=== PATIENT | female | born 1955 | race Caucasian/White ===

== ENCOUNTER 2019-11-07 12:01 | Inpatient (IN) ==
[2019-11-07] MEDS ORDERED: MoRPHine SULFATE 4 MG/ML 1 ML CARP\\VIAL IV STA (12:26)
[2019-11-07] MEDS ORDERED: ONDANSETRON INJ 2 MG/ML 2 ML VIAL IV STA (12:26)
[2019-11-07] MEDS ORDERED: SODIUM CHLORIDE 0.9% 500 ML IV SCH ×2 (12:30→13:15)
--- NOTE | 2019-11-07 12:32 | Emergency Department Note ---
History of Present Illness General Chief complaint: Abdominal Pain Stated complaint: STOMACH PAIN FOR 4/5 DAYS - VOMITING Time Seen by Provider: 11/07/19 12:14 Source: patient Mode of arrival: ambulatory Limitations: no limitations History of Present Illness Provider complaint: Lower abdominal pain Onset (ago): day(s) 4 Location: abdomen Radiation: non-radiation Severity: severe Pain Consistency: + constant Quality: + burning and + other (Cramping) Relieved By: + none Associated symptoms: + fever/chills (Tactile fevers) and + nausea/vomiting; no chest pain, no cough and no shortness of breath This is a 64-year-old female presents with lower abdominal pain for the past 4 to 5 days. She describes it as a cramping and burning sensation. It is associated with nausea and vomiting. She also states that for the past few days she has had urinary frequency and urgency with little output. She also states that she has not been able to have a bowel movement 2 days but also admits that she has not really been eating very much. She did try to eat a bowl of cereal today and she threw it up. She complains of tactile fevers. She denies any known exposure to COVID-19 or any shortness of breath, cough, or chest pain. She has no loss of taste but states that she chronically has loss of smell from chronic allergies. No modifying factors for her pain. She rates it as severe. Home Medications Home Medications Medication Instructions Recorded Confirmed Type acetaminophen [Tylenol Extra 500 mg PO Q8H PRN 08/28/19 11/07/19 History Strength] aspirin 325 mg PO DAILY PRN 08/28/19 11/07/19 History bupropion HCl 150 mg PO QAM 08/28/19 11/07/19 History hydroxyzine pamoate 25 mg PO BID 08/28/19 11/07/19 History hydroxyzine pamoate 50 mg PO HS 08/28/19 11/07/19 History quetiapine 300 mg PO HS 08/28/19 11/07/19 History trazodone 150 mg PO HS PRN 08/28/19 11/07/19 History Allergies Allergy/AdvReac Type Severity Reaction Status Date / Time No Known Allergies Allergy Unverified 11/07/19 13:11 Past Med/Surg History Medical History Depression Surgical History No pertinent past surgical history Social History Preferred Language: Luxembour[place] Feels Safe at Home: Yes Smoking Status: Unknown if ever smoked Review of Systems See HPI for pertinent positives & negatives. and A total of 10 systems reviewed and were otherwise negative Physical Exam Vital Signs Vital Signs - 24 hr 11/07/19 12:04 11/07/19 12:43 11/07/19 13:19 Temperature 37.4 C Temperature Source Oral Pulse Rate 94 H 82 Pulse Rate from SpO2 Sensor Respiratory Rate 20 16 Respiratory Effort / Characteristics Non-Labored Spontaneous Respiratory Depth Normal Respiratory Pattern Regular Blood Pressure 171/84 H 139/75 Blood Pressure Mean 113 104 Blood Pressure Position Sitting Pulse Oximetry 97 Oxygen Delivery Method Room Air Room Air Room Air Sepsis Recent Fever Within 48 Hours No Sepsis New/Unexplained Change in Mental Status No Sepsis Action Taken by Nursing No Action Required 11/07/19 13:20 11/07/19 13:22 11/07/19 13:30 Temperature Temperature Source Pulse Rate 78 89 Pulse Rate from SpO2 Sensor 76 88 Respiratory Rate 21 13 Respiratory Effort / Characteristics Respiratory Depth Respiratory Pattern Blood Pressure Blood Pressure Mean Blood Pressure Position Pulse Oximetry 96 94 Oxygen Delivery Method Room Air Room Air Room Air Sepsis Recent Fever Within 48 Hours Sepsis New/Unexplained Change in Mental Status Sepsis Action Taken by Nursing 11/07/19 13:31 11/07/19 13:40 11/07/19 13:50 Temperature Temperature Source Pulse Rate 86 89 82 Pulse Rate from SpO2 Sensor 86 87 Respiratory Rate 15 22 19 Respiratory Effort / Characteristics Respiratory Depth Respiratory Pattern Blood Pressure 180/82 H Blood Pressure Mean 125 Blood Pressure Position Pulse Oximetry 94 97 Oxygen Delivery Method Room Air Room Air Room Air Sepsis Recent Fever Within 48 Hours Sepsis New/Unexplained Change in Mental Status Sepsis Action Taken by Nursing 11/07/19 14:00 11/07/19 14:10 11/07/19 14:20 Temperature Temperature Source Pulse Rate 84 79 81 Pulse Rate from SpO2 Sensor Respiratory Rate 17 18 22 Respiratory Effort / Characteristics Respiratory Depth Respiratory Pattern Blood Pressure Blood Pressure Mean Blood Pressure Position Pulse Oximetry Oxygen Delivery Method Room Air Room Air Room Air Sepsis Recent Fever Within 48 Hours Sepsis New/Unexplained Change in Mental Status Sepsis Action Taken by Nursing 11/07/19 14:30 11/07/19 14:40 Temperature Temperature Source Pulse Rate 84 77 Pulse Rate from SpO2 Sensor Respiratory Rate 17 17 Respiratory Effort / Characteristics Respiratory Depth Respiratory Pattern Blood Pressure Blood Pressure Mean Blood Pressure Position Pulse Oximetry Oxygen Delivery Method Room Air Room Air Sepsis Recent Fever Within 48 Hours Sepsis New/Unexplained Change in Mental Status Sepsis Action Taken by Nursing Constitutional: Vital signs reviewed. Eyes: Pupils are equal round reactive to light. Conjunctiva are noninjected. ENT: Pharynx is clear without erythema or exudate. Mucous membranes are moist. Neck supple without meningeal signs. Respiratory: Clear to auscultation bilaterally. Breath sounds are equal bilaterally. Cardiovascular: Regular rate and rhythm. No rubs or gallops. GI: Soft, nondistended left lower quadrant and suprapubic tenderness. No guarding. Bowel sounds are present. Musculoskeletal: No peripheral edema. No lower extremity tenderness. Integumentary: No cyanosis. or jaundice. Neurological: The patient is awake and alert. No focal deficits. Psychiatric: Anxious appearing. Course Administered Medications Sodium Chloride (Nss 1000ml) 1,000 mls @ 125 mls/hr IV .Q8H [facility] Stop: 12/07/19 16:59 Last Admin: 11/07/19 16:23 Dose: 125 mls/hr Documented by: [id number] Discontinued Medications Sodium Chloride (Nss) 500 mls @ 999 mls/hr IV .Q31M [facility] Stop: 11/07/19 13:00 Last Infusion: 11/07/19 13:16 Dose: 0 mls/hr Documented by: [id number] Admin: 11/07/19 12:42 Dose: 999 mls/hr Documented by: [id number] Sodium Chloride (Nss) 500 mls @ 125 mls/hr IV .Q4H [facility] Stop: 12/07/19 13:14 Last Infusion: 11/07/19 15:55 Dose: 0 mls/hr Documented by: [id number] Admin: 11/07/19 13:19 Dose: 125 mls/hr Documented by: [id number] Piperacillin Sod/Tazobactam (Sod 3.375 gm/ Dextrose) 115 mls @ 230 mls/hr IV 1630 ONE; Protocol Stop: 11/07/19 16:59 Last Infusion: 11/07/19 17:09 Dose: 0 mls/hr Documented by: [id number] Admin: 11/07/19 16:39 Dose: 230 mls/hr Documented by: [id number] Lorazepam (Ativan) 0.5 mg PO ONE ONE Stop: 11/07/19 16:19 Last Admin: 11/07/19 16:23 Dose: 0.5 mg Documented by: [id number] Morphine Sulfate (Morphine Sulfate) 4 mg IV NOW STA Stop: 11/07/19 12:27 Last Admin: 11/07/19 12:40 Dose: 4 mg Documented by: [id number] Morphine Sulfate (Morphine Sulfate) 2 mg IV NOW STA Stop: 11/07/19 13:10 Last Admin: 11/07/19 13:19 Dose: 2 mg Documented by: [id number] Morphine Sulfate (Morphine Sulfate) 2 mg IV NOW STA Stop: 11/07/19 16:55 Last Admin: 11/07/19 17:24 Dose: 2 mg Documented by: [id number] Ondansetron HCl (Zofran) 4 mg IV NOW STA Stop: 11/07/19 12:27 Last Admin: 11/07/19 12:40 Dose: 4 mg Documented by: [id number] Medical Decision Making Differential Diagnosis Diverticulitis, perforation, abscess, bowel obstruction, constipation, UTI, urinary retention Medical Records Attestation: I reviewed the patient's medical records. Patient was seen here September 29 for urinary symptoms. She was diagnosed with UTI and placed on 3 days of Cipro. Urine culture was negative. Home Medications Current Medication List: was personally reviewed by me Laboratory Data Attestation: I reviewed the patient's lab results. Result diagrams: 11/07/19 12:33 11/07/19 12:33 Lab Results 11/07/19 11/07/19 11/07/19 Range/Units 12:33 12:33 12:33 WBC 11.81 H (4.8-10.8) K/uL RBC 4.53 (4.2-5.4) M/uL Hgb 11.6 L (12.0-16.0) g/dL Hct 36.5 L (37-47) % MCV 80.6 (80-100) fL MCH 25.6 (25-34) pg MCHC 31.8 L (32-36) g/dL RDW Std Deviation 42.8 (36.4-46.3) fL RDW Coeff of Chanelle 14.6 H (11.5-14.5) % Plt Count 322 (130-400) K/uL MPV 9.1 (7.4-10.4) fL Immature Gran % (Auto) 0.3 % Neut % (Auto) 70.6 % Lymph % (Auto) 16.1 % [place] % (Auto) 8.6 % Eos % (Auto) 3.9 % Baso % (Auto) 0.5 % Immature Gran # (Auto) 0.04 H (0.00-0.02) K/uL Neut # (Auto) 8.33 H (1.4-6.5) K/uL Lymph # (Auto) 1.90 (1.2-3.4) K/uL [place] # (Auto) 1.02 H (0.11-0.59) K/uL Eos # (Auto) 0.46 (0-0.5) K/uL Baso # (Auto) 0.06 (0-0.2) K/uL Sodium 138 (136-145) mmol/L Potassium 3.8 (3.5-5.1) mmol/L Chloride 103 (98-107) mmol/L Carbon Dioxide 27 (21-32) mmol/L Anion Gap 8.0 (3-11) BUN 29 H (7-18) mg/dl Creatinine 2.25 H (0.6-1.2) mg/dl Est Cr Clr Drug Dosing 28.1 ml/min Est GFR ( Amer) 25.7 Est GFR (Non-Af Amer) 22.2 BUN/Creatinine Ratio 13.1 (10-20) Glucose 193 H (70-99) mg/dl Calcium 9.5 (8.5-10.1) mg/dl Total Bilirubin 0.5 (0.2-1) mg/dl AST 17 (15-37) U/L ALT 33 (12-78) U/L Alkaline Phosphatase 125 H (45-117) U/L Total Protein 7.6 (6.4-8.2) gm/dl Albumin 3.3 L (3.4-5.0) gm/dl Globulin 4.3 H (2.5-4.0) gm/dl Albumin/Globulin Ratio 0.8 L (0.9-2) Lipase 94 Cancelled (73-393) U/L Urine Color Urine Appearance (Clear) Urine pH (4.5-7.5) Ur Specific [place] (1.000-1.030) Urine Protein (Negative) Urine Glucose (UA) (Negative) Urine Ketones (Negative) Urine Blood (Negative) Urine Nitrite (Negative) Urine Bilirubin (Negative) Urine Urobilinogen (Negative) Ur Leukocyte Esterase (Negative) 11/07/19 Range/Units 13:35 WBC (4.8-10.8) K/uL RBC (4.2-5.4) M/uL Hgb (12.0-16.0) g/dL Hct (37-47) % MCV (80-100) fL MCH (25-34) pg MCHC (32-36) g/dL RDW Std Deviation (36.4-46.3) fL RDW Coeff of Chanelle (11.5-14.5) % Plt Count (130-400) K/uL MPV (7.4-10.4) fL Immature Gran % (Auto) % Neut % (Auto) % Lymph % (Auto) % [place] % (Auto) % Eos % (Auto) % Baso % (Auto) % Immature Gran # (Auto) (0.00-0.02) K/uL Neut # (Auto) (1.4-6.5) K/uL Lymph # (Auto) (1.2-3.4) K/uL [place] # (Auto) (0.11-0.59) K/uL Eos # (Auto) (0-0.5) K/uL Baso # (Auto) (0-0.2) K/uL Sodium (136-145) mmol/L Potassium (3.5-5.1) mmol/L Chloride (98-107) mmol/L Carbon Dioxide (21-32) mmol/L Anion Gap (3-11) BUN (7-18) mg/dl Creatinine (0.6-1.2) mg/dl Est Cr Clr Drug Dosing ml/min Est GFR ( Amer) Est GFR (Non-Af Amer) BUN/Creatinine Ratio (10-20) Glucose (70-99) mg/dl Calcium (8.5-10.1) mg/dl Total Bilirubin (0.2-1) mg/dl AST (15-37) U/L ALT (12-78) U/L Alkaline Phosphatase (45-117) U/L Total Protein (6.4-8.2) gm/dl Albumin (3.4-5.0) gm/dl Globulin (2.5-4.0) gm/dl Albumin/Globulin Ratio (0.9-2) Lipase (73-393) U/L Urine Color Yellow Urine Appearance Clear (Clear) Urine pH 7.0 (4.5-7.5) Ur Specific [place] 1.016 (1.000-1.030) Urine Protein Negative (Negative) Urine Glucose (UA) Negative (Negative) Urine Ketones Negative (Negative) Urine Blood Negative (Negative) Urine Nitrite Negative (Negative) Urine Bilirubin Negative (Negative) Urine Urobilinogen Negative (Negative) Ur Leukocyte Esterase Negative (Negative) Imaging Data Radiologist's Impression: CT OF THE ABDOMEN AND PELVIS WITHOUT CONTRAST CLINICAL HISTORY: Lower abdominal pain. Evaluate for diverticulitis or obstruction. COMPARISON STUDY: CT of the abdomen and pelvis October 29, 2008. KUB May 02, 2010. TECHNIQUE: Axial images of the abdomen and pelvis were obtained without IV contrast. Images were reviewed in the axial, sagittal, and coronal planes. Automated exposure control was utilized for the study. A dose lowering technique was utilized adhering to the principles of ALARA. FINDINGS: Lung bases are unremarkable. Evaluation of the abdomen and pelvis is suboptimal on this unenhanced examination. The gallbladder is mildly distended. There is no pericholecystic infiltration. Unenhanced images of the liver, spleen, adrenal glands and pancreas are unremarkable. Small bilateral renal calculi measure up to 3 mm. There are no ureteral calculi. There is no hydronephrosis or hydroureter. Note is made of a large amount stool within the colon. There is mild wall thickening and pericolonic infiltration involving the mid to distal descending colon and the proximal sigmoid colon with change in caliber at the level of the proximal sigmoid colon shown on axial image 338 of 486. No free air or abscess is present. Trace adjacent fluid is noted. There is no stool within the rectum. No renal lesion is identified transition point although these may be occult by CT. IMPRESSION: 1. Large amount of stool within the colon, particularly within the mid to distal descending colon and proximal sigmoid colon with associated mild colonic wall t hickening and pericolonic infiltration. Stercoral colitis is favored. A nonspecific colitis could appear similar but is considered less likely. No free air or abscess. Discrete caliber change at the level of the proximal sigmoid colon with significant upstream stool and no downstream stool. No lesion identified by CT although mucosal lesions may be occult by CT and nonemergent colonoscopy is recommended. 2. Bilateral nephrolithiasis. No ureteral calculi or hydronephrosis. 3. Mild gallbladder distention. No pericholecystic infiltration. ACT 112: Negative or not required by law. Electronically signed by: Nir Yang M.D. 11/07/2019 1:17 PM Blood Pressure Blood Pressure Findings: Elevated blood pressure Blood Pressure Disposition: Referred to patients primary care provider MEAGHAN Narrative I did evaluate the patient as noted above. The patient is presenting with lower abdominal pain with tactile fevers and vomiting. She is tender in the left lower quadrant and suprapubic region. She has also had limited bowel movements and decreased urination. IV access was established. The patient was placed on a continuous radiation monitor. I did treat the patient with normal saline, morphine and Zofran IV. She had continued pain and so I gave her an additional 2 mg IV. I did order a urine analysis. There is no evidence of a UTI. I did order and review the patient's blood work as noted in the electronic medical record. Her white blood cell count is slightly elevated. She is slightly anemic. Creatinine is elevated at 2.25. I did give her additional IV fluids with normal saline. I did order a CT of the abdomen and pelvis. I did review the images myself as well as the radiology report as described above. There is no evidence of bowel obstruction but there is significant fecal retention. No free air or abscess is noted. I did discuss the test results with the patient. I did order a milk and molasses enema. I did recommend hospitalization for further care and evaluation. I did discuss the case with the hospitalist and director case management. Impression & Plan NATTY (acute kidney injury), Abdominal pain, Constipation Discharge Plan Visit Data *Final* Discharge Date/Time: 11/07/19 15:28 Chief Complaint: Abdominal Pain Stated Complaint: STOMACH PAIN FOR 4/5 DAYS - VOMITING ED Provider: Zach Arndt Discharge Problem: NATTY (acute kidney injury), Abdominal pain, Constipation Patient Disposition: Admitted As Inpatient Condition: Good Discharge Instructions Interventions: ED Discharge Assessment Last Done: 11/07/19 15:28 Discharge Problem: Abdominal pain Qualifiers: Abdominal location: upper abdomen, unspecified Qualified Code(s): R10.10 - Upper abdominal pain, unspecified Constipation Qualifiers: Constipation type: unspecified constipation type Qualified Code(s): K59.00 - Constipation, unspecified
[2019-11-07 12:45] LABS: Basophils # (auto) 0.06 K/uL (0-0.2); Basophils % (auto) 0.5 %; Eosinophils # (auto) 0.46 K/uL (0-0.5); Eosinophils % (auto) 3.9 %; Hematocrit (blood only) 36.5 % (37-47); Hemoglobin 11.6 g/dL (12.0-16.0); Immature Granulocytes # (auto) 0.04 K/uL (0.00-0.02); Immature Granulocytes % (auto) 0.3 %; Lymphocytes % (auto) 16.1 %; Mean Corpuscular Hemoglobin 25.6 pg (25-34); Mean Corpuscular Hgb Conc 31.8 g/dL (32-36); Mean Corpuscular Volume 80.6 fL (80-100); Mean Platelet Volume 9.1 fL (7.4-10.4); Monocytes # (auto) 1.02 K/uL (0.11-0.59); Monocytes % (auto) 8.6 %; Neutrophils # (auto) 8.33 K/uL (1.4-6.5); Neutrophils % (auto) 70.6 %; Platelet Count 322 K/uL (130-400); RDW Coefficient of Variation 14.6 % (11.5-14.5); RDW Standard Deviation 42.8 fL (36.4-46.3); Red Blood Count 4.53 M/uL (4.2-5.4); White Blood Count 11.81 K/uL (4.8-10.8)
[2019-11-07 13:03] LABS: Albumin Level 3.3 gm/dl (3.4-5.0); BUN Creatinine Ratio 13.1 (10-20); Calcium 9.5 mg/dl (8.5-10.1); Creatinine Clr Calc Pharmacy 28.1 ml/min; Est GFR (African American) 25.7; Est GFR (Non-African American) 22.2; Potassium 3.8 mmol/L (3.5-5.1)
[2019-11-07 13:06] LABS: Albumin Globulin Ratio 0.8 (0.9-2); Bilirubin,Total 0.5 mg/dl (0.2-1); Globulin 4.3 gm/dl (2.5-4.0); Total Protein 7.6 gm/dl (6.4-8.2)
[2019-11-07] MEDS ORDERED: MoRPHine SULFATE 2 MG/ML CARP IV STA ×2 (13:09→16:54)
--- NOTE | 2019-11-07 13:18 | CT Scan Report ---
CT OF THE ABDOMEN AND PELVIS WITHOUT CONTRAST CLINICAL HISTORY: Lower abdominal pain. Evaluate for diverticulitis or obstruction. COMPARISON STUDY: CT of the abdomen and pelvis October 29, 2008. KUB May 02, 2010. TECHNIQUE: Axial images of the abdomen and pelvis were obtained without IV contrast. Images were revi ewed in the axial, sagittal, and coronal planes. Automated exposure control was utilized for the luis dy. A dose lowering technique was utilized adhering to the principles of ALARA. FINDINGS: Lung bases are unremarkable. Evaluation of the abdomen and pelvis is suboptimal on this une nhanced examination. The gallbladder is mildly distended. There is no pericholecystic infiltration. U nenhanced images of the liver, spleen, adrenal glands and pancreas are unremarkable. Small bilateral renal calculi measure up to 3 mm. There are no ureteral calculi. There is no hydronephrosis or hydrou reter. Note is made of a large amount stool within the colon. There is mild wall thickening and peric olonic infiltration involving the mid to distal descending colon and the proximal sigmoid colon with change in caliber at the level of the proximal sigmoid colon shown on axial image 338 of 486. No free air or abscess is present. Trace adjacent fluid is noted. There is no stool within the rectum. No re nal lesion is identified transition point although these may be occult by CT. IMPRESSION: 1. Large amount of stool within the colon, particularly within the mid to distal descending colon and proximal sigmoid colon with associated mild colonic wall thickening and pericolonic infiltration. St ercoral colitis is favored. A nonspecific colitis could appear similar but is considered less likely. No free air or abscess. Discrete caliber change at the level of the proximal sigmoid colon with sign ificant upstream stool and no downstream stool. No lesion identified by CT although mucosal lesions m ay be occult by CT and nonemergent colonoscopy is recommended. 2. Bilateral nephrolithiasis. No ureteral calculi or hydronephrosis. 3. Mild gallbladder distention. No pericholecystic infiltration. ACT 112: Negative or not required by law. Electronically signed by: Nir Yang M.D. 11/07/2019 1:17 PM
[2019-11-07 14:11] LABS: Appearance Urine Clear (Clear); Bilirubin Urine Negative (Negative); Blood Urine Negative (Negative); Color Urine Yellow; Glucose Urine UA Negative (Negative); Ketones Urine Negative (Negative); Leukocyte Esterase Urine Negative (Negative); Nitrite Urine Negative (Negative); Protein Urine Negative (Negative); Specific Gravity Urine 1.016 (1.000-1.030); Urobilinogen Urine Negative (Negative)
--- NOTE | 2019-11-07 14:53 | History & Physical Report ---
Date of Service November 07, 2019 Assessment & Plan (1) NATTY (acute kidney injury): Admit med surg Secondary to dehydration from low po intake nausea and dry heaves over the last few days. Creat 2.25 on admission NSS @ 125 mls/hr CMP, CBC am (2) Abdominal pain: On CT - large amount of stool in the colon with stercoral colitis. No lesion identified but recommend follow up non emergent colonoscopy. Mild gallbladder distention. No pericholecystic infiltration. Secondary to constipation U/A is clean, interstitial cystitis? Will give pyridium to see if this alleviates bladder pain at all. Simon catheter Patient with leukocytosis and colitis - will give IV Zosyn NPO for now (3) Constipation: Milk and molasses enema in ED Colace Will wait to see if enema is successful, many need to use a soap suds enema if not (4) Anxiety: Continue home vistaril, quetiapine, trazadone Patient is visibly anxious on exam and complaining of feeling so - one time dose of ativan for patient's anxiety (5) Depression: As above (6) Elevated alkaline phosphatase level: repeat level am (7) Hyperglycemia: Blood sugar 193 on admission, no history of DM A1c am (8) DVT prophylaxis: heparin subq Case management to assist with concerns for patient's who is at home 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 History of Present Illness Ms. Suarez presents for abdominal pain with dry heaving x 4-5 days. Pain is central to left lower abdomen. She has not had a bowel movement in at least two days She also has had urinary hesitancy. She denies fevers or aches, cough, sob, chest pain, palpitations, or skin rash. She also has fairly severe anxiety. She has no sick contacts. Her partner and her live alone and have not seen anyone else in 2 weeks since her last trip to the grocery store. 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 Pmhx: anxiety Social: lives with partner, never smoker, no alcohol, retired Family: No significant family medical history Primary Care Provider: NO PCP Allergies Allergy/AdvReac Type Severity Reaction Status Date / Time No Known Allergies Allergy Unverified 11/07/19 13:11 Home Medications Home Medications Medication Instructions Recorded Confirmed Type acetaminophen [Tylenol Extra 500 mg PO Q8H PRN 08/28/19 11/07/19 History Strength] aspirin 325 mg PO DAILY PRN 08/28/19 11/07/19 History bupropion HCl 150 mg PO QAM 08/28/19 11/07/19 History hydroxyzine pamoate 25 mg PO BID 08/28/19 11/07/19 History hydroxyzine pamoate 50 mg PO HS 08/28/19 11/07/19 History quetiapine 300 mg PO HS 08/28/19 11/07/19 History trazodone 150 mg PO HS PRN 08/28/19 11/07/19 History Past Med/Surg History Medical History Depression Surgical History No pertinent past surgical history Family History (Updated 11/07/19 @ 18:58 by Pedro Boo) Denies family history of Colorectal cancer Colonic polyp Social History Preferred Language: Panamanian Communication Ability: Effective 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 Beliefs That Will Affect Care: Islam Islam Beliefs: Mandaeism Belief Current Living Situation: Spouse Other Information That Helps Us Care for You: No Feels Safe at Home: Yes Smoking Status: Never smoker Do You Dip or Chew Tobacco: No ; Second Hand Exposure: Yes ; Tobacco Cessation Education Requested by Patient: No Hx Alcohol Use: No Hx Substance Use: No Review of Systems Review of Systems: All systems reviewed & are unremarkable except as noted in HPI & below Physical Exam Physical Exam: General: no distress Eyes: normal inspection, PERLL Respiratory: chest non tender, clear to auscultation, normal breath sounds, no respiratory distress, no accessory muscle use Cardiac: regular rate and rhythm, no rub or gallop, no murmur, no edema, no jvd GI/: active bowel sounds, abdomen tender left lower quadrant, soft, non distended Extremities: normal range of motion, normal strength, non tender Neuro:oriented x 3, moves all extremities Psych: alert, anxious mood and affect Skin: normal color, dry Results & Data Results & Data ([facility]) Vital Signs (Past 12 Hours) Vital Signs Temp Pulse Resp BP Pulse Ox 11/07/19 13:20 78 21 96 11/07/19 13:19 82 16 11/07/19 12:43 139/75 11/07/19 12:04 37.4 C 94 H 20 171/84 H 97 Code Status & VTE Plan Code Status full Supervising Physician Co-Signing Physician Notes Attending Attestation and Admission Note: Pt seen/examined, chart reviewed, admission care plan d/w TRANSCRIPTER Arlene Wade. I agree w/ the nevarez components of her documentation. 64yo female with history of depression/anxiety disorder presents with severe left-sided abdominal pain of several days duration. Associated with nausea, anorexia, difficulty voiding, and severe constipation. She cannot remember when her last BM was - perhaps 7+ days ago. She denies h/o constipation. Last colonoscopy was well over 10+ years ago or longer. Denies personal h/o colonic polyps. Denies weight loss in the last few months, changes in bowel habits, or BRBPR. Just before my assessment she received an enema but could not hold such and thus did not pass any stool. PMH, PSH, allergies, meds, sochx, famhx - reviewed VSS, no fever gen - uncomfortable due to abd pain mouth - MM dry neck - no JVD heart - RRR, s1 s2, no murmur lungs - CTA b/l abd - distended, tender LLQ and at junction of LUQ/LLQ; BS+; no HSM; no peritoneal signs ext - no edema, pulses 2+ b/l labs - cr 2.2 glucose nearly [address] abd/pelvis - reviewed - stercoral colitis suspected with copious left-sided stool; b/l kidney stones in the kidney pelvices; gall bladder distension A/P: 1. severe abd pain - 2nd to significant constipation with evidence of stercoral colitis on CT. No perforation/free air on CT. 2. urinary voiding issues - suspect 2nd to severe pain in setting of #1. u/a not suspicious for UTI. 3. acute kidney injury - prerenal from poor PO intake, etc. 4. hyperglycemia 5. depression/anxiety. agree with enema [place] x 1-2 follow this with miralax q1h x 3 doses (may need more depending on response) reasonable to use zosyn for colitis given severity of symptoms and radiographic findings bladder scan for urinary retention; simon if needed NPO except ice chips/sips pain meds - patient counseled that it will help pain but make the constipation worse would hold hydroxyzine as this may worsen constipation needs colonoscopy in future as outpatient given CT "cut-off" finding in the sigmoid if no relief of symptoms with above plan then obtain GI consult in am for inpatient recs IV fluids for #3; repeat BMP am Pedro Boo MD PG Care Time/CCT Total # of Minutes Spent Total Time Spent with Patient: Total time spent is greater than 50% in coordination of care (as documented) at patient's floor/unit and/or counseling patient: Coding Level of Care Code 64538 Initial Inpt Care Lvl 3 Diagnoses NATTY (acute kidney injury) N17.9 Abdominal pain R10.10 Abdominal location: upper abdomen, unspecified Constipation K59.00 Constipation type: unspecified constipation type Anxiety F41.9 Depression F32.9 Elevated alkaline phosphatase level R74.8 Hyperglycemia R73.9 DVT prophylaxis Z29.9 (1) Abdominal pain Abdominal location: upper abdomen, unspecified Qualified Code(s): R10.10 - Upper abdominal pain, unspecified (2) Constipation Constipation type: unspecified constipation type Qualified Code(s): K59.00 - Constipation, unspecified
[2019-11-07] MEDS ORDERED: PIPERACILL/TAZOBAC CONSULT ACTIVE PRN (16:07)
[2019-11-07] MEDS ORDERED: PHENAZOPYRIDINE HCL 100 MG TAB PO PRN (16:12)
[2019-11-07] MEDS ORDERED: LORazepam 0.5 MG TAB PO ONE (16:18)
[2019-11-07] MEDS: SODIUM CHLORIDE 0.9% 1000ML 1,000 ML IV SCH (16:23)
[2019-11-07] MEDS ORDERED: PIPERACILLIN/TAZOBACTAM 3.375 GM in DEXTROSE 5% 100 ML IV ONE (16:30)
[2019-11-07] MEDS: POLYETHYLENE (MIRALAX) 17 GM PACK PO SCH ×4 (17:54→21:03)
[2019-11-07] MEDS ORDERED: PNEUMOCOCCAL Polysaccharide Vaccine 25mcg/0.5mL vial/Syr IM ONE (18:45)
[2019-11-07] MEDS: ACETAMINOPHEN 500 MG TAB PO PRN (19:53)
[2019-11-07] MEDS: ONDANSETRON INJ 2 MG/ML 2 ML VIAL IV PRN (19:53)
[2019-11-07] MEDS ORDERED: QUETIAPINE FUMARATE 300 MG TABCR PO SCH (21:00)
[2019-11-07] MEDS: DOCUSATE SODIUM 100 MG CAP PO SCH (21:20)
[2019-11-07] MEDS: VENLAFAXINE HCL XR 75 MG CAPXR PO SCH (21:20)
[2019-11-07] MEDS: QUETIAPINE FUMARATE 150 MG TABCR PO SCH (21:20)
[2019-11-07] MEDS: HEPARIN SOD 5,000 UNIT/0.5 ML VIAL SQ SCH (21:21)
[2019-11-07] MEDS: PIPERACILLIN/TAZOBACTAM 3.375 GM in DEXTROSE 5% 100 ML/100 ML BAG IV SCH (21:24)
[2019-11-07] MEDS ORDERED: LORazepam 0.5 MG TAB PO STA (23:36)
[2019-11-08] MEDS: guaiFENesin 600 MG TABCR PO PRN ×2 (00:20→15:27)
[2019-11-08] MEDS: SODIUM CHLORIDE 0.9% 1000ML 1,000 ML IV SCH ×4 (00:21→23:18)
[2019-11-08] MEDS: PIPERACILLIN/TAZOBACTAM 3.375 GM in DEXTROSE 5% 100 ML/100 ML BAG IV SCH ×2 (05:35→14:12)
[2019-11-08 06:18] LABS: Basophils # (auto) 0.05 K/uL (0-0.2); Basophils % (auto) 0.5 %; Eosinophils # (auto) 0.47 K/uL (0-0.5); Eosinophils % (auto) 4.4 %; Hemoglobin 10.4 g/dL (12.0-16.0); Immature Granulocytes # (auto) 0.03 K/uL (0.00-0.02); Immature Granulocytes % (auto) 0.3 %; Lymphocytes # (auto) 1.81 K/uL (1.2-3.4); Lymphocytes % (auto) 16.9 %; Mean Corpuscular Hemoglobin 25.2 pg (25-34); Mean Corpuscular Hgb Conc 31.5 g/dL (32-36); Mean Corpuscular Volume 80.1 fL (80-100); Mean Platelet Volume 8.9 fL (7.4-10.4); Monocytes % (auto) 12.1 %; Neutrophils # (auto) 7.06 K/uL (1.4-6.5); Neutrophils % (auto) 65.8 %; Platelet Count 286 K/uL (130-400); RDW Coefficient of Variation 14.7 % (11.5-14.5); RDW Standard Deviation 42.8 fL (36.4-46.3); Red Blood Count 4.12 M/uL (4.2-5.4); White Blood Count 10.72 K/uL (4.8-10.8)
[2019-11-08 06:47] LABS: Albumin Globulin Ratio 0.7 (0.9-2); Albumin Level 2.7 gm/dl (3.4-5.0); Bilirubin,Total 0.5 mg/dl (0.2-1); Calcium 8.8 mg/dl (8.5-10.1); Creatinine Clr Calc Pharmacy 34.4 ml/min; Est GFR (African American) 32.8; Est GFR (Non-African American) 28.3; Potassium 4.4 mmol/L (3.5-5.1); Total Protein 6.7 gm/dl (6.4-8.2)
[2019-11-08 07:50] LABS: Estimated Average Glucose 163 mg/dl; Hemoglobin A1C 7.3 % (4.5-5.6)
[2019-11-08] MEDS: DOCUSATE SODIUM 100 MG CAP PO SCH ×2 (07:53→20:33)
[2019-11-08] MEDS: BuPROPion SR 150 MG TABCR PO SCH (07:54)
[2019-11-08] MEDS: HEPARIN SOD 5,000 UNIT/0.5 ML VIAL SQ SCH ×2 (07:54→20:33)
[2019-11-08] MEDS: LORazepam 0.5 MG TAB PO PRN ×3 (08:52→23:29)
[2019-11-08] MEDS: DOCUSATE SODIUM/SENNA 50/8.6MG TAB PO SCH (12:12)
[2019-11-08] MEDS: POLYETHYLENE (MIRALAX) 17 GM PACK PO SCH (12:12)
[2019-11-08] MEDS: ACETAMINOPHEN 500 MG TAB PO PRN ×2 (15:27→23:29)
[2019-11-08] MEDS: ONDANSETRON INJ 2 MG/ML 2 ML VIAL IV PRN ×2 (15:28→23:30)
--- NOTE | 2019-11-08 17:24 | Hospitalist Progress Note ---
Date of Service November 08, 2019 Assessment & Plan (1) NATTY (acute kidney injury): Admit med surg Secondary to dehydration from low po intake nausea and dry heaves over the last few days. Creat 2.25 on admission continue NSS @ 125 mls/hr for tonight, reduce rate or stop fluids tomorrow Cr down to 1.8 today, repeat BMP in the morning electrolytes stable (2) Abdominal pain: On CT - large amount of stool in the colon with stercoral colitis. No lesion identified but recommend follow up non emergent colonoscopy. Mild gallbladder distention. No pericholecystic infiltration. Secondary to constipation large, hard BM last night after enema will place on Miralax daily and Senna S daily encouraged her to eat, stay well hydrated (3) Constipation: Milk and molasses enema in ED Colace had a BM see above (4) Anxiety: Continue home vistaril, quetiapine, trazadone Patient is visibly anxious on exam and complaining of feeling so - ordered Ativan q6 PRN, she takes this at home (5) Depression: As above (6) Elevated alkaline phosphatase level: repeat level am - normal today at 108 (7) Hyperglycemia: Blood sugar 193 on admission, no history of DM A1c am = 7.3% patient has new diagnosis of DM type II refer to DM educator, will refer to PCP for management will discuss starting Metformin on d/c (8) DVT prophylaxis: heparin subq Case management to assist with concerns for patient'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 Admission and Anticipated Discharge Date Admission Date: November 07, 2019 Subjective patient had a hard BM last night after the enema it was described as the size of a baseball she had a loose BM today today not eating well, no appetite even at home she says she eats [employer] cereal, one bowl a day, drinks hot chocolate she is stuck at home, cares for her significant other, not leaving the house due to COVID 19 encouraged her to eat and drink more discussed her HbA1c of 7.3%, told her that she has DM, she agrees to speak with DM educator tomorrow she will be referred to a PCP, has not seen a doctor in 8 years labs show that Cr improved to 1.8 from 2.2, electrolytes stable Review of Systems Review of Systems: All systems reviewed & are unremarkable except as noted in HPI & below Gastrointestinal: + diarrhea/loose stools; no abdominal pain, no nausea, no vomiting and no constipation Physical Exam Constitutional: WD/WN, vitals as above Eyes: PERRL, conjunctivae normal, anicteric sclerae ENMT: external ear and nose normal, oropharynx normal Neck: trachea midline, no thyromegaly Respiratory: normal respiratory effort, lungs clear to auscultation Cardiovascular: RRR, no murmur, no edema Gastrointestinal (Abdomen): normal bowel sounds, soft, nontender, no hepatosplenomegaly Musculoskeletal: no cyanosis or clubbing, extremities motor strength 5/5 Skin: no rashes, warm and dry Neurologic: patellar DTR's 2+ bilat, sensation intact and PERRL, EOMI, accommodation nl, no face palsy, no dysarthria Psychiatric: A+Ox3, euthymic affect Lymphatic: no cervical or axillary lymphadenopathy Results & Data Results & Data ([facility]) Vital Signs (Past 12 Hours) Vital Signs Temp Pulse Resp BP Pulse Ox 11/08/19 15:50 36.8 C 68 19 165/93 H 93 11/08/19 07:32 37.1 C 72 18 162/86 H 94 Laboratory Results Laboratory Results - last 24 hr 11/08/19 11/08/19 11/08/19 05:55 05:55 05:55 WBC 10.72 RBC 4.12 L Hgb 10.4 L Hct 33.0 L MCV 80.1 MCH 25.2 MCHC 31.5 L RDW Std Deviation 42.8 RDW Coeff of Chanelle 14.7 H Plt Count 286 MPV 8.9 Immature Gran % (Auto) 0.3 Neut % (Auto) 65.8 Lymph % (Auto) 16.9 Bay % (Auto) 12.1 Eos % (Auto) 4.4 Baso % (Auto) 0.5 Immature Gran # (Auto) 0.03 H Neut # (Auto) 7.06 H Lymph # (Auto) 1.81 Bay # (Auto) 1.30 H Eos # (Auto) 0.47 Baso # (Auto) 0.05 Sodium 138 Potassium 4.4 D Chloride 108 H Carbon Dioxide 23 Anion Gap 7.0 BUN 24 H Creatinine 1.84 H D Est Cr Clr Drug Dosing 34.4 Est GFR ( Amer) 32.8 Est GFR (Non-Af Amer) 28.3 BUN/Creatinine Ratio 13.0 Glucose 108 H Estimat Average Glucose 163 Hemoglobin A1c 7.3 H Calcium 8.8 Total Bilirubin 0.5 AST 20 ALT 31 Alkaline Phosphatase 108 Total Protein 6.7 Albumin 2.7 L Globulin 4.0 Albumin/Globulin Ratio 0.7 L Medications Administered Current Inpatient Medications Acetaminophen (Tylenol) 500 mg PO Q8H PRN PRN Reason: pain/fever Stop: 12/07/19 16:06 Last Admin: 11/08/19 15:27 Dose: 500 mg Documented by: Bupropion HCl (Wellbutrin-Sr) 150 mg PO QAM [facility] Stop: 12/08/19 08:59 Last Admin: 11/08/19 07:54 Dose: 150 mg Documented by: Docusate Sodium (Colace) 100 mg PO BID [facility] Stop: 12/07/19 20:59 Last Admin: 11/08/19 07:53 Dose: 100 mg Documented by: Guaifenesin (Mucinex) 600 mg PO Q12 PRN PRN Reason: Congestion Stop: 12/08/19 08:59 Last Admin: 11/08/19 15:27 Dose: 600 mg Documented by: Heparin Sodium (Porcine) (Heparin Sodium (Porcine)) 5,000 units SQ Q12 [facility] Stop: 12/07/19 20:59 Last Admin: 11/08/19 07:54 Dose: Not Given Documented by: Hydroxyzine HCl (Vistaril) 25 mg PO BID@0900,1400 [facility] Stop: 12/08/19 08:59 Hydroxyzine HCl (Vistaril) 50 mg PO HS [facility] Stop: 12/07/19 20:59 Sodium Chloride (Nss 1000ml) 1,000 mls @ 125 mls/hr IV .Q8H [facility] Stop: 12/07/19 16:59 Last Admin: 11/08/19 16:12 Dose: 125 mls/hr Documented by: Piperacillin Sod/Tazobactam (Sod 3.375 gm/ Dextrose) 100 ml in 115 mls @ 28.75 mls/hr IV Q8H [facility]; Protocol Stop: 11/17/19 21:59 Last Admin: 11/08/19 14:12 Dose: 28.8 mls/hr Documented by: Lorazepam (Ativan) 0.5 mg PO Q6 PRN PRN Reason: Anxiety Stop: 12/08/19 08:10 Last Admin: 11/08/19 15:28 Dose: 0.5 mg Documented by: Miscellaneous Information (Consult) 1 ea N/A UD PRN PRN Reason: Consult Stop: 12/07/19 16:06 Ondansetron HCl (Zofran) 4 mg IV Q6H PRN PRN Reason: Nausea Stop: 12/07/19 19:22 Last Admin: 11/08/19 15:28 Dose: 4 mg Documented by: Phenazopyridine HCl (Pyridium) 100 mg PO TID PRN PRN Reason: Bladder pain Stop: 12/07/19 16:11 Polyethylene Glycol (Miralax Powder Packet) 17 gm PO DAILY [facility] Stop: 12/08/19 11:44 Last Admin: 11/08/19 12:12 Dose: 17 gm Documented by: Quetiapine Fumarate (Seroquel Xr) 300 mg PO HS [facility] Stop: 12/07/19 20:59 Last Admin: 11/07/19 21:20 Dose: 300 mg Documented by: Senna/Docusate Sodium (Senokot S) 1 tab PO QAM [facility] Stop: 12/08/19 11:44 Last Admin: 11/08/19 12:12 Dose: 1 tab Documented by: Trazodone HCl (Desyrel) 150 mg PO HS PRN PRN Reason: Sleep Stop: 12/07/19 16:06 Venlafaxine HCl (Effexor Extended Release) 225 mg PO HS [facility] Stop: 12/07/19 20:59 Last Admin: 11/07/19 21:20 Dose: 225 mg Documented by: PG Care Time/CCT Total # of Minutes Spent Total Time Spent with Patient: Total time spent is greater than 50% in coordination of care (as documented) at patient's floor/unit and/or counseling patient: Coding Level of Care Code 50643 Subseq Hosp Care Lvl 3 Diagnoses NATTY (acute kidney injury) N17.9 Abdominal pain R10.10 Abdominal location: upper abdomen, unspecified Constipation K59.00 Constipation type: unspecified constipation type Anxiety F41.9 Depression F32.9 Elevated alkaline phosphatase level R74.8 Hyperglycemia R73.9 DVT prophylaxis Z29.9 (1) Abdominal pain Abdominal location: upper abdomen, unspecified Qualified Code(s): R10.10 - Upper abdominal pain, unspecified (2) Constipation Constipation type: unspecified constipation type Qualified Code(s): K59.00 - Constipation, unspecified
[2019-11-08] MEDS: VENLAFAXINE HCL XR 75 MG CAPXR PO SCH (20:33)
[2019-11-08] MEDS: QUETIAPINE FUMARATE 150 MG TABCR PO SCH (20:34)
[2019-11-08] MEDS: TRAZODONE HCL 50 MG TAB PO PRN (20:34)
[2019-11-09] MEDS: LORazepam 0.5 MG TAB PO PRN ×3 (06:16→19:34)
[2019-11-09] MEDS: guaiFENesin 600 MG TABCR PO PRN ×2 (06:32→20:34)
[2019-11-09 07:09] LABS: Calcium 8.5 mg/dl (8.5-10.1); Creatinine Clr Calc Pharmacy 36.6 ml/min; Est GFR (African American) 35.3; Est GFR (Non-African American) 30.5; Potassium 4.1 mmol/L (3.5-5.1)
[2019-11-09] MEDS: BuPROPion SR 150 MG TABCR PO SCH (08:05)
[2019-11-09] MEDS: DOCUSATE SODIUM 100 MG CAP PO SCH (08:06)
[2019-11-09] MEDS: HEPARIN SOD 5,000 UNIT/0.5 ML VIAL SQ SCH ×2 (08:06→20:35)
[2019-11-09] MEDS: DOCUSATE SODIUM/SENNA 50/8.6MG TAB PO SCH ×2 (08:06→20:34)
[2019-11-09] MEDS: POLYETHYLENE (MIRALAX) 17 GM PACK PO SCH (08:06)
[2019-11-09] MEDS: ONDANSETRON INJ 2 MG/ML 2 ML VIAL IV PRN ×2 (08:11→15:13)
[2019-11-09] MEDS: SODIUM CHLORIDE 0.9% 1000ML 1,000 ML IV SCH (09:00)
[2019-11-09] MEDS ORDERED: POLYETHYLENE (MIRALAX) 17 GM PACK PO PRN (09:27)
[2019-11-09] MEDS ORDERED: SODIUM CHLORIDE 0.65% NA SOLN 45 ML (OCEAN) PRN (09:29)
[2019-11-09] MEDS: LORATADINE 10 MG TAB PO SCH (10:08)
--- NOTE | 2019-11-09 12:45 | Hospitalist Progress Note ---
Date of Service November 09, 2019 Assessment & Plan (1) NATTY (acute kidney injury): Admit med surg Secondary to dehydration from low po intake nausea and dry heaves over the last few days. Creat 2.25 on admission treated with fluids, Cr down to 1.7, electrolytes stable, making urine stop fluids today, encourage more PO fluid intake, repeat labs in the morning (2) Abdominal pain: On CT - large amount of stool in the colon with stercoral colitis. No lesion identified but recommend follow up non emergent colonoscopy. Mild gallbladder distention. No pericholecystic infiltration. Secondary to constipation, patient has a poor diet, does not drink enough large, hard BM on 11/06 after enema placed on Miralax daily and Senna S daily two more BM yesterday change the Miralax to PRN, make Senna S BID encouraged her to eat, stay well hydrated, increase activity (3) Constipation: Milk and molasses enema in ED Colace had a BM see above (4) Anxiety: Continue home vistaril, quetiapine, trazadone Patient is visibly anxious on exam and complaining of feeling so - ordered Ativan q6 PRN, she takes this at home (5) Depression: As above (6) Elevated alkaline phosphatase level: repeat level am - normal today at 108 (7) Hyperglycemia: Blood sugar 193 on admission, no history of DM A1c am = 7.3% patient has new diagnosis of DM type II refer to DM educator, will refer to PCP for management discussed starting Metformin on d/c however, with her current GI issues (pain, constipation) will defer any treatment to PCP (8) DVT prophylaxis: heparin subq Admission and Anticipated Discharge Date Admission Date: November 07, 2019 Anticipated date of discharge: 11/10/19 Subjective patient is moving her bowels, still with some abdominal pain eating more, ate some eggs and toast this morning, most she has eaten in some time she admits to having some difficult swallowing, ongoing for months, mostly dry foods, goes down with liquids reviewed labs, Cr down to 1.7, K normal patient not feeling well enough to go home, discussed going home tomorrow, she agreed Review of Systems Review of Systems: All systems reviewed & are unremarkable except as noted in HPI & below Constitutional: + fatigue and + weakness; no fever, no chills and no sweats Gastrointestinal: + abdominal pain and + dysphagia; no nausea, no vomiting, no constipation, no diarrhea/loose stools, no blood in stools and no melena Physical Exam Constitutional: WD/WN, vitals as above Eyes: PERRL, conjunctivae normal, anicteric sclerae ENMT: external ear and nose normal, oropharynx normal Neck: trachea midline, no thyromegaly Respiratory: normal respiratory effort, lungs clear to auscultation Cardiovascular: RRR, no murmur, no edema Gastrointestinal (Abdomen): normal bowel sounds, soft, nontender, no hepatosplenomegaly Musculoskeletal: no cyanosis or clubbing, extremities motor strength 5/5 Skin: no rashes, warm and dry Neurologic: patellar DTR's 2+ bilat, sensation intact and PERRL, EOMI, accommodation nl, no face palsy, no dysarthria Psychiatric: A+Ox3, euthymic affect Lymphatic: no cervical or axillary lymphadenopathy Results & Data Results & Data ([facility]) Vital Signs (Past 12 Hours) Vital Signs Temp Pulse Resp BP Pulse Ox 11/09/19 07:00 36.7 C 66 18 162/78 H 95 Laboratory Results Laboratory Results - last 24 hr 11/09/19 06:03 Sodium 141 Potassium 4.1 Chloride 111 H Carbon Dioxide 22 Anion Gap 8.0 BUN 21 H Creatinine 1.73 H Est Cr Clr Drug Dosing 36.6 Est GFR ( Amer) 35.3 Est GFR (Non-Af Amer) 30.5 BUN/Creatinine Ratio 12.0 Glucose 116 H Calcium 8.5 Medications Administered Current Inpatient Medications Acetaminophen (Tylenol) 500 mg PO Q8H PRN PRN Reason: pain/fever Stop: 12/07/19 16:06 Last Admin: 11/08/19 23:29 Dose: 500 mg Documented by: Bupropion HCl (Wellbutrin-Sr) 150 mg PO QAM [facility] Stop: 12/08/19 08:59 Last Admin: 11/09/19 08:05 Dose: 150 mg Documented by: Guaifenesin (Mucinex) 600 mg PO Q12 PRN PRN Reason: Congestion Stop: 12/08/19 08:59 Last Admin: 11/09/19 06:32 Dose: 600 mg Documented by: Heparin Sodium (Porcine) (Heparin Sodium (Porcine)) 5,000 units SQ Q12 [facility] Stop: 12/07/19 20:59 Last Admin: 11/09/19 08:06 Dose: Not Given Documented by: Hydroxyzine HCl (Vistaril) 25 mg PO BID@0900,1400 [facility] Stop: 12/08/19 08:59 Hydroxyzine HCl (Vistaril) 50 mg PO HS [facility] Stop: 12/07/19 20:59 Loratadine (Claritin) 10 mg PO QAM [facility] Stop: 12/09/19 09:29 Last Admin: 11/09/19 10:08 Dose: 10 mg Documented by: Lorazepam (Ativan) 0.5 mg PO Q6 PRN PRN Reason: Anxiety Stop: 12/08/19 08:10 Last Admin: 11/09/19 06:16 Dose: 0.5 mg Documented by: Ondansetron HCl (Zofran) 4 mg IV Q6H PRN PRN Reason: Nausea Stop: 12/07/19 19:22 Last Admin: 11/09/19 08:11 Dose: 4 mg Documented by: Phenazopyridine HCl (Pyridium) 100 mg PO TID PRN PRN Reason: Bladder pain Stop: 12/07/19 16:11 Polyethylene Glycol (Miralax Powder Packet) 17 gm PO DAILY PRN PRN Reason: Constipation Stop: 12/08/19 11:44 Quetiapine Fumarate (Seroquel Xr) 300 mg PO HS [facility] Stop: 12/07/19 20:59 Last Admin: 11/08/19 20:34 Dose: 300 mg Documented by: Senna/Docusate Sodium (Senokot S) 1 tab PO BID [facility] Stop: 12/09/19 20:59 Sodium Chloride ([place] Nasal) 2 sprays NA Q2H PRN PRN Reason: Congestion Stop: 12/09/19 09:28 Trazodone HCl (Desyrel) 150 mg PO HS PRN PRN Reason: Sleep Stop: 12/07/19 16:06 Last Admin: 11/08/19 20:34 Dose: 150 mg Documented by: Venlafaxine HCl (Effexor Extended Release) 225 mg PO HS [facility] Stop: 12/07/19 20:59 Last Admin: 11/08/19 20:33 Dose: 225 mg Documented by: PG Care Time/CCT Total # of Minutes Spent Total Time Spent with Patient: Total time spent is greater than 50% in coordination of care (as documented) at patient's floor/unit and/or counseling patient: Coding Level of Care Code 69982 Subseq Hosp Care Lvl 3 Diagnoses NATTY (acute kidney injury) N17.9 Abdominal pain R10.10 Abdominal location: upper abdomen, unspecified Constipation K59.00 Constipation type: unspecified constipation type Anxiety F41.9 Depression F32.9 Elevated alkaline phosphatase level R74.8 Hyperglycemia R73.9 DVT prophylaxis Z29.9 (1) Abdominal pain Abdominal location: upper abdomen, unspecified Qualified Code(s): R10.10 - Upper abdominal pain, unspecified (2) Constipation Constipation type: unspecified constipation type Qualified Code(s): K59.00 - Constipation, unspecified
[2019-11-09] MEDS: ACETAMINOPHEN 500 MG TAB PO PRN (13:37)
[2019-11-09] MEDS ORDERED: CALCIUM CARBONATE 500 MG CHEWABLE TAB PO PRN (15:40)
[2019-11-09] MEDS ORDERED: lisinopriL 10 MG TAB PO SCH (15:45)
[2019-11-09] MEDS: PANTOprazole 40 MG TAB PO SCH (16:50)
[2019-11-09] MEDS: VENLAFAXINE HCL XR 75 MG CAPXR PO SCH (20:34)
[2019-11-09] MEDS: QUETIAPINE FUMARATE 150 MG TABCR PO SCH (20:34)
[2019-11-09] MEDS: TRAZODONE HCL 50 MG TAB PO PRN (20:39)
[2019-11-10] MEDS: LORazepam 0.5 MG TAB PO PRN ×4 (03:02→21:55)
[2019-11-10] MEDS: ACETAMINOPHEN 500 MG TAB PO PRN ×2 (03:03→16:39)
[2019-11-10 05:02] LABS: Hematocrit (blood only) 32.9 % (37-47); Hemoglobin 10.3 g/dL (12.0-16.0); Mean Corpuscular Hemoglobin 24.8 pg (25-34); Mean Corpuscular Hgb Conc 31.3 g/dL (32-36); Mean Corpuscular Volume 79.1 fL (80-100); Mean Platelet Volume 9.3 fL (7.4-10.4); Platelet Count 315 K/uL (130-400); RDW Coefficient of Variation 14.6 % (11.5-14.5); RDW Standard Deviation 42.3 fL (36.4-46.3); Red Blood Count 4.16 M/uL (4.2-5.4); White Blood Count 7.67 K/uL (4.8-10.8)
[2019-11-10 05:21] LABS: BUN Creatinine Ratio 10.9 (10-20); Calcium 8.6 mg/dl (8.5-10.1); Creatinine Clr Calc Pharmacy 38.8 ml/min; Est GFR (African American) 37.9; Est GFR (Non-African American) 32.7; Potassium 4.3 mmol/L (3.5-5.1)
[2019-11-10] MEDS: PANTOprazole 40 MG TAB PO SCH (08:00)
[2019-11-10] MEDS: lisinopriL 20 MG TAB PO SCH (08:00)
[2019-11-10] MEDS: BuPROPion SR 150 MG TABCR PO SCH (08:00)
[2019-11-10] MEDS: LORATADINE 10 MG TAB PO SCH (08:00)
[2019-11-10] MEDS: HEPARIN SOD 5,000 UNIT/0.5 ML VIAL SQ SCH ×2 (08:01→21:06)
[2019-11-10] MEDS: DOCUSATE SODIUM/SENNA 50/8.6MG TAB PO SCH ×2 (08:01→21:02)
[2019-11-10] MEDS: ONDANSETRON INJ 2 MG/ML 2 ML VIAL IV PRN ×2 (08:06→21:54)
--- NOTE | 2019-11-10 12:19 | Fluoroscopy Report ---
DOUBLE CONTRAST BARIUM ESOPHAGRAM CLINICAL HISTORY: Esophageal dysfunction. COMPARISON STUDY: No priors. TECHNIQUE: A standard air contrast barium esophagram is performed. Estimated loop of the esophagus wa s acquired. FINDINGS: The patient swallowed barium without difficulty. The barium pill became lodged above a smal l hiatal hernia and did not pass during the examination. There is mild dysmotility. The mucosal patte rn is normal. There is no evidence of intrinsic or extrinsic mass lesion. No aspiration was seen. Th e gastroesophageal junction distended normally. Gastroesophageal reflux was observed during the exami nation. Fluoroscopy time: 2.0 minutes. Fluoroscopic images: A cine loop was provided IMPRESSION: 1. There is a small hiatal hernia. 2. The barium pill became enlarged in the distal esophagus above the hiatal hernia and did not pass d uring the examination. 3. Mild dysmotility. 4. Gastroesophageal reflux was observed. ACT 112: Negative or not required by law. Electronically signed by: Rudolph Mendoza M.D. 11/10/2019 12:18 PM
--- NOTE | 2019-11-10 13:33 | Hospitalist Progress Note ---
Date of Service November 10, 2019 Assessment & Plan (1) NATTY (acute kidney injury): Admit med surg Secondary to dehydration from low po intake nausea and dry heaves over the last few days. Creat 2.25 on admission treated with fluids, Cr down to 1.6, electrolytes stable, making urine stop fluids, encourage more PO fluid intake, repeat labs in the morning (2) GERD (gastroesophageal reflux disease): likely has had this for some time, admits that she "eats Tums all the time" start on Protonix 40mg PO daily can still use Tums PRN barium swallow study shows esophageal spasms, reflux, hiatal hernia can likely refer to GI as outpatient, may need EGD if GERD symptoms persist despite PPI (3) Diabetes type 2, uncontrolled: new diagnosis, HbA1c is 7.3% life educator consulted to talk about dietary changes hold on starting Metformin for time being due to GI issues follow up with new PCP, appt made with Pantera Matthews (4) Abdominal pain: On CT - large amount of stool in the colon with stercoral colitis. No lesion identified but recommend follow up non emergent colonoscopy. Mild gallbladder distention. No pericholecystic infiltration. Secondary to constipation, patient has a poor diet, does not drink enough large, hard BM on 11/06 after enema placed on Miralax daily and Senna S daily continues to have 1-2 BM a day change the Miralax to PRN, make Senna S BID encouraged her to eat, stay well hydrated, increase activity problem is resolving (5) Constipation: as above now she is moving bowels on regular basis (6) Anxiety: Continue home vistaril, quetiapine, trazadone Patient is visibly anxious on exam and complaining of feeling so - ordered Ativan q6 PRN, she takes this at home (7) Depression: As above (8) Elevated alkaline phosphatase level: resolved (9) Hyperglycemia: Blood sugar 193 on admission, no history of DM A1c am = 7.3% patient has new diagnosis of DM type II refer to DM educator, will refer to PCP for management discussed starting Metformin on d/c however, with her current GI issues (pain, constipation) will defer any treatment to PCP (10) DVT prophylaxis: heparin subq (11) Peripheral neuropathy: vitamin B12 level normal likely due to DM start on Neurontin 100mg BID, could likely titrate up as outpatient Admission and Anticipated Discharge Date Admission Date: November 07, 2019 may be ready for discharge to home tomorrow Anticipated date of discharge: 11/11/19 Subjective patient feeling better, less abdominal pain, GERD symptoms better with protonix and Tums had video swallow test, showed reflux, esophageal spasm, some narrowing distally with hiatal hernia reviewed labs, Cr down to 1.6, CBC stable she is moving her bowels with the Senna S Review of Systems Review of Systems: All systems reviewed & are unremarkable except as noted in HPI & below Physical Exam Constitutional: WD/WN, vitals as above Eyes: PERRL, conjunctivae normal, anicteric sclerae ENMT: external ear and nose normal, oropharynx normal Neck: trachea midline, no thyromegaly Respiratory: normal respiratory effort, lungs clear to auscultation Cardiovascular: RRR, no murmur, no edema Gastrointestinal (Abdomen): normal bowel sounds, soft, nontender, no hepatosplenomegaly Musculoskeletal: no cyanosis or clubbing, extremities motor strength 5/5 Skin: no rashes, warm and dry Neurologic: patellar DTR's 2+ bilat, sensation intact and PERRL, EOMI, accommodation nl, no face palsy, no dysarthria Psychiatric: A+Ox3, euthymic affect Lymphatic: no cervical or axillary lymphadenopathy Results & Data Results & Data ([facility]) Vital Signs (Past 12 Hours) Vital Signs Temp Pulse Resp BP Pulse Ox 11/10/19 07:42 36.5 C 64 20 148/76 H 100 Laboratory Results Laboratory Results - last 24 hr 11/10/19 11/10/19 11/10/19 04:37 04:37 04:37 WBC 7.67 RBC 4.16 L Hgb 10.3 L Hct 32.9 L MCV 79.1 L MCH 24.8 L MCHC 31.3 L RDW Std Deviation 42.3 RDW Coeff of Chanelle 14.6 H Plt Count 315 MPV 9.3 Sodium 143 Potassium 4.3 Chloride 113 H Carbon Dioxide 25 Anion Gap 5.0 BUN 18 Creatinine 1.63 H Est Cr Clr Drug Dosing 38.8 Est GFR ( Amer) 37.9 Est GFR (Non-Af Amer) 32.7 BUN/Creatinine Ratio 10.9 Glucose 114 H Calcium 8.6 Vitamin B12 323 Medications Administered Current Inpatient Medications Acetaminophen (Tylenol) 500 mg PO Q8H PRN PRN Reason: pain/fever Stop: 12/07/19 16:06 Last Admin: 11/10/19 03:03 Dose: 500 mg Documented by: Bupropion HCl ([facility]-Sr) [facility] Stop: 12/08/19 08:59 Last Admin: 11/10/19 08:00 Dose: 150 mg Documented by: Calcium Carbonate (Tums) 500 mg PO Q6H PRN PRN Reason: Indigestion Stop: 12/09/19 15:39 Last Admin: 11/09/19 16:50 Dose: 500 mg Documented by: Guaifenesin (Mucinex) 600 mg PO Q12 PRN PRN Reason: Congestion Stop: 12/08/19 08:59 Last Admin: 11/09/19 20:34 Dose: 600 mg Documented by: Heparin Sodium (Porcine) (Heparin Sodium (Porcine)) 5,000 units SQ Q12 [facility] Stop: 12/07/19 20:59 Last Admin: 11/10/19 08:01 Dose: Not Given Documented by: Hydroxyzine HCl (Vistaril) 25 mg PO BID@0900,1400 [facility] Stop: 12/08/19 08:59 Hydroxyzine HCl (Vistaril) 50 mg PO [facility] Stop: 12/07/19 20:59 Lisinopril (Zestril) [facility] Stop: 12/10/19 08:59 Last Admin: 11/10/19 08:00 Dose: 20 mg Documented by: Loratadine (Claritin) [facility] Stop: 12/09/19 09:29 Last Admin: 11/10/19 08:00 Dose: 10 mg Documented by: Lorazepam (Ativan) 0.5 mg PO Q6 PRN PRN Reason: Anxiety Stop: 12/08/19 08:10 Last Admin: 11/10/19 09:30 Dose: 0.5 mg Documented by: Ondansetron HCl (Zofran) 4 mg IV Q6H PRN PRN Reason: Nausea Stop: 12/07/19 19:22 Last Admin: 11/10/19 08:06 Dose: 4 mg Documented by: Pantoprazole Sodium (Protonix) [facility] Stop: 12/09/19 15:44 Last Admin: 11/10/19 08:00 Dose: 40 mg Documented by: Phenazopyridine HCl (Pyridium) 100 mg PO TID PRN PRN Reason: Bladder pain Stop: 12/07/19 16:11 Polyethylene Glycol (Miralax Powder Packet) 17 gm PO DAILY PRN PRN Reason: Constipation Stop: 12/08/19 11:44 Last Admin: 11/10/19 08:06 Dose: 17 gm Documented by: Quetiapine Fumarate (Seroquel Xr) 300 mg PO HS [facility] Stop: 12/07/19 20:59 Last Admin: 11/09/19 20:34 Dose: 300 mg Documented by: Senna/Docusate Sodium (Senokot S) 1 tab PO BID [facility] Stop: 12/09/19 20:59 Last Admin: 11/10/19 08:01 Dose: 1 tab Documented by: Sodium Chloride (Hayes Nasal) 2 sprays NA Q2H PRN PRN Reason: Congestion Stop: 12/09/19 09:28 Trazodone HCl (Desyrel) 150 mg PO HS PRN PRN Reason: Sleep Stop: 12/07/19 16:06 Last Admin: 11/09/19 20:39 Dose: 150 mg Documented by: Venlafaxine HCl (Effexor Extended Release) 225 mg PO HS [facility] Stop: 12/07/19 20:59 Last Admin: 11/09/19 20:34 Dose: 225 mg Documented by: PG Care Time/CCT Total # of Minutes Spent Total Time Spent with Patient: Total time spent is greater than 50% in coordination of care (as documented) at patient's floor/unit and/or counseling patient: Coding Level of Care Code 55900 Subseq Hosp Care Lvl 3 Diagnoses NATTY (acute kidney injury) N17.9 GERD (gastroesophageal reflux disease) K21.9 Diabetes type 2, uncontrolled E11.65 Abdominal pain R10.10 Abdominal location: upper abdomen, unspecified Constipation K59.00 Constipation type: unspecified constipation type Anxiety F41.9 Depression F32.9 Elevated alkaline phosphatase level R74.8 Hyperglycemia R73.9 DVT prophylaxis Z29.9 Peripheral neuropathy G62.9 (1) Abdominal pain Abdominal location: upper abdomen, unspecified Qualified Code(s): R10.10 - Upper abdominal pain, unspecified (2) Constipation Constipation type: unspecified constipation type Qualified Code(s): K59.00 - Constipation, unspecified
[2019-11-10] MEDS: guaiFENesin 600 MG TABCR PO PRN (17:04)
[2019-11-10] MEDS: GABAPENTIN 100 MG CAP PO SCH (21:01)
[2019-11-10] MEDS: QUETIAPINE FUMARATE 150 MG TABCR PO SCH (21:01)
[2019-11-10] MEDS: VENLAFAXINE HCL XR 75 MG CAPXR PO SCH (21:02)
[2019-11-10] MEDS: TRAZODONE HCL 50 MG TAB PO PRN (21:52)
[2019-11-11] MEDS: LORazepam 0.5 MG TAB PO PRN ×4 (04:24→22:21)
[2019-11-11 08:45] LABS: BUN Creatinine Ratio 11.2 (10-20); Calcium 9.3 mg/dl (8.5-10.1); Creatinine Clr Calc Pharmacy 39.1 ml/min; Est GFR (African American) 38.2; Potassium 3.7 mmol/L (3.5-5.1)
[2019-11-11] MEDS: LORATADINE 10 MG TAB PO SCH (08:56)
[2019-11-11] MEDS: BuPROPion SR 150 MG TABCR PO SCH (08:57)
[2019-11-11] MEDS: HEPARIN SOD 5,000 UNIT/0.5 ML VIAL SQ SCH ×2 (08:57→21:24)
[2019-11-11] MEDS: DOCUSATE SODIUM/SENNA 50/8.6MG TAB PO SCH ×2 (08:57→21:15)
[2019-11-11] MEDS: lisinopriL 20 MG TAB PO SCH (08:57)
[2019-11-11] MEDS: GABAPENTIN 100 MG CAP PO SCH ×3 (08:57→21:14)
[2019-11-11] MEDS: PANTOprazole 40 MG TAB PO SCH (08:57)
[2019-11-11] MEDS: ACETAMINOPHEN 500 MG TAB PO PRN ×2 (09:01→16:03)
[2019-11-11] MEDS: ONDANSETRON INJ 2 MG/ML 2 ML VIAL IV PRN (09:02)
--- NOTE | 2019-11-11 11:38 | Hospitalist Progress Note ---
Date of Service November 11, 2019 Assessment & Plan (1) NATTY (acute kidney injury): Secondary to dehydration from low po intake nausea and dry heaves over the last few days. Creat 2.25 on admission treated with fluids, Cr down to 1.6, electrolytes stable, making urine Stopped fluids on 11/09. Cr stable today at 1.6 which is likely close to baseline. eGFR 33, so likely has CKD Stage III. - Monitor (2) GERD (gastroesophageal reflux disease): likely has had this for some time, admits that she "eats Tums all the time" start on Protonix 40mg PO daily can still use Tums PRN barium swallow study shows esophageal spasms, reflux, hiatal hernia can likely refer to GI as outpatient, may need EGD if GERD symptoms persist despite PPI - None noted this morning, so possibly helping. (3) Diabetes type 2, uncontrolled: new diagnosis, HbA1c is 7.3% primary special educator consulted to talk about dietary changes hold on starting Metformin for time being due to GI issues follow up with new PCP, appt made with Pantera Matthews (4) Abdominal pain: On CT - large amount of stool in the colon with stercoral colitis. No lesion identified but recommend follow up non emergent colonoscopy. Mild gallbladder distention. No pericholecystic infiltration. Secondary to constipation, patient has a poor diet, does not drink enough large, hard BM on 11/06 after enema placed on Miralax daily and Senna S daily continues to have 1-2 BM a day change the Miralax to PRN, make Senna S BID encouraged her to eat, stay well hydrated, increase activity problem is resolving -> Soft BM yesterday. Requested Mirlax this morning. (5) Constipation: as above now she is moving bowels on regular basis (6) Anxiety: Continue home vistaril, quetiapine, trazadone Patient is visibly anxious on exam and complaining of feeling so - ordered Ativan q6 PRN, she takes this at home. - Feeling better with Ativan, but still doesn't feel ready to go. (7) Depression: As above (8) Elevated alkaline phosphatase level: resolved (9) Hyperglycemia: Blood sugar 193 on admission, no history of DM A1c am = 7.3% patient has new diagnosis of DM type II refer to DM educator, will refer to PCP for management discussed starting Metformin on d/c however, with her current GI issues (pain, constipation) will defer any treatment to PCP (10) DVT prophylaxis: heparin subq (11) Peripheral neuropathy: vitamin B12 level normal likely due to DM start on Neurontin 100mg BID which she reported helped. Will add a third dose (i.e. TID which she feels like she needs.) Admission and Anticipated Discharge Date Admission Date: November 07, 2019 Subjective Still has a headache and some numbness in the legs. Just doesn't feel well, though overall, she cannot pinpoint exact symptoms. Reports no fevers/chills, chest pain, shortness of breath, abdominal pain, nausea, or vomiting. Physical Exam Constitutional: WD/WN, vitals as above Eyes: EOM intact bilaterally; no conjunctival abnormality ENMT: external ear and nose normal, oropharynx normal Neck: trachea midline, no thyromegaly normal visual inspection Respiratory: normal respiratory effort, lungs clear to auscultation no respiratory distress Cardiovascular: RRR, no murmur, no edema Gastrointestinal (Abdomen): Inspection/Auscultation: abdomen normal to inspection; abdomen not distended Musculoskeletal: no cyanosis or clubbing, extremities motor strength 5/5 Skin: no rashes, warm and dry Neurologic: moves all extremities and awake Psychiatric: Orientation: alert, oriented to person and cooperative Results & Data Results & Data ([facility]) Vital Signs (Past 12 Hours) Vital Signs Temp Pulse Resp BP Pulse Ox 11/11/19 07:00 37.0 C 73 18 161/76 H 94 PG Care Time/CCT Total # of Minutes Spent Total Time Spent with Patient: Total time spent is greater than 50% in coordination of care (as documented) at patient's floor/unit and/or counseling patient: Coding Level of Care Code 07998 Subseq Hosp Care Lvl 2 Diagnoses NATTY (acute kidney injury) N17.9 GERD (gastroesophageal reflux disease) K21.9 Diabetes type 2, uncontrolled E11.65 Abdominal pain R10.10 Abdominal location: upper abdomen, unspecified Constipation K59.00 Constipation type: unspecified constipation type Anxiety F41.9 Depression F32.9 Elevated alkaline phosphatase level R74.8 Hyperglycemia R73.9 DVT prophylaxis Z29.9 Peripheral neuropathy G62.9 (1) Abdominal pain Abdominal location: upper abdomen, unspecified Qualified Code(s): R10.10 - Upper abdominal pain, unspecified (2) Constipation Constipation type: unspecified constipation type Qualified Code(s): K59.00 - Constipation, unspecified
[2019-11-11] MEDS: VENLAFAXINE HCL XR 75 MG CAPXR PO SCH (21:14)
[2019-11-11] MEDS: QUETIAPINE FUMARATE 150 MG TABCR PO SCH (21:15)
[2019-11-11] MEDS: TRAZODONE HCL 50 MG TAB PO PRN (21:18)
[2019-11-12] MEDS: LORazepam 0.5 MG TAB PO PRN ×2 (06:15→13:24)
[2019-11-12 06:19] LABS: Hematocrit (blood only) 38.6 % (37-47); Hemoglobin 12.8 g/dL (12.0-16.0); Mean Corpuscular Hemoglobin 26.4 pg (25-34); Mean Corpuscular Hgb Conc 33.2 g/dL (32-36); Mean Corpuscular Volume 79.6 fL (80-100); Mean Platelet Volume 8.8 fL (7.4-10.4); Platelet Count 390 K/uL (130-400); RDW Coefficient of Variation 14.6 % (11.5-14.5); RDW Standard Deviation 42.3 fL (36.4-46.3); Red Blood Count 4.85 M/uL (4.2-5.4); White Blood Count 11.06 K/uL (4.8-10.8)
[2019-11-12 07:03] LABS: BUN Creatinine Ratio 12.9 (10-20); Calcium 9.5 mg/dl (8.5-10.1); Creatinine Clr Calc Pharmacy 40.1 ml/min; Est GFR (African American) 39.4; Potassium 4.1 mmol/L (3.5-5.1)
[2019-11-12] MEDS: BuPROPion SR 150 MG TABCR PO SCH (08:24)
[2019-11-12] MEDS: HEPARIN SOD 5,000 UNIT/0.5 ML VIAL SQ SCH (08:24)
[2019-11-12] MEDS: DOCUSATE SODIUM/SENNA 50/8.6MG TAB PO SCH (08:24)
[2019-11-12] MEDS: LORATADINE 10 MG TAB PO SCH (08:24)
[2019-11-12] MEDS: GABAPENTIN 100 MG CAP PO SCH ×2 (08:24→13:24)
[2019-11-12] MEDS: lisinopriL 20 MG TAB PO SCH (08:25)
[2019-11-12] MEDS: PANTOprazole 40 MG TAB PO SCH (08:25)
[2019-11-12] MEDS: ACETAMINOPHEN 500 MG TAB PO PRN (08:26)
--- NOTE | 2019-11-12 11:40 | Discharge Summary ---
Date of Service November 12, 2019 Admission HPI Per Admitting Provider Ms. Suarez presents for abdominal pain with dry heaving x 4-5 days. Pain is central to left lower abdomen. She has not had a bowel movement in at least two days She also has had urinary hesitancy. She denies fevers or aches, cough, sob, chest pain, palpitations, or skin rash. She also has fairly severe anxiety. She has no sick contacts. Her partner and her live alone and have not seen anyone else in 2 weeks since her last trip to the grocery store. 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 Pmhx: anxiety Social: lives with partner, never smoker, no alcohol, retired Family: No significant family medical history Principal Diagnosis Acute kidney injury Discharge Exam Constitutional WD/WN, vitals as above Eyes PERRL, conjunctivae normal, anicteric sclerae ENMT external ear and nose normal, oropharynx normal Neck trachea midline, no thyromegaly Respiratory normal respiratory effort, lungs clear to auscultation Cardiovascular RRR, no murmur, no edema Gastrointestinal (Abdomen) normal bowel sounds, soft, nontender, no hepatosplenomegaly Musculoskeletal no cyanosis or clubbing, extremities motor strength 5/5 Skin no rashes, warm and dry Neurologic patellar DTR's 2+ bilat, sensation intact and PERRL, EOMI, accommodation nl, no face palsy, no dysarthria Psychiatric A+Ox3, euthymic affect Lymphatic no cervical or axillary lymphadenopathy Discharge Data Allergies Allergy/AdvReac Type Severity Reaction Status Date / Time No Known Allergies Allergy Unverified 11/07/19 13:11 Consultations 11/07/19 14:05 ED Decision to Admit Stat 11/07/19 16:07 Consult Case Management - Discharge Planning Routine Ordered Studies 11/07/19 12:26 CT abd pelvis wo con Stat 11/10/19 11:30 FL barium swallow Routine Hospital Course (1) NATTY (acute kidney injury): Secondary to dehydration from low po intake nausea and dry heaves over the last few days. Creat 2.25 on admission treated with fluids, Cr down to 1.5, electrolytes stable, making urine Stopped fluids on 11/09. Cr stable which is likely close to baseline. eGFR 33, so likely has CKD Stage III. should monitor BMP as outpatient with her diagnosis of DM type II (2) GERD (gastroesophageal reflux disease): likely has had this for some time, admits that she "eats Tums all the time" start on Protonix 40mg PO daily can still use Tums PRN barium swallow study shows esophageal spasms, reflux, hiatal hernia can likely refer to GI as outpatient, may need EGD if GERD symptoms persist despite PPI symptoms improved on discharge again, consider referral to GI as outpatient, especially if she gets colonoscopy for screening, constipation (3) Diabetes type 2, uncontrolled: new diagnosis, HbA1c is 7.3% childbirth educator consulted to talk about dietary changes hold on starting Metformin for time being due to GI issues follow up with new PCP, appt made with Pantera Matthews (4) Abdominal pain: On CT - large amount of stool in the colon with stercoral colitis. No lesion identified but recommend follow up non emergent colonoscopy. Mild gallbladder distention. No pericholecystic infiltration. Secondary to constipation, patient has a poor diet, does not drink enough large, hard BM on 11/06 after enema placed on Miralax daily and Senna S daily continues to have 1-2 BM a day change the Miralax to PRN, make Senna S BID encouraged her to eat, stay well hydrated, increase activity problem is resolving -> will continue on Senna S BID on discharge, can use Miralax PRN instructed her to stay well hydrated, use fiber supplement should be referred to GI for routine screening colonoscopy since she has never had one (5) Constipation: as above now she is moving bowels on regular basis (6) Anxiety: Continue home vistaril, quetiapine, trazadone Patient is visibly anxious on exam and complaining of feeling so - ordered Ativan q6 PRN, she takes this at home. - Feeling better with Ativan prescription provided for two weeks, she says she has appt with her mental a [place] healthcare provider at that time (7) Depression: As above (8) Elevated alkaline phosphatase level: resolved (9) Hyperglycemia: Blood sugar 193 on admission, no history of DM A1c am = 7.3% patient has new diagnosis of DM type II refer to DM educator, will refer to PCP for management discussed starting Metformin on d/c however, with her current GI issues (pain, constipation) will defer any treatment to PCP started on Lisinopril for HTN, also to provide renal protection (10) Peripheral neuropathy: vitamin B12 level normal likely due to DM start on Neurontin 100mg BID which she reported helped. increase to 200mg BID on discharge, defer to PCP for any additional titration (11) Hypertension: another new diagnosis, BP quite elevated here in the 170-180's at times improved with Lisinopril, increased dose to 20mg may require higher dosing up to 40mg, check BP in the office low sodium diet ordered (12) CKD stage 3 due to type 2 diabetes mellitus: Cr down to 1.5, likely her baseline, has not had labs check in years (13) DVT prophylaxis: heparin subq Total Time Total Time Spent Total Time Spent (In Minutes): 36 minutes Total Time Includes: Examination of the Patient, Discharge Planning and Medication Reconciliation Discharge Plan Discharge Items Patient Disposition: Home - Self-Care Reason For Visit: NATTY Discharge Diagnosis: Acute kidney injury Constipation DM type II Peripheral neuropathy Hypertension Gastroesophageal reflux Condition on Discharge: Good Goals: follow up with new PCP Pantera Matthews follow diabetic diet continue to use stool softener to keep bowels moving Activity: Resume your previous activity Weightbearing: Full weightbearing Non-emergency contact: Primary Care Provider Call non-emergency contact if: you have any medication questions and your symptoms worsen Follow-up/Referrals: Pantera Matthews III, CRNP [Primary Care Provider] - 11/15/19 9:00 am (Please, follow up at [facility] Office with Pantera VALDEZ on FridayNovember 14 at 9:00 am. *He will be your new primary care provider. The office is located at [facility] in [place]. [address] is across the [address] from the entrance to [employer]. If you have any questions, call the office at [phone].) Diet: Carb Consistent or DM2 and Low Sodium (2gm) Addtl Attending Provider Instructions: Medications: - Aspirin: dose reduced from 325mg to 81mg daily, please buy over the counter - Gabapentin: new medication, prescribed for neuropathy and pain, dose has been tapered up to 200mg twice a day, continue this dose until you see PCP on 11/14 - Lisinopril: 20mg daily, new medication for blood pressure, working well - Protonix: 40mg daily, new medication for reflux, take every day to help reduce symptoms - Loratadine: take 10mg every morning for allergic rhinitis - Lorazepam: 0.5mg every 6 hours as needed for anxiety, see below - Senna S: stool softener, take one tablet twice a day with adequate hydration to keep bowels moving Abdominal pain, constipation on CT of the abdomen there was a large amount of stool in the colon moved bowels multiple times with enema, Miralax and stool softeners recommend that you use Senna S twice a day for time being, if stools remain loose then stop the stool softener make sure you are drinking plenty of fluids, stay well hydrated to prevent constipation use a fiber supplement such as Metamucil or Benefiber to make sure you have enough fiber in your diet at some point, you should have routine screening colonoscopy with GI based on your age, this can be arranged by PCP DM type II, hypertension, neuropathy new diagnosis of DM type II, HbA1c 7.3% dietary and lifestyle changes will be essential, holding off on starting Metformin due to potential GI side effects will defer medication to PCP Lisinopril started for better blood pressure control, increased to 20mg, this medication is also protective for kidneys with diabetes responding well to Gabapentin for numbness and pain in feet, continue on 200mg twice a day GERD: take pantoprazole 40mg daily, you can use Tums as needed but the pa ntoprazole should cut back on the need for Tums simple measures are to avoid trigger foods, avoid eating late at night again, if you are going to be referred to GI for colonoscopy, may need to consider EGD as well since you have long standing GERD that has been untreated, defer to PCP Anxiety: you are taking a lot of medication for anxiety, please follow up with psychiatry in two weeks prescribed you lorazepam 0.5mg every 6 hours for two weeks until you can see your normally prescribing provider DO NOT TAKE MORE THAN PRESCRIBED, and only take it if you absolutely need it, use your other scheduled medications such as Buproprion, hydroxyzine, trazodone You have several new medical diagnoses that will need close follow up and management, please keep appointment with Pantera Matthews on 11/15/19 Pending Studies at Discharge: No Stand-Alone Forms: [facility] Sm[facility]ess[facility] Medications and DC Order Prescriptions: New lisinopril 20 mg Tablet 20 mg PO QAM 30 Days Qty: 30 RF: 3 sennosides-docusate sodium [Senokot-S] 8.6-50 mg Tablet 1 tab PO BID 30 Days Qty: 60 RF: 0 lorazepam 0.5 mg Tablet 0.5 mg PO Q6 PRN (Reason: anxiety) 14 Days Qty: 56 RF: 0 pantoprazole 40 mg Tablet,Delayed Release (Dr/Ec) 40 mg PO QAM 30 Days Qty: 30 RF: 3 gabapentin 100 mg Capsule 200 mg PO BID 30 Days Qty: 120 RF: 0 loratadine [Allergy Relief (loratadine)] 10 mg Tablet 10 mg PO QAM 30 Days Qty: 30 RF: 1 aspirin [Aspirin Low Dose] 81 mg tablet,delayed release (DR/EC) 81 mg PO DAILY Qty: 30 RF: 3 Continued acetaminophen [Tylenol Extra Strength] 500 mg Tablet 500 mg PO Q8H PRN (Reason: pain/fever) RF: 0 quetiapine 300 mg Tablet Extended Release 24 Hr 300 mg PO HS RF: 0 trazodone 150 mg Tablet 150 mg PO HS PRN (Reason: Sleep) RF: 0 bupropion HCl 150 mg Tablet Sustained-Release 12 Hr 150 mg PO QAM RF: 0 hydroxyzine pamoate 25 mg Capsule 25 mg PO BID RF: 0 hydroxyzine pamoate 50 mg Capsule 50 mg PO HS RF: 0 Discontinued aspirin 325 mg Tablet 325 mg PO DAILY PRN (Reason: Pain) RF: 0 Discharge Orders: Discharge Order (Routine); Ordered 11/12/19 Ordered By: Fredy Jaramillo/Other Patient Handouts: Diabetes Healthy Meals, Diabetes Exercise Benefits, A1C Admission Data Admit Date/Time: 11/07/19 14:56 Attending Provider: Fredy Serrano Admit Provider: Pedro Boo Primary Care Provider: Pantera Matthews III Other Providers: Luca Mccain Other Interventions: Discharge Summary Assessment (RN) Last Done: 11/12/19 13:55 DC Date/Time DO NOT enter until pt leaves facility: 11/12/19 14:42 Coding Level of Care Code D/C Day Management >30 mins Diagnoses NATTY (acute kidney injury) N17.9 GERD (gastroesophageal reflux disease) K21.9 Diabetes type 2, uncontrolled E11.65 Abdominal pain R10.10 Abdominal location: upper abdomen, unspecified Constipation K59.00 Constipation type: unspecified constipation type Anxiety F41.9 Depression F32.9 Elevated alkaline phosphatase level R74.8 Hyperglycemia R73.9 Peripheral neuropathy G62.9 Hypertension I10 CKD stage 3 due to type 2 diabetes mellitus E11.22; N18.3 DVT prophylaxis Z29.9
== END 2019-11-12 14:42 | disposition home or self-care (01) | DRG 392 ==
LOC: ED 12:01 → 2W 14:56 → SUATTDRO 14:56 → 2W 15:28

== ENCOUNTER 2021-02-15 23:45 | Observation (INO) ==
[2021-02-16] MEDS ORDERED: SODIUM CHLORIDE 0.9% 1000ML 1,000 ML IV SCH (01:15)
[2021-02-16 01:26] LABS: Basophils # (auto) 0.03 K/uL (0-0.2); Basophils % (auto) 0.3 %; Eosinophils # (auto) 0.13 K/uL (0-0.5); Eosinophils % (auto) 1.5 %; Hematocrit (blood only) 29.7 % (37-47); Hemoglobin 9.4 g/dL (12.0-16.0); Immature Granulocytes # (auto) 0.01 K/uL (0.00-0.02); Immature Granulocytes % (auto) 0.1 %; Lymphocytes # (auto) 0.98 K/uL (1.2-3.4); Lymphocytes % (auto) 11.1 %; Mean Corpuscular Hemoglobin 24.6 pg (25-34); Mean Corpuscular Hgb Conc 31.6 g/dL (32-36); Mean Corpuscular Volume 77.7 fL (80-100); Monocytes # (auto) 0.74 K/uL (0.11-0.59); Monocytes % (auto) 8.4 %; Neutrophils # (auto) 6.95 K/uL (1.4-6.5); Neutrophils % (auto) 78.6 %; Platelet Count 347 K/uL (130-400); RDW Standard Deviation 48.4 fL (36.4-46.3); Red Blood Count 3.82 M/uL (4.2-5.4); White Blood Count 8.84 K/uL (4.8-10.8)
[2021-02-16] MEDS ORDERED: GABAPENTIN 300 MG CAP PO STA ×2 (01:31→01:33)
[2021-02-16] MEDS ORDERED: LORazepam 1 MG TAB SL STA (01:32)
[2021-02-16 01:35] LABS: Appearance Urine Clear (Clear); Bacteria Urine Automated Negative (Negative); Bilirubin Urine Negative (Negative); Blood Urine Trace (Negative); Cast Urine Automated 0 /lpf (0-5); Color Urine Yellow; Glucose Urine UA Negative (Negative); Ketones Urine Negative (Negative); Leukocyte Esterase Urine Negative (Negative); Nitrite Urine Negative (Negative); Protein Urine Negative (Negative); RBC Urine Automated 0-4 /hpf (0-4); Specific Gravity Urine 1.005 (1.000-1.030); Urobilinogen Urine Negative (Negative); pH Urine 5.5 (4.5-7.5)
[2021-02-16 01:46] LABS: Albumin Globulin Ratio 0.9 (0.9-2); Albumin Level 3.3 gm/dl (3.4-5.0); BUN Creatinine Ratio 15.4 (10-20); Bilirubin,Total 0.2 mg/dl (0.2-1); Calcium 9.9 mg/dl (8.5-10.1); Creatinine Clr Calc Pharmacy 15.5 ml/min; Est GFR (African American) 15.8 ml/min; Est GFR (Non-African American) 13.7 ml/min; Globulin 3.5 gm/dl (2.5-4.0); Potassium 5.8 mmol/L (3.5-5.1); Total Protein 6.8 gm/dl (6.4-8.2)
[2021-02-16 02:10] LABS: Amphetamines+Metham, Urine Neg (Neg); Barbiturates, Urine Neg (Neg); Benzodiazepine, Urine Neg (Neg); Cocaine, Urine Neg (Neg); MDMA (Ecstacy), Urine Neg (Neg); Methadone, Urine Neg (Neg); Opiate, Urine Pos (Neg); Phencyclidine, Urine Neg (Neg)
[2021-02-16 02:23] LABS: Acetaminophen < 2 ug/ml (10-30); Salicylate < 1.7 mg/dl (2.8-20)
[2021-02-16] MEDS ORDERED: LORazepam 1 MG/2 ML VIAL IV STA (02:44)
[2021-02-16] MEDS ORDERED: HALOPERIDOL LACTATE 5 MG/ML 1 ML VIAL IV STA ×2 (02:44→03:26)
[2021-02-16] MEDS ORDERED: fentaNYL citrate 100 MCG/2 ML VIAL IV STA (03:10)
[2021-02-16] MEDS ORDERED: LORazepam 2 MG/4 ML VIAL IV STA (03:26)
[2021-02-16] MEDS ORDERED: SODIUM CHLORIDE 0.9% 1000ML 1,000 ML IV ONE (04:20)
[2021-02-16] MEDS ORDERED: PHARMACIST DISCHARGE MED REC CONSULT PRN (05:17)
--- NOTE | 2021-02-16 05:21 | History & Physical Report ---
Date of Service February 16, 2021 Assessment & Plan (1) Stroke: Plan: CT scan of head shows a subacute 3.2 x 2 cm left occipital lobe infarct, a 3 cm old left parietal lobe infarct, and a 5 mm old left caudate head infarct. The patient will be admitted to telemetry for serial cardiac enzymes, serial EKG's, cardiac rhythm monitoring and a 2-D echocardiogram with Dopplers. Will place on stroke without TPA order set. No CTA head and neck ordered due to NATTY on CKD. Will place order for MRI brain for the morning Examination in the ED clouded by use of 's opiates, presumptive element of uremic encephalopathy, and sedation required in ED to get testing performed. Consult neurology, PT/OT/speech (2) Narcotic overdose: Plan: The patient did receive Narcan x1 in route to the ED by EMS, with some reported improvement in responsiveness Patient is not on opiates that are prescribed to her, and was evidently using her 's opiates. Likely is contributing to alteration in mental status due to direct effect, but also may be encephalopathy associated with urinary retention and uremia Will not reverse with any further Narcan, unless patient has respiratory difficulties, and allow patient to be sedated overnight (3) Change in mental status: Plan: Likely multifactorial at this time: Narcotic overdose, uremic encephalopathy associated with urinary retention, subacute infarct. (4) Acute kidney injury superimposed on chronic kidney disease: Plan: NATTY on CKD/CKD stage III due to diabetes mellitus- Creatinine 3.34 upon admission, with base range 1.44-2.25 Receiving 2 L normal saline bolus in the ED followed by normal saline at 100 mils per hour Repeat laboratories in a.m. (5) CKD stage 3 due to type 2 diabetes mellitus: Plan: See above (6) Hypertension: Plan: Holding all oral medications (7) Diabetes type 2, uncontrolled: Plan: Placed on Accu-Cheks before meals at bedtime/every 6 hours with NovoLog coverage per scale Check hemoglobin A1c (8) Peripheral neuropathy: Plan: Holding medications while n.p.o. (9) GERD (gastroesophageal reflux disease): Plan: Hold oral pantoprazole. Placed on famotidine 20 mg IV every 12 hours (10) Anxiety: Plan: Anxiety and depression- Holding medications while n.p.o. (11) Depression: Plan: Holding medications while n.p.o. (12) Acute urinary retention: Plan: Acute urinary retention/hyperkalemia due to diminished renal excretion- Potassium 5.8 upon admission. Expect improved with hydration as noted above. Repeat laboratories in a.m. Continue Lizama catheter that was placed in the ED (13) Hyperkalemia, diminished renal excretion: Plan: See above History of Present Illness Chief Complaint: The patient presents to the emergency department with altered mental state, multiple falls over the past couple days, uncontrollable tremors, confusion and agitation, unable to stay still, thought to have taken some of her husbands oxycodone, and had partially improved mentation en route on the ambulance with administration of intranasal Narcan Primary Care Provider: Pantera Matthews III, CRNP The patient is a 65-year-old female with a past medical history including CKD stage III, diabetes mellitus uncontrolled, hypertension, peripheral neuropathy, anxiety with depression and GERD. She presents as noted above. She is not able to contribute to her HPI or review of systems at the time of my assessment. She was given the following medications by the emergency department: NSS 1 L, gabapentin 300 mg p.o., lorazepam 2 mg sublingual, haloperidol 2.5 mg IV, lorazepam 1 mg IV, fentanyl 50 mcg IV, lorazepam 2 mg IV and then haloperidol 5 mg IV. The patient continued to be in continual motion, unable to lay still and appeared to be in discomfort. I then asked that a Lizama cath to be placed. The patient immediately put out 1 L of urine in 10 minutes, and continue to empty urine beyond that. She was then no longer restless, no longer in pain, and was resting comfortably. Urine drug screen in the emergency department was positive for opiates, with subtype pending. Abnormal laboratories: Hemoglobin 9.4, potassium 5.8, creatinine 3.34, BUN 52, glucose 131. The patient was COVID-19 negative Allergies Allergy/AdvReac Type Severity Reaction Status Date / Time No Known Allergies Allergy Unverified 12/24/20 14:32 Home Medications Medication Instructions Recorded Confirmed Type bupropion HCl 150 mg tablet,12 hr 150 mg PO QAM 08/28/19 02/16/21 History sustained-release hydroxyzine pamoate 25 mg capsule 25 mg PO BID 08/28/19 02/16/21 History hydroxyzine pamoate 50 mg capsule 50 mg PO HS 08/28/19 02/16/21 History quetiapine 300 mg tablet,extended 300 mg PO HS 08/28/19 02/16/21 History release 24 hr trazodone 150 mg tablet 150 mg PO HS 08/28/19 02/16/21 History venlafaxine 150 mg 150 mg PO QAM cap 11/19/19 02/16/21 History capsule,extended release 24 hr venlafaxine 75 mg capsule,extended 75 mg PO QAM cap 11/19/19 02/16/21 History release 24 hr lisinopril 20 mg tablet 20 mg PO QAM #90 tab 06/01/20 02/16/21 Rx pantoprazole 40 mg tablet,delayed 40 mg PO QAM #90 tab 06/01/20 02/16/21 Rx release sennosides 8.6 mg-docusate sodium 1 tab PO BID #180 tab 12/22/20 02/16/21 Rx 50 mg tablet (Senokot-S) loratadine 10 mg tablet (Allergy 10 mg PO QAM 12/23/20 02/16/21 History Relief (loratadine)) ondansetron 4 mg disintegrating 4 mg PO Q6H PRN #12 tab 12/23/20 02/16/21 Rx tablet aspirin 81 mg tablet,delayed 81 mg PO QAM 12/24/20 02/16/21 History release (Aspirin Low Dose) polyethylene glycol 3350 17 17 g PO DAILY #510 g 12/24/20 02/16/21 Rx gram/dose oral powder (Miralax) gabapentin 100 mg capsule See Rx Instructions .ROUTE 02/09/21 02/16/21 Rx .COMPLEX #450 cap Past Med/Surg History Medical History (Updated 02/16/21 @ 05:05 by Silas Bell MD) NATTY (acute kidney injury) Depression Stroke Surgical History H/O tubal ligation No pertinent past surgical history Family History Denies family history of Ovarian cancer Prostate cancer Myocardial infarction Breast cancer Colorectal cancer Colonic polyp Social History Smoking Status: Never smoker Second Hand Exposure: No; Hx Alcohol Use: No Hx Substance Use: No Preferred Language: Trinidadian Communication Ability: Effective Visual Impairment: No Limitations Hearing Ability: Normal 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 Well developed and well nourished, normocephalic and atraumatic, lying in bed and in mild to moderate acute distress. HEENT--PERRL, EOMI, mucous membranes and oropharynx dry. Neck--supple. No JVD. No bruits. Thyroid normal, trachea midline, no adenopathy. Heart--normal S1 and S2. No murmurs, rubs or gallops. Lungs--clear bilaterally, no respiratory distress, no accessory muscle use. Abdomen--normal bowel sounds and soft. Nontender. Bladder easily palpable and distended Extremities--no cyanosis or clubbing. No edema. Dermatologic--skin is dry. A few scattered ecchymoses Neurologic--cranial nerves II through XII grossly intact. Rheumatologic--limited exam Psychiatric--sedated. Results & Data Results & Data ([facility]) Vital Signs (Past 12 Hours) Vital Signs Temp Pulse Pulse Resp BP BP Pulse Ox 02/16/21 03:52 99 H 24 178/80 H 96 02/16/21 01:45 103 H 26 H 157/108 H 98 02/16/21 01:26 100 02/16/21 01:10 83 16 132/90 99 02/15/21 23:59 97.9 F 100 H 16 111/58 L 96 Laboratory Results Laboratory Results WBC 8.84 K/uL (4.8-10.8) 02/16/21 01:10 RBC 3.82 M/uL (4.2-5.4) L 02/16/21 01:10 Hgb 9.4 g/dL (12.0-16.0) L 02/16/21 01:10 Hct 29.7 % (37-47) L 02/16/21 01:10 MCV 77.7 fL (80-100) L 02/16/21 01:10 MCH 24.6 pg (25-34) L 02/16/21 01:10 MCHC 31.6 g/dL (32-36) L 02/16/21 01:10 RDW Std Deviation 48.4 fL (36.4-46.3) H 02/16/21 01:10 RDW Coeff of Chanelle 17.0 % (11.5-14.5) H 02/16/21 01:10 Plt Count 347 K/uL (130-400) 02/16/21 01:10 MPV 10.0 fL (7.4-10.4) 02/16/21 01:10 Immature Gran % (Auto) 0.1 % 02/16/21 01:10 Neut % (Auto) 78.6 % 02/16/21 01:10 Lymph % (Auto) 11.1 % 02/16/21 01:10 [place]aves % (Auto) 8.4 % 02/16/21 01:10 Eos % (Auto) 1.5 % 02/16/21 01:10 Baso % (Auto) 0.3 % 02/16/21 01:10 Neut # (Auto) 6.95 K/uL (1.4-6.5) H 02/16/21 01:10 Lymph # (Auto) 0.98 K/uL (1.2-3.4) L 02/16/21 01:10 Chaves # (Auto) 0.74 K/uL (0.11-0.59) H 02/16/21 01:10 Eos # (Auto) 0.13 K/uL (0-0.5) 02/16/21 01:10 Baso # (Auto) 0.03 K/uL (0-0.2) 02/16/21 01:10 Immature Gran # (Auto) 0.01 K/uL (0.00-0.02) 02/16/21 01:10 Sodium 136 mmol/L (136-145) 02/16/21 01:10 Potassium 5.8 mmol/L (3.5-5.1) H 02/16/21 01:10 Chloride 109 mmol/L (98-107) H 02/16/21 01:10 Carbon Dioxide 20 mmol/L (21-32) L 02/16/21 01:10 Anion Gap 7.0 (3-11) 02/16/21 01:10 BUN 52 mg/dl (7-18) H 02/16/21 01:10 Creatinine 3.34 mg/dl (0.6-1.2) H 02/16/21 01:10 Est Cr Clr Drug Dosing 15.5 ml/min 02/16/21 01:10 Est GFR ( Amer) 15.8 ml/min 02/16/21 01:10 Est GFR (Non-Af Amer) 13.7 ml/min 02/16/21 01:10 BUN/Creatinine Ratio 15.4 (10-20) 02/16/21 01:10 Glucose 131 mg/dl (70-99) H 02/16/21 01:10 Calcium 9.9 mg/dl (8.5-10.1) 02/16/21 01:10 Total Bilirubin 0.2 mg/dl (0.2-1) 02/16/21 01:10 AST 33 U/L (15-37) 02/16/21 01:10 ALT 22 U/L (12-78) 02/16/21 01:10 Alkaline Phosphatase 79 U/L (45-117) 02/16/21 01:10 Total Protein 6.8 gm/dl (6.4-8.2) 02/16/21 01:10 Albumin 3.3 gm/dl (3.4-5.0) L 02/16/21 01:10 Globulin 3.5 gm/dl (2.5-4.0) 02/16/21 01:10 Albumin/Globulin Ratio 0.9 (0.9-2) 02/16/21 01:10 Specimen Hemolysis 02/16/21 01:10 Urine Color Yellow 02/16/21 01:22 Urine Appearance Clear (Clear) 02/16/21 01:22 Urine pH 5.5 (4.5-7.5) 02/16/21 01:22 Ur Specific [place] 1.005 (1.000-1.030) 02/16/21 01:22 Urine Protein Negative (Negative) 02/16/21 01:22 Urine Glucose (UA) Negative (Negative) 08/20/21 01:22 Urine Ketones Negative (Negative) 02/16/21 01:22 Urine Blood Trace (Negative) H 02/16/21 01:22 Urine Nitrite Negative (Negative) 02/16/21 01:22 Urine Bilirubin Negative (Negative) 02/16/21 01:22 Urine Urobilinogen Negative (Negative) 02/16/21 01:22 Ur Leukocyte Esterase Negative (Negative) 02/16/21 01:22 Urine WBC (Auto) 1-5 /hpf (0-5) 02/16/21 01:22 Urine RBC (Auto) 0-4 /hpf (0-4) 02/16/21 01:22 U Hyaline Cast (Auto) 0 /lpf (0-5) 02/16/21 01:22 U Epithel Cells (Auto) 5-10 /lpf (0-5) H 02/16/21 01:22 Urine Bacteria (Auto) Negative (Negative) 02/16/21 01:22 Salicylates < 1.7 mg/dl (2.8-20) L 02/16/21 01:28 Urine Opiates Screen Pos (Neg) H 02/16/21 01:22 Ur Methadone, Qual Neg (Neg) 02/16/21 01:22 Acetaminophen < 2 ug/ml (10-30) L 02/16/21 01:28 Urine Barbiturates Neg (Neg) 02/16/21 01:22 Ur Phencyclidine (PCP) Neg (Neg) 02/16/21 01:22 U Amphetamin/Meth Scrn Neg (Neg) 02/16/21 01:22 MDMA (Ecstasy) Screen Neg (Neg) 02/16/21 01:22 U Benzodiazepines Scrn Neg (Neg) 02/16/21 01:22 Ur Cocaine Metabolite Neg (Neg) 02/16/21 01:22 U Marijuana (THC) Screen Neg (Neg) 02/16/21 01:22 Ethyl Alcohol mg/dL < 3.0 mg/dl (0-3) 02/16/21 01:28 COVID-19 Eval Order Covid19 at [facility] 02/16/21 01:46 SARS-CoV-2 (PCR) NEGATIVE (Negative) 02/16/21 01:46 Diagnostic Findings [facility] Patient: IDALMIS XIAO (Female) : 53 Status: ER Date: 02/16/21 03:55 Room #: History: AMS, MULTIPLE FALLS THE PAST COUPLE DAYS PER UNCONTROLLABLE TREMORS Slices: 146 Priors: Tech: Yassine Medina @ [phone] Exams: CT HEAD Contrast: Accession Numbers: [id number] Referring Physician: REFERRED SELF Preliminary Findings Only See Final Report For Complete Findings CT HEAD: Comparison to January 25, 2012. There is an approximately 3.2 x 2 cm oval area of intermediate decreased density in the left occipital pole consistent with subacute infarct. There is a 3 cm old infarct in the left parietal lobe which was acute on the comparison study. There is an old lacunar infarct in the left caudate head measuring 5 mm. The remainder of the brain is unremarkable. No acute large vessel infarct or intracranial hemorrhage is seen. The paranasal sinuses and mastoid air cells are normal. No skull fracture or scalp hematoma is seen. Radiologist: Jose Manuel Murray MD Study ready at 04:02 and initial results transmitted at 04:44 *This report constitutes a preliminary interpretation only. Non-acute findings felt to be unrelated to the clinical presentation may not be discussed in this report. The study will be interpreted and a final report will be generated by the local Radiologist the following shift. To reach the hospital radiology department call [phone]. If a discrepancy is found between the preliminary and final interpretations of this study, please notify us via our Client Portal at [email or web address] under QA Exams.You can also fax this report with a description of the discrepancy, or include the final report, to our daytime fax number [phone].If faxing, please indicate the severity of discrepancy using one of the following categories: [ ] 1 - Agree/Informational [ ] 2 - Unlikely to Affect Management [ ] 3 - Possible Eventual Change of Management [ ] 4 - Probable Immediate Change of Management For all other patient related information, please fax us at [phone]. [id number] Code Status & VTE Plan Code Status Full code VTE Prophylaxis Plan VTE Prophylaxis will be ordered: Yes PG Care Time/CCT Total # of Minutes Spent Total Time Spent with Patient: Total time spent is greater than 50% in coordi nation of care (as documented) at patient's floor/unit and/or counseling patient: Coding Level of Care Code 99885 Initial Inpt Care Lvl 3 Diagnoses Stroke I63.9 Acute kidney injury superimposed on chronic kidney disease N17.9; N18.9 CKD stage 3 due to type 2 diabetes mellitus E11.22; N18.3 Hypertension I10 Hypertension type: unspecified Diabetes type 2, uncontrolled E11.65 Peripheral neuropathy G62.9 GERD (gastroesophageal reflux disease) K21.9 Anxiety F41.9 Depression F32.9 Hyperkalemia, diminished renal excretion E87.5 Acute urinary retention R33.8 Change in mental status R41.82 Narcotic overdose T40.601A (1) Hypertension Hypertension type: unspecified Qualified Code(s): I10 - Essential (primary) hypertension
[2021-02-16] MEDS ORDERED: GLUCOSE 10 TABS/TUBE PO PRN (05:41)
[2021-02-16] MEDS ORDERED: CARBOHYDRATES FOR HYPOGLYCEMIA PO PRN (05:41)
[2021-02-16] MEDS ORDERED: GLUCAGON FOR INJ 1 MG VIAL SQ PRN (05:41)
[2021-02-16] MEDS ORDERED: GLUCOSE 40% GEL 15 GM TUBE PO PRN (05:41)
[2021-02-16] MEDS ORDERED: ONDANSETRON INJ 2 MG/ML 2 ML VIAL IV PRN (05:41)
[2021-02-16] MEDS ORDERED: DEXTROSE 50% 50 ML SYRINGE IV PRN (05:41)
[2021-02-16] MEDS ORDERED: ACETAMINOPHEN 1000 MG/100 ML IV IV PRN (05:41)
[2021-02-16 06:08] LABS: HCO3 ABG 20 mmol/L (19-24); Oxygen Saturation ABG 98.9 % (90-95); PCO2 ABG 41 mmHg (35-46); PO2 ABG 144 mmHg (80-95); pH ABG 7.31 (7.35-7.45)
[2021-02-16 06:09] LABS: Allen Test Pos (Pos)
[2021-02-16] MEDS: SODIUM CHLORIDE 0.9% 1000ML 1,000 ML IV SCH ×3 (06:30→19:43)
--- NOTE | 2021-02-16 06:41 | Emergency Department Note ---
History of Present Illness General Chief complaint: Altered Mental Status Stated complaint: OVERDOSE/LETHARGY Time Seen by Provider: 02/16/21 01:13 Source: EMS and RN notes reviewed Mode of arrival: EMS Limitations: altered mental status History of Present Illness Provider complaint: AMS, ? opioid ingestion Maximum Pain Intensity: 0 This patient is a 65-year-old female who presents emergency department by EMS. Her apparently called after she was found to have an altered mental sta tus. He thought she had taken some of his hydrocodone. Patient did receive Narcan in route by EMS which the patient did respond to. She has been agitated unable to cooperate with exam. Patient is thrashing in the bed and yelling. Home Medications Medication Instructions Recorded Confirmed Type bupropion HCl 150 mg tablet,12 hr 150 mg PO QAM 08/28/19 02/16/21 History sustained-release hydroxyzine pamoate 25 mg capsule 25 mg PO BID 08/28/19 02/16/21 History hydroxyzine pamoate 50 mg capsule 50 mg PO HS 08/28/19 02/16/21 History quetiapine 300 mg tablet,extended 300 mg PO HS 08/28/19 02/16/21 History release 24 hr trazodone 150 mg tablet 150 mg PO HS 08/28/19 02/16/21 History venlafaxine 150 mg 150 mg PO QAM cap 11/19/19 02/16/21 History capsule,extended release 24 hr venlafaxine 75 mg capsule,extended 75 mg PO QAM cap 11/19/19 02/16/21 History release 24 hr lisinopril 20 mg tablet 20 mg PO QAM #90 tab 06/01/20 02/16/21 Rx pantoprazole 40 mg tablet,delayed 40 mg PO QAM #90 tab 06/01/20 02/16/21 Rx release sennosides 8.6 mg-docusate sodium 1 tab PO BID #180 tab 12/22/20 02/16/21 Rx 50 mg tablet (Senokot-S) loratadine 10 mg tablet (Allergy 10 mg PO QAM 12/23/20 02/16/21 History Relief (loratadine)) ondansetron 4 mg disintegrating 4 mg PO Q6H PRN #12 tab 12/23/20 02/16/21 Rx tablet aspirin 81 mg tablet,delayed 81 mg PO QAM 12/24/20 02/16/21 History release (Aspirin Low Dose) polyethylene glycol 3350 17 17 g PO DAILY #510 g 12/24/20 02/16/21 Rx gram/dose oral powder (Miralax) gabapentin 100 mg capsule See Rx Instructions .ROUTE 02/09/21 02/16/21 Rx .COMPLEX #450 cap Allergies Allergy/AdvReac Type Severity Reaction Status Date / Time No Known Allergies Allergy Unverified 12/24/20 14:32 Past Med/Surg History Medical History NATTY (acute kidney injury) Depression Stroke Surgical History H/O tubal ligation No pertinent past surgical history Family History Denies family history of Ovarian cancer Prostate cancer Myocardial infarction Breast cancer Colorectal cancer Colonic polyp Social History Smoking Status: Unknown if ever smoked Second Hand Exposure: No; Preferred Language: Panamanian Communication Ability: Unable Visual Impairment: No Limitations Hearing Ability: Normal Us Administrative Law Judge Required: No Beliefs That Will Affect Care: None marital status: Life Partner Current Living Situation: Spouse current occupational status: disabled How many Children do You have: 1 Feels Safe at Home: Yes Childhood Exposure to Second-Hand Smoke: No Dental Care, Regularly: No Physical Activity Frequency: Does not Exercise Seatbelt Use: always Sunscreen Use: No Assistive Devices: Glasses and Walker Review of Systems Unobtainable due to cognitive status Physical Exam Vital Signs Vital Signs - 24 hr 02/15/21 23:59 02/16/21 01:10 02/16/21 01:26 Temperature 36.6 C Temperature Source Oral Pulse Rate 100 H Pulse Rate [Right Finger] 83 Respiratory Rate 16 16 Respiratory Depth Normal Blood Pressure 111/58 L Blood Pressure [Right Arm] 132/90 Blood Pressure Mean 75 Blood Pressure Mean [Right Arm] 104 Blood Pressure Position Lying Blood Pressure Position [Right Arm] Lying Pulse Oximetry 96 99 100 Oxygen Delivery Method Room Air Room Air Room Air Sepsis Recent Fever Within 48 Hours No Sepsis New/Unexplained Change in Mental Status No Sepsis Action Taken by Nursing No Action Required 02/16/21 01:45 02/16/21 03:52 Temperature Temperature Source Pulse Rate Pulse Rate [Right Finger] 103 H 99 H Respiratory Rate 26 H 24 Respiratory Depth Blood Pressure Blood Pressure [Right Arm] 157/108 H 178/80 H Blood Pressure Mean Blood Pressure Mean [Right Arm] 124 112 Blood Pressure Position Blood Pressure Position [Right Arm] Pulse Oximetry 98 96 Oxygen Delivery Method Room Air Room Air Sepsis Recent Fever Within 48 Hours Sepsis New/Unexplained Change in Mental Status Sepsis Action Taken by Nursing Vital signs reviewed. Noted to be hypertensive. General: Agitated and restless 65-year-old female, appears older than stated age. Thrashing in the bed. Yelling. HEENT: No scleral icterus, PERRLA, neck supple. Atraumatic. Cardiovascular: Regular rate and rhythm, no extra sounds. Pulmonary: Clear to auscultation bilaterally, normal work of breathing. Abdomen: Soft, nontender, nondistended, positive bowel sounds. Musculoskeletal: Atraumatic, no peripheral edema. Neurologic: Patient awake alert and agitated. Unable to cooperate moves all 4 extremities equally. Speech is clear. Skin: Warm, dry, no rash Course Administered Medications Discontinued Medications Acetaminophen (Acetaminophen 1000 Mg/100 Ml Iv) 1,000 mg IV Q8H PRN PRN Reason: Pain or Fever Stop: 02/19/21 05:40 Last Admin: 02/18/21 03:18 Dose: 1,000 mg Documented by: [id number] Aspirin (Aspirin 81 Mg Ectab) 81 mg PO [facility] Stop: 03/20/21 08:59 Last Admin: 02/18/21 08:56 Dose: 81 mg Documented by: [id number] Bupropion HCl (Bupropion Sr 150 Mg Tabcr) 150 mg PO [facility] Stop: 03/20/21 08:59 Last Admin: 02/18/21 09:02 Dose: Not Given Documented by: [id number] Fentanyl Citrate (Fentanyl Citrate 100 Mcg/2 Ml Vial) 50 mcg IV NOW STA Stop: 02/16/21 03:11 Last Admin: 02/16/21 03:05 Dose: 50 mcg Documented by: [id number] Gabapentin (Gabapentin 300 Mg Cap) 300 mg PO NOW STA Stop: 02/16/21 01:32 Last Admin: 02/16/21 02:43 Dose: Not Given Documented by: [id number] Gabapentin (Gabapentin 300 Mg Cap) 300 mg PO NOW STA Stop: 02/16/21 01:34 Last Admin: 02/16/21 01:49 Dose: 300 mg Documented by: [id number] Haloperidol Lactate (Haloperidol Lactate 5 Mg/Ml 1 Ml Vial) 2.5 mg IV NOW STA Stop: 02/16/21 02:45 Last Admin: 02/16/21 02:51 Dose: 2.5 mg Documented by: [id number] Haloperidol Lactate (Haloperidol Lactate 5 Mg/Ml 1 Ml Vial) 5 mg IV NOW STA Stop: 02/16/21 03:27 Last Admin: 02/16/21 03:30 Dose: 5 mg Documented by: [id number] Heparin Sodium (Porcine) (Heparin Sod 5,000 Unit/0.5 Ml Vial) 5,000 units SQ Q12 NAVI Stop: 03/18/21 20:59 Last Admin: 02/18/21 08:57 Dose: 5,000 units Documented by: [id number] Admin: 02/17/21 20:37 Dose: 5,000 units Documented by: [id number] Admin: 02/17/21 09:24 Dose: 5,000 units Documented by: [id number] Admin: 02/16/21 21:18 Dose: 5,000 units Documented by: [id number] Sodium Chloride (Nss 1000ml) 1,000 mls @ 999 mls/hr IV .Q1H1M NAVI Stop: 02/16/21 02:15 Last Infusion: 02/16/21 02:52 Dose: 0 mls/hr Documented by: [id number] Admin: 02/16/21 01:51 Dose: 999 mls/hr Documented by: [id number] Lorazepam (Ativan) 1 mg in 2 mls @ 2 mls/min IV NOW STA Stop: 02/16/21 02:45 Last Admin: 02/16/21 02:51 Dose: 2 mls/min Documented by: [id number] Lorazepam (Ativan) 2 mg in 4 mls @ 4 mls/min IV NOW STA Stop: 02/16/21 03:27 Last Admin: 02/16/21 03:30 Dose: 4 mls/min Documented by: [id number] Sodium Chloride (Nss 1000ml) 1,000 mls @ 999 mls/hr IV .Q1H1M ONE Stop: 02/16/21 05:20 Last Infusion: 02/16/21 07:37 Dose: 0 mls/hr Documented by: [id number] Admin: 02/16/21 04:21 Dose: 999 mls/hr Documented by: [id number] Famotidine 20 mg/ Syringe 5 mls @ 2.5 mls/min IV Q12H NAVI Stop: 02/17/21 22:59 Last Admin: 02/17/21 20:38 Dose: 2.5 mls/min Documented by: [id number] Admin: 02/17/21 09:23 Dose: 2.5 mls/min Documented by: [id number] Admin: 02/16/21 21:19 Dose: 2.5 mls/min Documented by: [id number] Admin: 02/16/21 07:59 Dose: 2.5 mls/min Documented by: [id number] Ceftriaxone Sodium 1,000 mg/ (Dextrose) 50 mls @ 100 mls/hr IV Q24H NAVI; Protocol Stop: 02/26/21 05:59 Last Infusion: 02/17/21 06:42 Dose: 0 mls/hr Documented by: [id number] Admin: 02/17/21 06:08 Dose: 100 mls/hr Documented by: [id number] Infusion: 02/16/21 08:25 Dose: 0 mls/hr Documented by: [id number] Admin: 02/16/21 07:50 Dose: 100 mls/hr Documented by: [id number] Sodium Chloride (Nss 1000ml) 1,000 mls @ 100 mls/hr IV .Q10H NAVI Stop: 03/18/21 05:59 Last Admin: 02/18/21 03:18 Dose: 100 mls/hr Documented by: [id number] Infusion: 02/18/21 03:18 Dose: 100 mls/hr Documented by: [id number] Admin: 02/17/21 18:04 Dose: 100 mls/hr Documented by: [id number] Infusion: 02/17/21 18:04 Dose: 100 mls/hr Documented by: [id number] Admin: 02/17/21 11:50 Dose: 100 mls/hr Documented by: [id number] Infusion: 02/17/21 11:08 Dose: 200 mls/hr Documented by: [id number] Admin: 02/17/21 06:08 Dose: 200 mls/hr Documented by: [id number] Infusion: 02/17/21 05:52 Dose: 200 mls/hr Documented by: [id number] Admin: 02/17/21 00:52 Dose: 200 mls/hr Documented by: [id number] Infusion: 02/17/21 00:43 Dose: 200 mls/hr Documented by: [id number] Admin: 02/16/21 19:43 Dose: 200 mls/hr Documented by: [id number] Infusion: 02/16/21 19:43 Dose: 200 mls/hr Documented by: [id number] Admin: 02/16/21 14:46 Dose: 200 mls/hr Documented by: [id number] Infusion: 02/16/21 14:46 Dose: 125 mls/hr Documented by: [id number] Infusion: 02/16/21 10:19 Dose: 125 mls/hr Documented by: [id number] Infusion: 02/16/21 09:18 Dose: 0 mls/hr Documented by: [id number] Admin: 02/16/21 06:30 Dose: 125 mls/hr Documented by: [id number] Magnesium Sulfate/Dextrose (Magnesium Sulfate / D5w) 1 gm in 100 mls @ 50 mls/hr IV ONE ONE Stop: 02/17/21 19:14 Last Infusion: 02/17/21 20:27 Dose: 0 mls/hr Documented by: [id number] Admin: 02/17/21 17:47 Dose: 50 mls/hr Documented by: [id number] Insulin Aspart (Insulin Aspart 100 Units/Ml 3 Ml Pen) 0 units SC ACHS [facility] Stop: 03/18/21 07:29 Last Admin: 02/16/21 17:13 Dose: Not Given Documented by: [id number] Admin: 02/16/21 12:01 Dose: Not Given Documented by: [id number] Admin: 02/16/21 07:58 Dose: Not Given Documented by: [id number] Insulin Aspart (Insulin Aspart 100 Units/Ml 3 Ml Pen) 0 units SC Q6 NAVI Stop: 03/18/21 07:29 Last Admin: 02/17/21 06:25 Dose: Not Given Documented by: [id number] Cosigned by: [id number] Admin: 02/17/21 00:52 Dose: Not Given Documented by: [id number] Admin: 02/16/21 19:57 Dose: Not Given Documented by: [id number] Cosigned by: [id number] Insulin Aspart (Insulin Aspart 100 Units/Ml 3 Ml Pen) 0 units SC ACHS NAVI Stop: 03/19/21 11:29 Last Admin: 02/18/21 12:01 Dose: Not Given Documented by: [id number] Admin: 02/18/21 09:00 Dose: Not Given Documented by: [id number] Cosigned by: [id number] Admin: 02/17/21 20:38 Dose: Not Given Documented by: [id number] Admin: 02/17/21 17:19 Dose: Not Given Documented by: [id number] Admin: 02/17/21 12:09 Dose: 1 units Documented by: [id number] Cosigned by: [id number] Lisinopril (Lisinopril 20 Mg Tab) 20 mg PO QAM [facility] Stop: 03/20/21 08:59 Last Admin: 02/18/21 08:56 Dose: 20 mg Documented by: [id number] Lorazepam (Lorazepam 1 Mg Tab) 2 mg SL NOW STA Stop: 02/16/21 01:33 Last Admin: 02/16/21 01:50 Dose: 2 mg Documented by: [id number] Lorazepam (Lorazepam 0.5 Mg Tab) 0.5 mg PO NOW STA Stop: 02/18/21 11:34 Last Admin: 02/18/21 12:03 Dose: 0.5 mg Documented by: [id number] Miscellaneous (Carbohydrates For Hypoglycemia ) 15 - 30 gm PO UD PRN PRN Reason: Hypoglycemia Protocol Stop: 03/18/21 05:40 Last Admin: 02/17/21 06:14 Dose: 15 gm Documented by: [id number] Pantoprazole Sodium (Pantoprazole 40 Mg Tab) 40 mg PO QAM [facility] Stop: 03/20/21 08:59 Last Admin: 02/18/21 08:55 Dose: 40 mg Documented by: [id number] Polyethylene Glycol (Polyethylene (Miralax) 17 Gm Pack) 17 gm PO DAILY NAVI Stop: 03/20/21 08:59 Last Admin: 02/18/21 09:03 Dose: Not Given Documented by: [id number] Medical Decision Making Differential Diagnosis Overdose, toxicologic, infection, hypoglycemia, electrolyte abnormalities, cardiac sources, intracerebral event, neurologic, trauma, as well as other pathologies. Medical Records Attestation: I reviewed the patient's medical records. Home Medications Current Medication List: was personally reviewed by me Laboratory Data Attestation: I reviewed the patient's lab results. Result diagrams: 02/18/21 07:11 02/18/21 07:11 Lab Results 02/16/21 02/16/21 02/16/21 Range/Units 01:10 01:10 01:22 WBC 8.84 (4.8-10.8) K/uL RBC 3.82 L (4.2-5.4) M/uL Hgb 9.4 L (12.0-16.0) g/dL Hct 29.7 L (37-47) % MCV 77.7 L (80-100) fL MCH 24.6 L (25-34) pg MCHC 31.6 L (32-36) g/dL RDW Std Deviation 48.4 H (36.4-46.3) fL RDW Coeff of Chanelle 17.0 H (11.5-14.5) % Plt Count 347 (130-400) K/uL MPV 10.0 (7.4-10.4) fL Immature Gran % (Auto) 0.1 % Neut % (Auto) 78.6 % Lymph % (Auto) 11.1 % [place] % (Auto) 8.4 % Eos % (Auto) 1.5 % Baso % (Auto) 0.3 % Neut # (Auto) 6.95 H (1.4-6.5) K/uL Lymph # (Auto) 0.98 L (1.2-3.4) K/uL [place] # (Auto) 0.74 H (0.11-0.59) K/uL Eos # (Auto) 0.13 (0-0.5) K/uL Baso # (Auto) 0.03 (0-0.2) K/uL Immature Gran # (Auto) 0.01 (0.00-0.02) K/uL Sodium 136 (136-145) mmol/L Potassium 5.8 H (3.5-5.1) mmol/L Chloride 109 H (98-107) mmol/L Carbon Dioxide 20 L (21-32) mmol/L Anion Gap 7.0 (3-11) BUN 52 H (7-18) mg/dl Creatinine 3.34 H (0.6-1.2) mg/dl Est Cr Clr Drug Dosing 15.5 ml/min Est GFR ( Amer) 15.8 ml/min Est GFR (Non-Af Amer) 13.7 ml/min BUN/Creatinine Ratio 15.4 (10-20) Glucose 131 H (70-99) mg/dl Calcium 9.9 (8.5-10.1) mg/dl Total Bilirubin 0.2 (0.2-1) mg/dl AST 33 (15-37) U/L ALT 22 (12-78) U/L Alkaline Phosphatase 79 (45-117) U/L Total Protein 6.8 (6.4-8.2) gm/dl Albumin 3.3 L (3.4-5.0) gm/dl Globulin 3.5 (2.5-4.0) gm/dl Albumin/Globulin Ratio 0.9 (0.9-2) Specimen Hemolysis Urine Color Urine Appearance (Clear) Urine pH (4.5-7.5) Ur Specific [place] (1.000-1.030) Urine Protein (Negative) Urine Glucose (UA) (Negative) Urine Ketones (Negative) Urine Blood (Negative) Urine Nitrite (Negative) Urine Bilirubin (Negative) Urine Urobilinogen (Negative) Ur Leukocyte Esterase (Negative) Urine WBC (Auto) (0-5) /hpf Urine RBC (Auto) (0-4) /hpf U Hyaline Cast (Auto) (0-5) /lpf U Epithel Cells (Auto) (0-5) /lpf Urine Bacteria (Auto) (Negative) Salicylates (2.8-20) mg/dl Urine Opiates Screen Pos H (Neg) U Codeine Confrm GC/MS (<50) ng/mL Ur Morphine (GC/MS) (<50) ng/mL Ur Hydrocodone (GC/MS) (<50) ng/mL Ur Norhydrocodone (<50) ng/mL Ur Noroxycodone (<50) ng/mL Urine Oxycodone (GC/MS) (<50) ng/mL U Oxymorphone GC/MS (<50) ng/mL Ur Methadone, Qual Neg (Neg) Ur Hydromorphone (GC/MS) (<50) ng/mL Acetaminophen (10-30) ug/ml Urine Barbiturates Neg (Neg) Ur Phencyclidine (PCP) Neg (Neg) U Amphetamin/Meth Scrn Neg (Neg) MDMA (Ecstasy) Screen Neg (Neg) U Benzodiazepines Scrn Neg (Neg) Ur Cocaine Metabolite Neg (Neg) U Marijuana (THC) Screen Neg (Neg) Drug Screen Comment Ethyl Alcohol mg/dL (0-3) mg/dl COVID-19 Eval Order SARS-CoV-2 (PCR) (Negative) 02/16/21 02/16/21 02/16/21 Range/Units 01:22 01:22 01:28 WBC (4.8-10.8) K/uL RBC (4.2-5.4) M/uL Hgb (12.0-16.0) g/dL Hct (37-47) % MCV (80-100) fL MCH (25-34) pg MCHC (32-36) g/dL RDW Std Deviation (36.4-46.3) fL RDW Coeff of Chanelle (11.5-14.5) % Plt Count (130-400) K/uL MPV (7.4-10.4) fL Immature Gran % (Auto) % Neut % (Auto) % Lymph % (Auto) % [place] % (Auto) % Eos % (Auto) % Baso % (Auto) % Neut # (Auto) (1.4-6.5) K/uL Lymph # (Auto) (1.2-3.4) K/uL [place] # (Auto) (0.11-0.59) K/uL Eos # (Auto) (0-0.5) K/uL Baso # (Auto) (0-0.2) K/uL Immature Gran # (Auto) (0.00-0.02) K/uL Sodium (136-145) mmol/L Potassium (3.5-5.1) mmol/L Chloride (98-107) mmol/L Carbon Dioxide (21-32) mmol/L Anion Gap (3-11) BUN (7-18) mg/dl Creatinine (0.6-1.2) mg/dl Est Cr Clr Drug Dosing ml/min Est GFR ( Amer) ml/min Est GFR (Non-Af Amer) ml/min BUN/Creatinine Ratio (10-20) Glucose (70-99) mg/dl Calcium (8.5-10.1) mg/dl Total Bilirubin (0.2-1) mg/dl AST (15-37) U/L ALT (12-78) U/L Alkaline Phosphatase (45-117) U/L Total Protein (6.4-8.2) gm/dl Albumin (3.4-5.0) gm/dl Globulin (2.5-4.0) gm/dl Albumin/Globulin Ratio (0.9-2) Specimen Hemolysis Urine Color Yellow Urine Appearance Clear (Clear) Urine pH 5.5 (4.5-7.5) Ur Specific [place] 1.005 (1.000-1.030) Urine Protein Negative (Negative) Urine Glucose (UA) Negative (Negative) Urine Ketones Negative (Negative) Urine Blood Trace H (Negative) Urine Nitrite Negative (Negative) Urine Bilirubin Negative (Negative) Urine Urobilinogen Negative (Negative) Ur Leukocyte Esterase Negative (Negative) Urine WBC (Auto) 1-5 (0-5) /hpf Urine RBC (Auto) 0-4 (0-4) /hpf U Hyaline Cast (Auto) 0 (0-5) /lpf U Epithel Cells (Auto) 5-10 H (0-5) /lpf Urine Bacteria (Auto) Negative (Negative) Salicylates < 1.7 L (2.8-20) mg/dl Urine Opiates Screen (Neg) U Codeine Confrm GC/MS NEGATIVE (<50) ng/mL Ur Morphine (GC/MS) NEGATIVE (<50) ng/mL Ur Hydrocodone (GC/MS) NEGATIVE (<50) ng/mL Ur Norhydrocodone NEGATIVE (<50) ng/mL Ur Noroxycodone NEGATIVE (<50) ng/mL Urine Oxycodone (GC/MS) NEGATIVE (<50) ng/mL U Oxymorphone GC/MS NEGATIVE (<50) ng/mL Ur Methadone, Qual (Neg) Ur Hydromorphone (GC/MS) 1360 H (<50) ng/mL Acetaminophen < 2 L (10-30) ug/ml Urine Barbiturates (Neg) Ur Phencyclidine (PCP) (Neg) U Amphetamin/Meth Scrn (Neg) MDMA (Ecstasy) Screen (Neg) U Benzodiazepines Scrn (Neg) Ur Cocaine Metabolite (Neg) U Marijuana (THC) Screen (Neg) Drug Screen Comment SEE NOTE Ethyl Alcohol mg/dL (0-3) mg/dl COVID-19 Eval Order SARS-CoV-2 (PCR) (Negative) 02/16/21 02/16/21 02/16/21 Range/Units 01:28 01:46 01:46 WBC (4.8-10.8) K/uL RBC (4.2-5.4) M/uL Hgb (12.0-16.0) g/dL Hct (37-47) % MCV (80-100) fL MCH (25-34) pg MCHC (32-36) g/dL RDW Std Deviation (36.4-46.3) fL RDW Coeff of Chanelle (11.5-14.5) % Plt Count (130-400) K/uL MPV (7.4-10.4) fL Immature Gran % (Auto) % Neut % (Auto) % Lymph % (Auto) % [place] % (Auto) % Eos % (Auto) % Baso % (Auto) % Neut # (Auto) (1.4-6.5) K/uL Lymph # (Auto) (1.2-3.4) K/uL [place] # (Auto) (0.11-0.59) K/uL Eos # (Auto) (0-0.5) K/uL Baso # (Auto) (0-0.2) K/uL Immature Gran # (Auto) (0.00-0.02) K/uL Sodium (136-145) mmol/L Potassium (3.5-5.1) mmol/L Chloride (98-107) mmol/L Carbon Dioxide (21-32) mmol/L Anion Gap (3-11) BUN (7-18) mg/dl Creatinine (0.6-1.2) mg/dl Est Cr Clr Drug Dosing ml/min Est GFR ( Amer) ml/min Est GFR (Non-Af Amer) ml/min BUN/Creatinine Ratio (10-20) Glucose (70-99) mg/dl Calcium (8.5-10.1) mg/dl Total Bilirubin (0.2-1) mg/dl AST (15-37) U/L ALT (12-78) U/L Alkaline Phosphatase (45-117) U/L Total Protein (6.4-8.2) gm/dl Albumin (3.4-5.0) gm/dl Globulin (2.5-4.0) gm/dl Albumin/Globulin Ratio (0.9-2) Specimen Hemolysis Urine Color Urine Appearance (Clear) Urine pH (4.5-7.5) Ur Specific [place] (1.000-1.030) Urine Protein (Negative) Urine Glucose (UA) (Negative) Urine Ketones (Negative) Urine Blood (Negative) Urine Nitrite (Negative) Urine Bilirubin (Negative) Urine Urobilinogen (Negative) Ur Leukocyte Esterase (Negative) Urine WBC (Auto) (0-5) /hpf Urine RBC (Auto) (0-4) /hpf U Hyaline Cast (Auto) (0-5) /lpf U Epithel Cells (Auto) (0-5) /lpf Urine Bacteria (Auto) (Negative) Salicylates (2.8-20) mg/dl Urine Opiates Screen (Neg) U Codeine Confrm GC/MS (<50) ng/mL Ur Morphine (GC/MS) (<50) ng/mL Ur Hydrocodone (GC/MS) (<50) ng/mL Ur Norhydrocodone (<50) ng/mL Ur Noroxycodone (<50) ng/mL Urine Oxycodone (GC/MS) (<50) ng/mL U Oxymorphone GC/MS (<50) ng/mL Ur Methadone, Qual (Neg) Ur Hydromorphone (GC/MS) (<50) ng/mL Acetaminophen (10-30) ug/ml Urine Barbiturates (Neg) Ur Phencyclidine (PCP) (Neg) U Amphetamin/Meth Scrn (Neg) MDMA (Ecstasy) Screen (Neg) U Benzodiazepines Scrn (Neg) Ur Cocaine Metabolite (Neg) U Marijuana (THC) Screen (Neg) Drug Screen Comment Ethyl Alcohol mg/dL < 3.0 (0-3) mg/dl COVID-19 Eval Order Covid19 at [facility] SARS-CoV-2 (PCR) NEGATIVE (Negative) Imaging Data Radiologist's Impression: Head CT 02/16/21 01:[address] DOSE: 1642.00 mGycm HISTORY: Altered mental status. TECHNIQUE: Multiaxial CT images of the head were performed without the use of intravenous contrast. Automated exposure control was utilized for this study. A dose lowering technique was utilized adhering to the principles of ALARA. Comparison: Head CT 01/25/2012. Findings: The paranasal sinuses and mastoid air cells are clear. Motion art ifact. No definite mass, hematoma, midline shift. Hypodense foci within the posterior parietal lobes consistent with old infarcts. There is also a 3 cm hypodensity within the left posterior occipital lobe which appears to represent a subacute infarct. Old lacunar infarct within the left caudate head. Impression: 1. Motion artifact. Subacute infarct within the left occipital lobe measuring 3 cm. 2. Additional old infarcts as described above. ACT 112: Negative or not required by law. Electronically signed by: Fly Bernal M.D. 02/16/2021 7:[address] 02/16/21 03:24 CT cervical spine wo con CT DOSE: 1544.64 mGycm CLINICAL HISTORY: 65 years-old Female with trauma. Acute post grammatical neck injury COMPARISON: Head CT of same day, CT cervical spine 01/15/2012 TECHNIQUE: Multiple axial CT images of the cervical spine were obtained without contrast. A dose lowering technique was utilized adhering to the principles of ALARA. FINDINGS: There is developmental incomplete bony fusion involving the anterior and posterior arch of C1 with progressive associated osteophytic spurring. Moderate intervertebral disc space narrowing at C4-C5. Degenerative partial bony fusion involves the left C4-C5 facets. There is severe multilevel facet arthrosis. Demineralized appearance of the bones. Mild to moderate intervertebral disc space narrowing with grade 1 anterolisthesis at C5-C6, likely on a degenerative basis, progressed from comparison. No acute fracture or subluxation. Study is mildly motion degraded. Mild dextroscoliosis. Multilevel neural foraminal narrowing. Calcified plaque of the carotid arteries. The lung apices are clear without pneumothorax. No prevertebral edema. IMPRESSION: No acute fracture or subluxation. ACT 112: Negative or not required by law. The above report was generated using voice recognition software. It may contain grammatical, syntax or spelling errors. Electronically signed by: Sancho Gipson M.D. 02/16/2021 12:51 PM ECG Data Attestation: I personally reviewed and interpreted this ECG as follows: Indication: + altered mental status Rate (beats per minute): 98 Rhythm: + normal sinus ECG Intervals/blocks: + Normal QRS and + Normal QT-c ECG [place]: + Normal ECG ST segments: + Normal ST segments ECG Findings: no PACs or no PVCs Blood Pressure Blood Pressure Findings: Elevated blood pressure Blood Pressure Disposition: further management by hospitalist MDM Narrative This patient was evaluated and appeared to be agitated and restless. Patient was given IV Ativan and IV Haldol for agitation and inability to cooperate. She was a danger to herself and yelling quite loudly across the department. Patient coul d not sit still. Laboratory work reveals an elevated creatinine consistent with an NATTY. Patient solution, she did require additional Haldol and Ativan for sedation. Nursing staff suggested perhaps she was in opiate withdrawal as she did not respond to the smaller doses. Patient was given a small dose of fentanyl without much change. Patient was reevaluated and felt to be more stable. She will require hospitalization for the encephalopathy that is likely medication related. Later patient's did call him and states that she had hit her head and that he believes that she was taking Dilaudid elixir, not hydrocodone. Patient's case was discussed with the hospitalist service who will evaluate the patient for further management. Impression & Plan Metabolic encephalopathy, Delirium, Opioid intoxication Discharge Plan Visit Data Chief Complaint: Altered Mental Status Stated Complaint: OVERDOSE/LETHARGY ED Provider: Charmaine Cooper Patient Disposition: Admitted As Inpatient Discharge Instructions Interventions: ED Discharge Assessment Last Done: 02/16/21 05:09
[2021-02-16] MEDS ORDERED: NALOXONE HCL INJ 1 MG/ML 2ML SYR INTNAS PRN (06:53)
--- NOTE | 2021-02-16 07:25 | CT Scan Report ---
HEAD CT NONCONTRAST CT DOSE: 1642.00 mGycm HISTORY: Altered mental status. TECHNIQUE: Multiaxial CT images of the head were performed without the use of intravenous contrast. A utomated exposure control was utilized for this study. A dose lowering technique was utilized adheri ng to the principles of ALARA. Comparison: Head CT 01/25/2012. Findings: The paranasal sinuses and mastoid air cells are clear. Motion artifact. No definite mass, h ematoma, midline shift. Hypodense foci within the posterior parietal lobes consistent with old infarc ts. There is also a 3 cm hypodensity within the left posterior occipital lobe which appears to repres ent a subacute infarct. Old lacunar infarct within the left caudate head. Impression: 1. Motion artifact. Subacute infarct within the left occipital lobe measuring 3 cm. 2. Additional old infarcts as described above. ACT 112: Negative or not required by law. Electronically signed by: Fly Bernal M.D. 02/16/2021 7:24 AM
[2021-02-16] MEDS: cefTRIAXone SODIUM 1,000 MG in DEXTROSE 5% 50 ML IV SCH (07:50)
--- NOTE | 2021-02-16 07:50 | Neurology Consultation ---
Date of Consultation February 16, 2021 Assessment & Plan (1) Acute CVA (cerebrovascular accident): Patient with LEFT subacute to chronic occipital infarct and chronic LEFT parietal infarct, images reviewed by myself and Dr. Collins, and Radiology reports reviewed. Do not suspect that patient's acute presentation is due to these chronic infarcts, but rather secondary to metabolic encephalopathy as described below. Unable to perform CTA Head/Neck due to NATTY; Carotid US likely low yield in the setting of posterior chronic CVA. Echo pending. Patient does not smoke per history. A1c 5.8%, lipid panel performed. Recommendations: Agree with addition of Plavix concurrently with home baby aspirin for 3-4 weeks and then transition to Plavix alone. Agree with continued optimization of DM2 for secondary risk prevention, as well as addition of high-intensity statin. As patient becomes more alert can be evaluated by PT/OT to assess gait stability as patient did have signs of multiple falls on exam. (2) Metabolic encephalopathy: Most likely secondary to opiate ingestion, as well as contributing factor of polypharmacy (Haldol, Fentanyl, gabapentin, lorazepam) received in ER. While patient's partner does not recall seeing the patient take any opiate medications, she did have opiate positive toxicology. She is not prescribed opiate medications per PDMP. Per partner, patient does not drink alcohol and no concern at this time on exam for alcohol-related pathology or withdrawal. Possibly some element of uremic encephalopathy given significant NATTY. No signs on exam or labwork suggestive of infectious encephalopathy. Suspect continued improvement through the afternoon as patient's oxygen demand is already decreased from earlier this morning. Recommendations: Agree with holding patient's home gabapentin, Seroquel, trazodone. Avoid sedating medications. Repeat ABG and consider repeat Narcan dosing if patient's GCS becomes worse, or unable to protect airway. Continue IV fluid repletion for ? uremic encephalopathy. Please see Dr. Collins's attestation for any clarifying data or adjustments to plan not otherwise described above. Supervising Physician Co-Signing Physician Notes Patient was seen and I completed a bedside history and physical examination. I agree with Dr. Dobson's history, physical, impression and plan. She arrived to the emergency room at midnight last night with an altered mental status. There was concern about narcotic overdose. Interestingly, she received 1 dose of Narcan by the EMS and had noticeable improvement in responsiveness. She is not supposed to be on opiates but may have taken her 's. She then became combative and agitated and was given a total of 5 mg lorazepam, 7.5 mg of Haldol, and 50 mcg of fentanyl in the emergency room. She has been obtunded ever since. Laboratory studies reveal anemia, elevated BUN and creatinine, with the urine toxicology screen positive for opiates. a CT scan of the head was obtained and there was a question of subacute stroke in the occipital head region. I was not impressed with this as I reviewed the CT. It looks older to me. MRI of the brain was obtained And showed old stroke the occipital and parietal head regions on left. There was moderate old small vessel ischemic disease again left greater than right side. I reviewed these films And discuss them with Dr. Sevilla. MR angiography of the head was unremarkable. She cannot get CT angiography because of her kidney issues (no dye) On neurologic examination , she was sleepy and snoring. She was difficult to arouse but could be with the pain. She set up told me her name and went back to sleep. Extraocular eye muscles were intact without nystagmus and pupils were 3 mm bilaterally reactive to light. There is no facial droop. Neck was supple. Tone was symmetrical in the limbs. Strength seemed symmetrical in the limbs being quite good with withdrawing to manipulation and pain. She reacted quickly with deep pain in all 4 limbs withdrawing. Toes were upgoing with plantar stimulation on the right and downgoing on the left. Reflexes were 1/4 throughout. Overall, there is no evidence for an acute stroke. She does have old occipital and parietal strokes on the left. The upgoing toe on the right is consistent wi th these old strokes. The age is undetermined and I do not have any additional history. Her encephalopathy is likely due to opiate ingestion and today she is suffering the affects of polypharmacy from the ER. Avoid sedating medication and will follow patient. Otherwise, recommendations as per Dr. Dobson. Tosha Collins MD History of Present Illness Reason for Consultation: Acute CVA, encephalopathy Requesting Physician: Silas Bell MD Attending Physician: Silas Bell MD History of Present Illness 65 yo F Hx HTN, DM2 with peripheral neuropathy, CKD III, anxiety, depression presented to ER for several days of falls, altered mental status/confusion, agitation. History provided by partner on admission due to patient's altered mental status. Per history, patient's symptoms started on 02/13 with "lethargy, generalized weakness, falls". Partner has never seen the patient take any of his pain medications but "did not want to rule it out". He did not report recent illness, decreased PO intake, complaints of headaches. He reports that he has never seen her drink nor smoke in the 25 years they have been together. Due to her mental status and unclear opiate consumption she was Narcan'ed x1 in the field prior to arrival. Due to agitation and inability to perform imaging, patient was given 7.5mg Haldol, 300mg gabapentin, 50mcg Fentanyl, and 5mg lorazepam by ER provider. Patient was found on CT Head to have several subacute/chronic infarcts. Due to symptom interval patient did not receive TPA. Neurology was consulted by Dr. Bell for CVA management. On my interview patient is snoring, obtunded, does arouse to painful stimuli and was able to state her name before immediately falling back asleep. Unable to answer questions meaningfully at this time. Imaging personally reviewed by myself and Dr. Collins: CT Head: subacute to chronic 3cm LEFT occipital infarct. Also notable for 3cm LEFT parietal infarct that is perhaps slightly older than occipital infarct. MRI Head: DWI reviewed, and note old subacute to chronic occipital infarct. T2 FLAIR reviewed, moderate diffuse L>R white matter disease; do also note chronic LEFT occipital and parietal infarcts. Allergies Allergy/AdvReac Type Severity Reaction Status Date / Time No Known Allergies Allergy Unverified 12/24/20 14:32 Home Medications Medication Instructions Recorded Confirmed Type bupropion HCl 150 mg tablet,12 hr 150 mg PO QAM 08/28/19 02/16/21 History sustained-release hydroxyzine pamoate 25 mg capsule 25 mg PO BID 08/28/19 02/16/21 History hydroxyzine pamoate 50 mg capsule 50 mg PO HS 08/28/19 02/16/21 History quetiapine 300 mg tablet,extended 300 mg PO HS 08/28/19 02/16/21 History release 24 hr trazodone 150 mg tablet 150 mg PO HS 08/28/19 02/16/21 History venlafaxine 150 mg 150 mg PO QAM cap 11/19/19 02/16/21 History capsule,extended release 24 hr venlafaxine 75 mg capsule,extended 75 mg PO QAM cap 11/19/19 02/16/21 History release 24 hr lisinopril 20 mg tablet 20 mg PO QAM #90 tab 06/01/20 02/16/21 Rx pantoprazole 40 mg tablet,delayed 40 mg PO QAM #90 tab 06/01/20 02/16/21 Rx release sennosides 8.6 mg-docusate sodium 1 tab PO BID #180 tab 12/22/20 02/16/21 Rx 50 mg tablet (Senokot-S) loratadine 10 mg tablet (Allergy 10 mg PO QAM 12/23/20 02/16/21 History Relief (loratadine)) ondansetron 4 mg disintegrating 4 mg PO Q6H PRN #12 tab 12/23/20 02/16/21 Rx tablet aspirin 81 mg tablet,delayed 81 mg PO QAM 12/24/20 02/16/21 History release (Aspirin Low Dose) polyethylene glycol 3350 17 17 g PO DAILY #510 g 12/24/20 02/16/21 Rx gram/dose oral powder (Miralax) gabapentin 100 mg capsule See Rx Instructions .ROUTE 02/09/21 02/16/21 Rx .COMPLEX #450 cap Patient History Medical History NATTY (acute kidney injury) Depression Stroke Surgical History H/O tubal ligation No pertinent past surgical history Family History Denies family history of Ovarian cancer Prostate cancer Myocardial infarction Breast cancer Colorectal cancer Colonic polyp Social History Smoking Status: Unknown if ever smoked Second Hand Exposure: No; Preferred Language: German Communication Ability: Unable Visual Impairment: No Limitations Hearing Ability: Normal Claims Configuration Analyst Required: No Beliefs That Will Affect Care: None marital status: Life Partner Current Living Situation: Spouse current occupational status: disabled How many Children do You have: 1 Feels Safe at Home: Yes Childhood Exposure to Second-Hand Smoke: No Dental Care, Regularly: No Physical Activity Frequency: Does not Exercise Seatbelt Use: always Sunscreen Use: No Assistive Devices: None Review of Systems Review of Systems: Unobtainable due to reduced consciousness Physical Exam Constitutional: WD/WN, vitals as above Respiratory: Currently on 10L Oxymask, seen snoring. Musculoskeletal: Ecchymosis at different stages of healing noted on bilateral knees Neurologic: Patient is neither alert nor oriented at this time. Exam significantly limited by patient's reduced level of consciousness. GCS score of 5 (eye opening to pain, no motor response, incomprehensible sounds) Pupils equally round and reactive to light. No noted facial droop. Good symmetrical tone on exam, no focal abnormalities. DTRs (patellar, Achilles, biceps, triceps, brachioradialis) 2+ bilaterally. Babinski upward in right foot, downward in left foot. Results & Data ([facility]) Vital Signs (Past 12 Hours) Vital Signs Temp Pulse Pulse Pulse Resp BP BP 02/16/21 05:30 36.5 C 85 22 99/51 L 02/16/21 04:59 87 20 112/58 L 02/16/21 03:52 99 H 24 178/80 H 02/16/21 01:45 103 H 26 H 157/108 H 02/16/21 01:26 02/16/21 01:10 83 16 132/90 02/15/21 23:59 36.6 C 100 H 16 111/58 L Pulse Ox 02/16/21 05:30 98 02/16/21 04:59 92 02/16/21 03:52 96 02/16/21 01:45 98 02/16/21 01:26 100 02/16/21 01:10 99 02/15/21 23:59 96 Laboratory Results Noted to have Hgb 9.4 with microcytic MCV of 77.7. WBC 8.84, with elevated neutrophils 6.95. ABG with pH 7.31, CO2 41, O2 144, HCO3 20. K 5.8, Cr 3.34 (baseline 1.6), glu 131. UA negative for infectious signs Toxicology pertinent positive of opiates with further classification pending. EtOH level negative. Diagnostic Findings CT Head, CT Cervical Spine, MRI Head, MRA Head performed. Please see HPI for my / Dr. Collins's review. Please also see Dr. Collins's attestation for any clarifying data.
[2021-02-16] MEDS: INSULIN ASPART 100 UNITS/ML 3 ML PEN SC SCH ×4 (07:58→19:57)
[2021-02-16] MEDS: FAMOTIDINE 20 MG in SYRINGE 3 ML IV SCH ×2 (07:59→21:19)
--- NOTE | 2021-02-16 08:05 | Hospitalist Progress Note ---
Date of Service February 16, 2021 Assessment & Plan (1) Acute CVA (cerebrovascular accident): (2) Metabolic encephalopathy: (3) Narcotic overdose: (4) Acute urinary retention: (5) Hyperkalemia, diminished renal excretion: (6) Acute kidney injury superimposed on chronic kidney disease: (7) Hypertension: (8) Diabetes type 2, uncontrolled: (9) GERD (gastroesophageal reflux disease): (10) Anxiety: (11) Depression: Plan: Nevin Suarez is a 65-year-old female with PMH of CKD3, DM2, Peripheral neuropathy, anxiety/depression, GERD who was brought to [facility] due to altered mental status. Altered Mental Status - Likely secondary to narcotic overdose and polypharmacy required for agitation in ED - Troponin negative, EKG with NSR, Echo pending - No CTA head and neck ordered due to NATTY on CKD. - CT scan of head showing a subacute 3.2 x 2 cm left occipital lobe infarct, a 3 cm old left parietal lobe infarct, and a 5 mm old left caudate head infarct. - However, MRI brain with no acute intracranial hemorrhage, no midline shift or space occupying lesions. No areas of restricted diffusion to suggest acute ischemia/infarct. Multiple areas of encephalomalacia likely represent sequela from prior infarct. - MRA head unremarkable - In light of negative MRI of the brain, likely at this point that this is toxic encephalopathy from medications - 2 ABGs so far without hypercapnia--low threshold to repeat if any signs of worsening - Neuro consult: - Overall, there is no evidence for an acute stroke. She does have old occipital and parietal strokes on the left. - Agree with addition of Plavix concurrently with home baby aspirin for 3-4 weeks and then transition to Plavix alone. Agree with continued optimization of DM2 for secondary risk prevention, as well as addition of high-intensity statin. As patient becomes more alert can be evaluated by PT/OT to assess gait stability as patient did have signs of multiple falls on exam. - Her encephalopathy is likely due to opiate ingestion and today she is suffering the affects of polypharmacy from the ER. - Avoid sedating medication and will follow patient. - The patient did receive Narcan x1 in route to the ED by EMS, with some reported improvement in responsiveness - Patient is not on opiates that are prescribed to her, and was seemingly using her long-time partner's opiates. - Holding any further Narcan for now--can consider Narcan/Flumazenil if worsening status in light of opioids at home + benzos in ED NATTY on CKD stage III: Creatinine 3.34 upon admission, with baseline around 1.5 - Likely pre-renal in the setting of AMS at home - Increased to NSS @ 200 cc/hr - Creatinine trending down to around 2.02 on 8 PM - Repeat BMP in AM Cerebrovascular Disease: - As above, signs of older strokes on brain imaging - As such, despite likelihood that stroke is not an acute concern, she will require medical optimization going forward - Per neuro recs above, plan for ASA 81mg daily, Plavix 75mg daily, and high- intensity statin once patient more alert and can tolerate PO - A1c 5.8, DM2 well controlled - Per patient''s partner, she is a non-smoker Chronic Issues: DM2: SSI, A1c 5.8 GERD: Holding oral pantoprazole, on Famotidine 20mg IV BID HTN, Anxiety/Depression, Peripheral neuropathy: Holding all oral meds due to mental status, plan to restart home regimens when able to PO DVT prophylaxis: Heparin 5000U SQ q12H FEN/GI: NPO due to mental status, NSS @ 200cc/hr, Famotidine IV Dispo: Telemetry CODE: FULL Admission and Anticipated Discharge Date Admission Date: February 16, 2021 Supervising Physician Co-Signing Physician Notes I personally examined the patient and verified all nevarez points of history and exam, discussed case, and agree with decision making with Dr Valle. No HPI or review of systems obtainable on multiple visits today. Vitals noted, in general she is lying in bed appears to be breathing comfortably in no overt distress. She does moan and withdraw and grimace to sternal rub symmetrically. Cardio is regular somewhat distant no rubs murmurs gallops. Lungs are diminished air entry throughout but equal air entry overall no rales rhonchi or wheezes good effort. Equal muscle tone at rest. Pupils equal round and reactive. Altered mental statusbiggest differential is toxic encephalopathy from medications. Continue to follow closely. Low threshold for repeat ABGs given concern on hypercapniafortunately thus far on 2 checks today she has not been hypercapnic. Acute renal failuremost likely prerenal given that it sounds like she was not doing well at home for several days prior to admission. There was concern about obstructive given how much urine she had whenever Lizama was initially placed, however obstructive certainly would be odd in a female. Renal ultrasound fortunately does not support obstructive pathology. Creatinine is starting to improve with IV fluids. Continue fluids, continue to follow closely. Cerebrovascular diseaseoccipital lobe stroke of questionable acuityit seems that it could have possibly been 3 or 4 days ago, and yet MRI makes it sound like it may have been older. At any rate she warrants a cerebrovascular work-up and treatment, the only real issue at play here would be the academic question of acuity for her most recent stroke. Work-up/secondary risk reduction. DVT prophylaxisheparin subcu Subjective Subjective unobtainable due to mental status. Maintaining airway and satting well on 6L oxymask. Review of Systems Review of Systems: Unobtainable due to reduced consciousness Physical Exam Constitutional: + altered mental status (obtunded) Eyes: PERRL Respiratory: normal respiratory effort, lungs clear to auscultation Cardiovascular: RRR, no murmur, no edema Gastrointestinal (Abdomen): Inspection/Auscultation: abdomen normal to inspection and normal bowel sounds Skin: no rashes, warm and dry Neurologic: + obtunded Results & Data Results & [facility] ([facility]) Vital Signs (Past 12 Hours) Vital Signs Temp Pulse Pulse Pulse Resp BP BP 02/16/21 05:30 36.5 C 85 22 99/51 L 02/16/21 04:59 87 20 112/58 L 02/16/21 03:52 99 H 24 178/80 H 02/16/21 01:45 103 H 26 H 157/108 H 02/16/21 01:26 02/16/21 01:10 83 16 132/90 02/15/21 23:59 36.6 C 100 H 16 111/58 L Pulse Ox 02/16/21 05:30 98 02/16/21 04:59 92 02/16/21 03:52 96 02/16/21 01:45 98 02/16/21 01:26 100 02/16/21 01:10 99 02/15/21 23:59 96 Resident Activity Tracking Resident Involvement: Resident Care Provided Care Provided: Adult Hospital Medicine (1) Hypertension Hypertension type: unspecified Qualified Code(s): I10 - Essential (primary) hypertension
[2021-02-16 09:21] LABS: Chol HDL Ratio 3; Cholesterol 156 mg/dl (0-200); HDL Cholesterol 50 mg/dl; LDL Cholesterol Calculated 95 mg/dl; Triglycerides 53 mg/dl (0-150); VLDL Cholesterol 11 mg/dl
[2021-02-16 09:28] LABS: Estimated Average Glucose 120 mg/dl; Hemoglobin A1C 5.8 % (4.5-5.6)
--- NOTE | 2021-02-16 10:12 | Magnetic Resonance Report ---
MR angio head wo con HISTORY: 65 years-old Female CVA acute stroke like symptoms COMPARISON: Brain MRI of same day TECHNIQUE: MRA of the head was obtained utilizing 3-D [id number] sequencing with MIP reformats. A ll measurements were obtained according to NASCET criteria. FINDINGS: Mildly motion degraded exam. Imaged internal carotid arteries are patent. There is mild luminal narro wing of the left M1 segment. The middle and anterior cerebral arteries are otherwise unremarkable and patent. The distal vertebral arteries, basilar and posterior cerebral arteries are patent. blake gin of the left posterior cerebral artery. IMPRESSION: Motion degraded exam. Unremarkable MRA of the head. ACT 112: Negative or not required by law. The above report was generated using voice recognition software. It may contain grammatical, syntax o r spelling errors. Electronically signed by: Sancho Gipson M.D. 02/16/2021 10:10 AM
--- NOTE | 2021-02-16 11:04 | Ultrasound Report ---
US renal/blad retro comp HISTORY: 65 years-old Female ARF, retention, ?obstructive acute renal failure COMPARISON: CT abdomen and pelvis 12/23/2020 TECHNIQUE: Multiple real-time sonographic images of the kidneys and urinary bladder were obtained ass essing grayscale appearance and color flow FINDINGS: The right kidney measures 9.6 x 3.9 x 5.5 cm. The left kidney measures 8.9 x 4.8 x 5.3 cm. No renal c alculi or hydronephrosis. There is increased echogenicity of the bilateral renal parenchyma. Lizmaa catheter within a partially decompressed bladder. Mild associated urinary bladder wall thickeni ng. IMPRESSION: 1. No renal calculi or hydronephrosis. 2. Increased echogenicity of the kidneys suggestive of chronic medical renal disease. 3. Decompressed urinary bladder with Lizama catheter. ACT 112: Negative or not required by law. The above report was generated using voice recognition software. It may contain grammatical, syntax o r spelling errors. Electronically signed by: Sancho Gipson M.D. 02/16/2021 11:03 AM
[2021-02-16 11:39] LABS: BUN Creatinine Ratio 17.8 (10-20); Calcium 8.5 mg/dl (8.5-10.1); Creatinine Clr Calc Pharmacy 21.9 ml/min; Est GFR (African American) 22.9 ml/min; Est GFR (Non-African American) 19.8 ml/min; Potassium 5.3 mmol/L (3.5-5.1)
--- NOTE | 2021-02-16 12:52 | CT Scan Report ---
CT cervical spine wo con CT DOSE: 1544.64 mGycm CLINICAL HISTORY: 65 years-old Female with trauma. Acute post grammatical neck injury COMPARISON: Head CT of same day, CT cervical spine 01/15/2012 TECHNIQUE: Multiple axial CT images of t he cervical spine were obtained without contrast. A dose lowering technique was utilized adhering to the principles of ALARA. FINDINGS: There is developmental incomplete bony fusion involving the anterior and posterior arch of C1 with pr ogressive associated osteophytic spurring. Moderate intervertebral disc space narrowing at C4-C5. Deg enerative partial bony fusion involves the left C4-C5 facets. There is severe multilevel facet arthro sis. Demineralized appearance of the bones. Mild to moderate intervertebral disc space narrowing with grade 1 anterolisthesis at C5-C6, likely on a degenerative basis, progressed from comparison. No acu te fracture or subluxation. Study is mildly motion degraded. Mild dextroscoliosis. Multilevel neural foraminal narrowing. Calcified plaque of the carotid arteries. The lung apices are clear without pneumothorax. No preverte bral edema. IMPRESSION: No acute fracture or subluxation. ACT 112: Negative or not required by law. The above report was generated using voice recognition software. It may contain grammatical, syntax o r spelling errors. Electronically signed by: Sancho Gipson M.D. 02/16/2021 12:51 PM
--- NOTE | 2021-02-16 13:31 | Electrocardiogram Report ---
Test Reason : Blood Pressure : / mmHG Vent. Rate : 098 BPM Atrial Rate : 098 BPM P-R Int : 162 ms QRS Dur : 084 ms QT Int : 350 ms P-R-T Axes : 030 025 040 degrees QTc Int : 446 ms Normal sinus rhythm Normal ECG When compared with ECG of 24-DEC-2020 13:11, No significant change was found Confirmed by Bronson Pablo ([id number]) on 02/16/2021 1:31:25 PM Referred By: REFERRED SELF Confirmed By:Bronson Pablo
--- NOTE | 2021-02-16 13:35 | Magnetic Resonance Report ---
MRI OF THE BRAIN WITHOUT CONTRAST CLINICAL HISTORY: CVA COMPARISON STUDY: September 12, 2009 FINDINGS: Sagittal T1, axial diffusion, proton density and T2 weighted axial, coronal FLAIR, and axial T1-weigh jayashree images were acquired. Few areas of encephalomalacia involving left parietal and bilateral occipital region were not seen on September 12, 2009, shows high signal on ACD map likely representing old infarct. Axial diffusion-weighted images reveal no evidence of acute or subacute infarction. Minimal atrophic changes of brain parenchyma are seen and associated with ex vacuo dilatation of vent ricles. Few areas of high T2 signal are seen within right and left basal ganglia likely representing small la cunar infarct or prominent perivascular spaces. Mild motion artifact on the T2 FLAIR sequence slightly limits evaluation. Proton density T2-weighted and FLAIR images reveal scattered foci of increased T2 signal within the w jose manuel matter, likely on a small vessel basis. Also there are confluent areas of high T2 FLAIR signal w ithin subcortical and periventricular white matter within areas of encephalomalacia likely representi ng gliosis. There are no abnormal flow voids. IMPRESSION: No acute intracranial hemorrhage, no midline shift or space occupying lesions. No areas of restricted diffusion to suggest acute ischemia/infarct. Chronic small vessel disease and mild atrophic changes of brain parenchyma. Multiple areas of encephalomalacia likely represent sequela from prior infarct. ACT 112: Negative or not required by law. The above report was generated using voice recognition software. It may contain grammatical, syntax o r spelling errors. Electronically signed by: Bernie Sevilla DO 02/16/2021 1:33 PM
--- NOTE | 2021-02-16 15:14 | Communication Note ---
Date of Service: February 16, 2021 Psychiatry will continue to follow case and evaluate patient when she is more able to participate in interview. I agree with holding her psychiatric medi cations for now as the metabolic encephalopathy is being treated.
[2021-02-16 17:15] LABS: Base Excess ABG -5.5 mEq/L (-9-1.8); HCO3 ABG 20 mmol/L (19-24); Oxygen Saturation ABG 99.4 % (90-95); PCO2 ABG 39 mmHg (35-46); PO2 ABG 190 mmHg (80-95); pH ABG 7.33 (7.35-7.45)
[2021-02-16 17:16] LABS: Allen Test Pos (Pos)
[2021-02-16 17:36] LABS: BUN Creatinine Ratio 17.9 (10-20); Calcium 8.5 mg/dl (8.5-10.1); Creatinine Clr Calc Pharmacy 26.6 ml/min; Est GFR (African American) 29.1 ml/min; Est GFR (Non-African American) 25.1 ml/min; Potassium 5.3 mmol/L (3.5-5.1)
[2021-02-16] MEDS ORDERED: Nursing to Pharmacy Communication SCH (19:15)
[2021-02-16] MEDS: HEPARIN SOD 5,000 UNIT/0.5 ML VIAL SQ SCH (21:18)
--- NOTE | 2021-02-16 22:16 | Communication Note ---
Date of Service: February 16, 2021 Contacted by nursing at 5:36 am that patient arrived at room from ER and discussed on phone that they were concerned about her level of responsiveness, whether she needed more narcan, and asked me to come up to evaluate the patient. Upon evaluation, patient was somnolent, responsive and recoiling to pain but not command. Initiating her own breaths, satting 100% on 10L oxymask, and had regular pulse. Her breathing was impaired when her head rolled forward to have her chin on her chest, and improved when manually held back with her chin extended in the air in sniffing position. I requested that we keep her head in sniffing position to help maintain a straight and open airway, with lateral support of towels/blankets so her head would not roll sideways. Her bed was adjusted so that she was sitting up at almost 90 degrees, with her head supported. I requested we get an abg to assess acid base status and need for pressure support, and asked nursing to notify me when the abg had returned while I tended to other patients. ABG returned shortly after 6:10am, revealing a nongap metabolic acidosis without hypercarbia, most likely secondary to her acute renal failure. I advised nursing to ensure she remained positioned as previously with goal O2 sat >95%, and keep fluids running. Approximately 15 minutes later around 6:30am, nursing messaged again with concern that patient was not protecting their airway, had no gag reflex, and had worsening belly breathing. I noted that patient had received multiple non- narcotic sedating medications in the ER that were adding to her uremic encephalopathy and stroke, and would come up to evaluate her again. Upon re-evaluation, she was sitting up in bed in the same position we had placed her, loudly snoring. oxygen sat 100% on 10L oxymask, still responsive to pain, appearing comfortable and breathing steadily on her own. I noted that given her risk for aspiration i wanted to avoid putting CPAP on her unless necessary, but she appeared to be stable. Given that nursing was still concerned, I noted that there was a standing intranasal narcan PRN order in case her status worsened and she would need a reversal agent, though she had already received narcan prior to the ER and had only received 50 mcg of fentanyl since. Attempted to reassure that resolution of encephalopathy would require time and continuation of fluids, but patient appeared stable and did not need intervention at this time.
[2021-02-17] MEDS: INSULIN ASPART 100 UNITS/ML 3 ML PEN SC SCH ×5 (00:52→20:38)
[2021-02-17] MEDS: SODIUM CHLORIDE 0.9% 1000ML 1,000 ML IV SCH ×4 (00:52→18:04)
[2021-02-17] MEDS: cefTRIAXone SODIUM 1,000 MG in DEXTROSE 5% 50 ML IV SCH (06:08)
[2021-02-17 06:47] LABS: Basophils # (auto) 0.05 K/uL (0-0.2); Basophils % (auto) 0.6 %; Eosinophils # (auto) 0.16 K/uL (0-0.5); Hematocrit (blood only) 32.6 % (37-47); Hemoglobin 9.6 g/dL (12.0-16.0); Immature Granulocytes # (auto) 0.01 K/uL (0.00-0.02); Immature Granulocytes % (auto) 0.1 %; Lymphocytes # (auto) 1.13 K/uL (1.2-3.4); Lymphocytes % (auto) 14.5 %; Mean Corpuscular Hgb Conc 29.4 g/dL (32-36); Mean Corpuscular Volume 81.5 fL (80-100); Mean Platelet Volume 9.3 fL (7.4-10.4); Monocytes # (auto) 0.72 K/uL (0.11-0.59); Monocytes % (auto) 9.2 %; Neutrophils # (auto) 5.74 K/uL (1.4-6.5); Neutrophils % (auto) 73.6 %; Platelet Count 321 K/uL (130-400); RDW Coefficient of Variation 17.6 % (11.5-14.5); RDW Standard Deviation 53.1 fL (36.4-46.3); White Blood Count 7.81 K/uL (4.8-10.8)
--- NOTE | 2021-02-17 06:47 | Hospitalist Progress Note ---
Date of Service February 17, 2021 Assessment & Plan (1) Metabolic encephalopathy: Plan: Nevin Suarez is a 65-year-old female with PMH of CKD3, DM2, Peripheral neuropathy, anxiety/depression, GERD who was brought to [facility] due to altered mental status 2/2 taking 's opiates for chronic low back pain, combined w/ polypharmacy for agitation in the ED (haldol, ativan, and fentanyl). Mentation is improving and she is back on room air. Altered Mental Status, likely secondary to toxic encephalopathy, improving - Likely secondary to narcotic overdose and polypharmacy required for agitation in ED, see above. - CT head and MRI brain not suggestive of acute stroke. MRA head negative. - Troponin negative, EKG with NSR, Echo pending - Neuro consult: no evidence for acute stroke. Stop Plavix. Restart daily baby ASA. - Avoid sedating medications - Canceled psych consult as patient denies suicidal ideation or overdose attempt. NATTY on CKD stage III, improving: Creatinine 3.34 upon admission, with baseline around 1.5 - Likely pre-renal in the setting of AMS at home - NSS decreased from 200/hr to 100/hr to avoid fluid overload. Continue 100/hr while PO intake is small while still somnolent - Follow BMP Cerebrovascular Disease: - Signs of older strokes on brain imaging - As such, despite likelihood that stroke is not an acute concern, she will require medical optimization going forward - Per neuro recs above, plan for ASA 81mg daily. High-intensity statin once 40mg patient more alert and can tolerate PO. LDL 95, w/ goal of 70. - A1c 5.8, DM2 well controlled - Non-smoker Hypomagnesemia - repleted, check Mg in AM Chronic Issues: DM2: SSI, A1c 5.8 GERD: Famotidine 20mg IV BID->home PO Protonix HTN, Anxiety/Depression, Peripheral neuropathy: Will restart nonsedating home meds DVT prophylaxis: Heparin 5000U SQ q12h FEN/GI: NSS 100/hr. Full liquid diet. DM2, HH. Dispo: PCU. Potential dispo 02/18. CODE: FULL (2) Narcotic overdose: (3) Acute urinary retention: (4) Hyperkalemia, diminished renal excretion: (5) Acute kidney injury superimposed on chronic kidney disease: (6) Hypertension: (7) Diabetes type 2, uncontrolled: (8) GERD (gastroesophageal reflux disease): (9) Anxiety: (10) Depression: (11) Hypomagnesemia: Admission and Anticipated Discharge Date Admission Date: February 16, 2021 Supervising Physician Co-Signing Physician Notes I personally examined the patient and verified all nevarez points of history and exam, discussed case, and agree with decision making with Dr Senior feeling good eating ok notes that she took her 's pain medicine because she had an acute back strain trying to lift him, she also had knee pain at the same time. All of that has resolved. She seems rather sheepish and embarrassed about the situation, and openly and clearly states that she was not at all trying to hurt herself or kill herself, just that she had a lot of pain, she was struggling to take care of her , and just was trying to maintain as best she could. Vitals noted, awake and alert somewhat fatigued appearing but otherwise no distress. HEENT normocephalic atraumatic mucous membranes moist. Breathing unlabored no accessory muscle use good effort. Skin shows no rashes no pallor or icterus. Neuro shows no focal deficits. Altered mental statusbiggest differential is toxic encephalopathy from medications. Given the pace of resolution this seems to have been the case. Essentially resolved. Acute renal failuremost likely prerenal and has improved with fluids. Follow basic metabolic panel into tomorrow. Cerebrovascular diseaseoccipital lobe stroke of questionable acuityand with hindsight, it seems all of her cerebrovascular disease was old. For clarificati on, after further review it does not appear that she had any acute stroke at this time. She does require intervention/secondary risk reduction for cerebrovascular disease since she has been found to have old strokes, but nothing was new. DVT prophylaxisheparin subcu probably home tomorrow with ongoing improvement Subjective Per overnight team, patient becoming more awake. Per nursing, bsg 68x1 in AM. This AM, patient denies pain. + mild confusion. No SOB/cp. She feels more awake than yesterday. PM: Patient reconfirms that she had taken a "small amount" of her 's opiates for her chronic low back pain. She denies any attempt at overdosing. +feel shaky. Review of Systems Review of Systems: All systems reviewed & are unremarkable except as noted in HPI & below Physical Exam Physical Exam: General: A&Ox4. NAD. Cooperative. Somnolent but arousable HEENT: Atraumatic, normocephalic. PERRL Pulm: CTAB. -wheezes, -rales, -rhonchi. Symmetrical chest rise. No respiratory distress. Cardiac: RRR, -mrg. No LE edema. Abdominal: Nontender, nondistended, soft. Obese abdomen. Results & Data Results & Data ([facility]) Vital Signs (Past 12 Hours) Vital Signs pulse newly 90s overnight. 172/85x1. 6L oxymask weaned to room air Temp Pulse Pulse Resp BP Pulse Ox 02/17/21 03:33 37.0 C 99 H 18 172/85 H 97 02/16/21 23:15 36.7 C 92 H 16 137/72 99 02/16/21 23:09 92 H 02/16/21 19:00 36.9 C 81 18 139/81 98 Laboratory Results cbc stable. Hb stable 9.6. Na 144 stable. K 5.3->5.0. Cr 2.46->2.02->1.51. Mg 1.7L. Ca 8.4 no alb. Diagnostic Findings 02/16 renal US neg for obstruction. Resident Activity Tracking Resident Involvement: Resident Care Provided Care Provided: Adult Hospital Medicine (1) Hypertension Hypertension type: unspecified Qualified Code(s): I10 - Essential (primary) hypertension
[2021-02-17 07:02] LABS: Partial Thromboplastin Time 25.1 Seconds (21.0-31.0); Prothrombin Time 10.4 Seconds (9.0-12.0)
[2021-02-17 07:25] LABS: BUN Creatinine Ratio 15.8 (10-20); Calcium 8.4 mg/dl (8.5-10.1); Creatinine Clr Calc Pharmacy 35.6 ml/min; Est GFR (African American) 41.3 ml/min; Est GFR (Non-African American) 35.6 ml/min; Magnesium 1.7 mg/dl (1.8-2.4)
[2021-02-17] MEDS: FAMOTIDINE 20 MG in SYRINGE 3 ML IV SCH ×2 (09:23→20:38)
[2021-02-17] MEDS: HEPARIN SOD 5,000 UNIT/0.5 ML VIAL SQ SCH ×2 (09:24→20:37)
--- NOTE | 2021-02-17 10:26 | Neurology Progress Note ---
Date of Service February 17, 2021 Assessment & Plan (1) Acute CVA (cerebrovascular accident): (2) Metabolic encephalopathy: Plan: This patient had no acute stroke. She did have old left-sided infarcts as noted on imaging. She is markedly improved with her mental status today being much more awake and alert and closer to baseline. She has no focal findings on exam today. She has no complaints. Therefore, she had an encephalopathy likely secondary to opiate ingestion with polypharmacy. She received quite a number of medications in the emergency room as outlined. Recommendations: 1. Avoid sedating medication if possible. 2. restart 81 mg aspirin daily. There is no need for clopidogrel. 3. No additional neurologic recommendations to make at this time, please contact me if I can be of further assistance. overall, I spent a total of 25 minutes with this case including review of records, direct evaluation the patient at bedside, and discussion of the case with the patient and RN at bedside, and Dr. Le including differential diagnosis and treatment options. Admission and Anticipated Discharge Date Admission Date: February 16, 2021 Subjective Patient is feeling much better this morning. She has no pain or headache. MRI of the brain showed no acute stroke. MR angiography of the head was normal. Laboratory studies today show some anemia and an elevated BUN and creatinine. Apparently the patient admits to taking her 's pain medication because her back hurt. Results & Data ([facility]) Vital Signs (Past 12 Hours) Vital Signs Temp Pulse Pulse Resp BP BP Pulse Ox 02/17/21 08:04 37.4 C 90 16 154/81 H 98 02/17/21 07:56 84 02/17/21 03:33 37.0 C 99 H 18 172/85 H 97 02/16/21 23:15 36.7 C 92 H 16 137/72 99 02/16/21 23:09 92 H Exam (Neuro) Physical Exam: Patient is awake and alert. Her speech is without aphasia or dysarthria. Mood seems normal and affect seems appropriate. She is following one-step commands well. She is sitting up in bed eating. Coordination is normal in the arms. She moves all 4 limbs symmetrically. Extraocular eye muscles are intact without nystagmus. She has no facial droop. PG Care Time/CCT Total # of Minutes Spent Total Time Spent with Patient: Total time spent is greater than 50% in coordination of care (as documented) at patient's floor/unit and/or counseling patient: Coding Level of Care Code 36775 Subseq Hosp Care Lvl 2 Diagnoses Acute CVA (cerebrovascular accident) I63.9 Metabolic encephalopathy G93.41 Time Spent (min) 25
[2021-02-17] MEDS ORDERED: Nursing to Pharmacy Communication SCH (10:30)
[2021-02-17] MEDS ORDERED: MAGNESIUM SULFATE / D5W 1 GM/100 ML BAG IV ONE (17:15)
--- NOTE | 2021-02-17 18:48 | Billing Data ---
Date of Service February 17, 2021 Coding Level of Care Code 92930 Subseq Hosp Care Lvl 3
[2021-02-18] MEDS: SODIUM CHLORIDE 0.9% 1000ML 1,000 ML IV SCH (03:18)
--- NOTE | 2021-02-18 06:58 | Hospitalist Progress Note ---
Date of Service February 18, 2021 Assessment & Plan (1) Metabolic encephalopathy: Plan: Nevin Suarez is a 65-year-old female with PMH of CKD3, DM2, Peripheral neuropathy, anxiety/depression, GERD who was brought to [facility] due to altered mental status 2/2 taking 's opiates for chronic low back pain, combined w/ polypharmacy for agitation in the ED (haldol, ativan, and fentanyl). Mentation is improving and she is back on room air. Altered Mental Status, likely secondary to toxic encephalopathy, improving - Likely secondary to narcotic overdose and polypharmacy required for agitation in ED, see above. - CT head and MRI brain not suggestive of acute stroke. MRA head negative. - Troponin negative, EKG with NSR, Echo pending - Neuro consult: no evidence for acute stroke. Stop Plavix. Restart daily baby ASA. - Avoid sedating medications - Canceled psych consult as patient denies suicidal ideation or overdose attempt. NATTY on CKD stage III, improving: Creatinine 3.34 upon admission, with baseline around 1.5 - Likely pre-renal in the setting of AMS at home - NSS decreased from 200/hr to 100/hr to avoid fluid overload. Continue 100/hr while PO intake is small while still somnolent - Follow BMP Cerebrovascular Disease: - Signs of older strokes on brain imaging - As such, despite likelihood that stroke is not an acute concern, she will require medical optimization going forward - Per neuro recs above, plan for ASA 81mg daily. High-intensity statin once 40mg patient more alert and can tolerate PO. LDL 95, w/ goal of 70. - A1c 5.8, DM2 well controlled - Non-smoker Hypomagnesemia - repleted, check Mg in AM Chronic Issues: DM2: SSI, A1c 5.8 GERD: Famotidine 20mg IV BID->home PO Protonix HTN, Anxiety/Depression, Peripheral neuropathy: Will restart nonsedating home meds DVT prophylaxis: Heparin 5000U SQ q12h FEN/GI: NSS 100/hr. Full liquid diet. DM2, HH. Dispo: PCU. Potential dispo 02/18. CODE: FULL (2) Narcotic overdose: (3) Acute urinary retention: (4) Hyperkalemia, diminished renal excretion: (5) Acute kidney injury superimposed on chronic kidney disease: (6) Hypertension: (7) Diabetes type 2, uncontrolled: (8) GERD (gastroesophageal reflux disease): (9) Anxiety: (10) Depression: (11) Hypomagnesemia: Admission and Anticipated Discharge Date Admission Date: February 16, 2021 Subjective Feels well. No complaints. Feels ready for home. Requesting PO ativan for anxiety. Patient states that she will be taking cab home upon discharge and will not be driving home. Review of Systems Review of Systems: All systems reviewed & are unremarkable except as noted in HPI & below Physical Exam Physical Exam: General: A&Ox4. NAD. Cooperative. Fully awake. HEENT: Atraumatic, normocephalic. EOMI Pulm: CTAB. -wheezes, -rales, -rhonchi. Symmetrical chest rise. No respiratory distress. Cardiac: RRR, -mrg. Abdominal: Nontender, nondistended, soft. Results & Data Results & Data ([facility]) Vital Signs (Past 12 Hours) Vital Signs systolic 150s-160s, w/ max of 185/81. Temp Pulse Pulse Resp BP Pulse Ox 02/18/21 03:42 36.8 C 70 17 166/81 H 96 02/18/21 00:01 81 02/17/21 23:27 36.9 C 72 20 159/87 H 96 02/17/21 20:33 85 157/78 H 02/17/21 19:00 36.6 C 80 18 185/81 H 90 Resident Activity Tracking Resident Involvement: Resident Care Provided Care Provided: Adult Hospital Medicine (1) Hypertension Hypertension type: unspecified Qualified Code(s): I10 - Essential (primary) hypertension
[2021-02-18 07:46] LABS: Basophils # (auto) 0.05 K/uL (0-0.2); Basophils % (auto) 0.7 %; Eosinophils # (auto) 0.22 K/uL (0-0.5); Hemoglobin 9.1 g/dL (12.0-16.0); Immature Granulocytes # (auto) 0.01 K/uL (0.00-0.02); Immature Granulocytes % (auto) 0.1 %; Lymphocytes # (auto) 1.61 K/uL (1.2-3.4); Lymphocytes % (auto) 22.2 %; Mean Corpuscular Hemoglobin 24.6 pg (25-34); Mean Corpuscular Hgb Conc 31.4 g/dL (32-36); Mean Corpuscular Volume 78.4 fL (80-100); Mean Platelet Volume 9.4 fL (7.4-10.4); Monocytes # (auto) 0.59 K/uL (0.11-0.59); Monocytes % (auto) 8.1 %; Neutrophils # (auto) 4.78 K/uL (1.4-6.5); Neutrophils % (auto) 65.9 %; Platelet Count 271 K/uL (130-400); RDW Coefficient of Variation 17.4 % (11.5-14.5); White Blood Count 7.26 K/uL (4.8-10.8)
[2021-02-18 08:01] LABS: BUN Creatinine Ratio 12.7 (10-20); Calcium 8.4 mg/dl (8.5-10.1); Creatinine Clr Calc Pharmacy 39.3 ml/min; Est GFR (African American) 46.5 ml/min; Est GFR (Non-African American) 40.1 ml/min; Potassium 4.5 mmol/L (3.5-5.1)
[2021-02-18] MEDS: POLYETHYLENE (MIRALAX) 17 GM PACK PO SCH ×2 (08:55→09:03)
[2021-02-18] MEDS: buPROPion SR 150 MG TABCR PO SCH ×2 (08:56→09:02)
[2021-02-18] MEDS: HEPARIN SOD 5,000 UNIT/0.5 ML VIAL SQ SCH (08:57)
[2021-02-18] MEDS ORDERED: PANTOprazole 40 MG TAB PO SCH (09:00)
[2021-02-18] MEDS: INSULIN ASPART 100 UNITS/ML 3 ML PEN SC SCH ×2 (09:00→12:01)
[2021-02-18] MEDS ORDERED: ASPIRIN 81 MG ECTAB PO SCH (09:00)
[2021-02-18] MEDS ORDERED: lisinopril 20 MG TAB PO SCH (09:00)
[2021-02-18 09:02] LABS: Codeine Urine NEGATIVE ng/mL (<50); Hydrocodone Urine NEGATIVE ng/mL (<50); Hydromor Urine 1360 ng/mL (<50); Morphine Urine NEGATIVE ng/mL (<50); Norhydrocodone Conf Ur NEGATIVE ng/mL (<50); Noroxycodone Urine NEGATIVE ng/mL (<50); Oxycodone Urine NEGATIVE ng/mL (<50); Oxymorph Urine NEGATIVE ng/mL (<50)
[2021-02-18] MEDS ORDERED: LORazepam 0.5 MG TAB PO STA (11:33)
[2021-02-18] MEDS ORDERED: STROKE PATIENT DISCHARGE STA (12:29)
--- NOTE | 2021-02-18 16:54 | Discharge Summary ---
Date of Service February 18, 2021 Admission HPI Per Admitting Provider Chief Complaint: The patient presents to the emergency department with altered mental state, multiple falls over the past couple days, uncontrollable tremors, confusion and agitation, unable to stay still, thought to have taken some of her husbands oxycodone, and had partially improved mentation en route on the ambul ance with administration of intranasal Narcan Primary Care Provider: Pantera Matthews, CASEY, COURTNEY The patient is a 65-year-old female with a past medical history including CKD stage III, diabetes mellitus uncontrolled, hypertension, peripheral neuropathy, anxiety with depression and GERD. She presents as noted above. She is not able to contribute to her HPI or review of systems at the time of my assessment. She was given the following medications by the emergency department: NSS 1 L, gabapentin 300 mg p.o., lorazepam 2 mg sublingual, haloperidol 2.5 mg IV, lorazepam 1 mg IV, fentanyl 50 mcg IV, lorazepam 2 mg IV and then haloperidol 5 mg IV. The patient continued to be in continual motion, unable to lay still and appeared to be in discomfort. I then asked that a Lizama cath to be placed. The patient immediately put out 1 L of urine in 10 minutes, and continue to empty urine beyond that. She was then no longer restless, no longer in pain, and was resting comfortably. Urine drug screen in the emergency department was positive for opiates, with subtype pending. Abnormal laboratories: Hemoglobin 9.4, potassium 5.8, creatinine 3.34, BUN 52, glucose 131. The patient was COVID-19 negative Admission Exam Per Admitting Provider The patient is sedated, agitated and unresponsive. Well developed and well nourished, normocephalic and atraumatic, lying in bed and in mild to moderate acute distress. HEENT--PERRL, EOMI, mucous membranes and oropharynx dry. Neck--supple. No JVD. No bruits. Thyroid normal, trachea midline, no adenopathy. Heart--normal S1 and S2. No murmurs, rubs or gallops. Lungs--clear bilaterally, no respiratory distress, no accessory muscle use. Abdomen--normal bowel sounds and soft. Nontender. Bladder easily palpable and distended Extremities--no cyanosis or clubbing. No edema. Dermatologic--skin is dry. A few scattered ecchymoses Neurologic--cranial nerves II through XII grossly intact. Rheumatologic--limited exam Psychiatric--sedated. Principal Diagnosis accidental narcotics overdose Discharge Exam General: A&Ox4. NAD. Cooperative. Fully awake. HEENT: Atraumatic, normocephalic. EOMI Pulm: CTAB. -wheezes, -rales, -rhonchi. Symmetrical chest rise. No respiratory distress. Cardiac: RRR, -mrg. Abdominal: Nontender, nondistended, soft. Discharge Data Allergies Allergy/AdvReac Type Severity Reaction Status Date / Time No Known Allergies Allergy Unverified 12/24/20 14:32 Consultations 02/16/21 04:03 ED Decision to Admit Stat 02/16/21 05:18 Consult Neurology Routine Ordered Studies 02/18/21 07:11 02/18/21 07:[address] 02/16/21 01:[address] NONCONTRAST Impression: 1. Motion artifact. Subacute infarct within the left occipital lobe measuring 3 cm. 2. Additional old infarcts as described above. Cervical Spine CT 02/16/21 03:24 CT cervical spine wo con IMPRESSION: No acute fracture or subluxation. Brain MRI 02/16/21 05:17 MRI OF THE BRAIN WITHOUT CONTRAST IMPRESSION: No acute intracranial hemorrhage, no midline shift or space occupying lesions. No areas of restricted diffusion to suggest acute ischemia/infarct. Chronic small vessel disease and mild atrophic changes of brain parenchyma. Multiple areas of encephalomalacia likely represent sequela from prior infarct. Head MRA 02/16/21 05:20 MR angio head wo con IMPRESSION: Motion degraded exam. Unremarkable MRA of the head. Renal Ultrasound 02/16/21 09:30 US renal/blad retro comp IMPRESSION: 1. No renal calculi or hydronephrosis. 2. Increased echogenicity of the kidneys suggestive of chronic medical renal disease. 3. Decompressed urinary bladder with Lizama catheter. Hospital Course (1) Metabolic encephalopathy: Nevin Suarez is a 65-year-old female with PMH of CKD3, DM2, Peripheral neuropathy, anxiety/depression, GERD who was brought to [facility] on 02/16/21 due to altered mental status 2/2 taking 's opiates (took 1 tsp of liquid Dilaudid) for chronic low back pain, combined w/ polypharmacy for agitation in the ED (haldol, ativan, and fentanyl). Mentation returned to baseline on day of dispo 02/18/21. Altered Mental Status, likely secondary to toxic encephalopathy, resolved - Likely secondary to narcotic overdose and polypharmacy required for agitation in ED, see above - During this admission, held sedating home meds (Seroquel, Effexor, hydroxyzine, trazodone) until patient's sedation resolved - CT head and MRI brain not suggestive of acute stroke. MRA head negative. - Neuro consult: no evidence for acute stroke. Stop Plavix (started in ED). Restarted daily baby ASA. - Patient denied suicidal ideation or overdose attempt. - Counseled on not taking medications not prescribed for her NATTY on CKD stage III, stable Creatinine 3.34 upon admission, with baseline around 1.5 - Likely pre-renal in the setting of AMS at home - check BMP in 1 month Cerebrovascular Disease: - Signs of older strokes on brain imaging, no acute stroke - A1c 5.8, DM2 well controlled - Non-smoker Chronic Issues: DM2: SSI, A1c 5.8 GERD: Famotidine 20mg IV BID->home PO Protonix HTN, Anxiety/Depression, Peripheral neuropathy: Will restart home meds, but recommend reconciling to reduce sedating meds if possible. (2) Narcotic overdose: (3) Acute urinary retention: (4) Hyperkalemia, diminished renal excretion: (5) Acute kidney injury superimposed on chronic kidney disease: (6) Hypertension: (7) Diabetes type 2, uncontrolled: (8) GERD (gastroesophageal reflux disease): (9) Anxiety: (10) Depression: (11) Hypomagnesemia: Total Time Total Time Spent Total Time Spent (In Minutes): <30 Discharge Plan Discharge Items Patient Disposition: Home - Self-Care Reason For Visit: ALTERED MENTAL STATUS Discharge Diagnosis: altered mental status Activity: Per Instructions section Non-emergency contact: Primary Care Provider Call non-emergency contact if: you have any medication questions, your symptoms worsen and you have a fever Follow-up/Referrals: Pantera Matthews III, CRNP [Primary Care Provider] - (hosp discharge followup within 1 week) Diet: Regular Addtl Attending Provider Instructions: You were admitted to [facility] for altered mental status on 02/16/21 and were discharged home on 02/18/21. The cause of your symptoms was thought to be from excessive sedating medications. Head and neck imaging were done to rule out acute stroke, fractures, and brain bleed and did not show these . Your mentation and severe fatigue improved and by the day of discharge home, you felt back to your normal. Please follow up with your primary care doctor within 1 week for routine hospital follow up. You may resume your other home medications. You are on multiple home medications that can cause sedation, specifically the hydroxyzine, Seroquel, and trazodone. Gabapentin and venlafaxine may as well. Discuss with your PCP regarding reducing doses if possible. Notify your doctor if you develop and confusion, sleepiness, chest pain, shortness of breath, fevers/chills, or other symptoms that concern you. Visit the ED if symptoms are of an urgent nature or severely concerning. Pending Studies at Discharge: No Stand-Alone Forms: Medications to Prevent Stroke, [facility], Smoking Cessation Medications and DC Order Prescriptions: Continued lisinopril 20 mg tablet 20 mg PO QAM Qty: 90 RF: 1 pantoprazole 40 mg tablet,delayed release (DR/EC) 40 mg PO QAM Qty: 90 RF: 1 sennosides-docusate sodium [Senokot-S] 8.6-50 mg tablet 1 tab PO BID Qty: 180 RF: 1 gabapentin 100 mg capsule See Rx Instructions .ROUTE .COMPLEX Qty: 450 RF: 1 venlafaxine 75 mg capsule,extended release 24hr 75 mg PO QAM RF: 0 venlafaxine 150 mg capsule,extended release 24hr 150 mg PO QAM RF: 0 quetiapine 300 mg Tablet Extended Release 24 Hr 300 mg PO HS RF: 0 trazodone 150 mg Tablet 150 mg PO HS RF: 0 bupropion HCl 150 mg Tablet Sustained-Release 12 Hr 150 mg PO QAM RF: 0 hydroxyzine pamoate 25 mg Capsule 25 mg PO BID RF: 0 hydroxyzine pamoate 50 mg Capsule 50 mg PO HS RF: 0 loratadine [Allergy Relief (loratadine)] 10 mg tablet 10 mg PO QAM RF: 0 ondansetron 4 mg tablet,disintegrating 4 mg PO Q6H PRN (Reason: nausea and vomiting) Qty: 12 RF: 0 aspirin [Aspirin Low Dose] 81 mg tablet,delayed release (DR/EC) 81 mg PO QAM RF: 0 polyethylene glycol 3350 [Miralax] 17 gram/dose powder 17 g PO DAILY Qty: 510 RF: 0 Discharge Orders: Discharge Order (Routine); Ordered 02/18/21 Ordered By: Elan Senior Admission Data Admit Date/Time: 02/16/21 04:34 Attending Provider: Darvin Le Admit Provider: Silas Bell Primary Care Provider: Pantera Matthews III Other Providers: Silas Bell ; Huber Collins Other Interventions: Discharge Summary Assessment (RN) Last Done: 02/18/21 12:40 Supervising Physician Co-Signing Physician Notes I personally examined the patient and verified all nevarez points of history and exam, discussed case, and agree with decision making with Dr Senior Feeling better. Eating well. Very much wants to go home. Still sheepish about having taken her 's medicines "I should not have done that, and want again" (offered empathy and understanding given her situation at home and her abrupt onset of severe back pain, combined with her desire to continue to try to care for her ). When asking how much she took, she said "not much, may be a teaspoon"educated patient that, while I do not know the exact concentration of her 's narcotic, most of these medicines are somewhere between 0.25 mL - 1 mL per dose, meaning that a teaspoon was somewhere between 5-20 doses. She expressed good understanding of this with much surprise. Vitals noted, awake and alert somewhat fatigued appearing but otherwise no distress. HEENT normocephalic atraumatic mucous membranes moist. Breathing unlabored no accessory muscle use good effort. Skin shows no rashes no pallor or icterus. Neuro shows no focal deficits. Altered mental statusbiggest differential is toxic encephalopathy from medications. Given the pace of resolution this seems to have been the case. Essentially resolved. Acute renal failuremost likely prerenal and has improved with fluids. Outpatient follow-up Cerebrovascular diseaseoccipital lobe stroke of questionable acuityand with hindsight, it seems all of her cerebrovascular disease was old. For clarification, after further review it does not appear that she had any acute stroke at this time. She does require intervention/secondary risk reduction for cerebrovascular disease since she has been found to have old strokes, but nothing was new. Outpatient follow-up/secondary risk reduction DVT prophylaxisheparin subcu utilized while here Stable for home Resident Activity Tracking Resident Involvement: Resident Care Provided Care Provided: Adult Hospital Medicine
--- NOTE | 2021-02-18 17:51 | Billing Data ---
Date of Service February 18, 2021 Coding Level of Care Code D/C DAY MANAGEMENT <30 MINS
--- NOTE | 2021-02-19 17:40 | XCELERA ---
[id number]
== END 2021-02-18 13:20 | disposition home or self-care (01) ==
LOC: ED 23:45 → INTOOBSV 02-16 04:34 → 2S 02-16 04:34 → SUATTDRO 02-16 04:34 → 2S 02-16 05:09

== ENCOUNTER 2021-07-14 10:56 | Observation (INO) ==
--- NOTE | 2021-07-14 11:14 | Emergency Department Note ---
Impression & Plan NATTY (acute kidney injury), Ambulatory dysfunction ADMIT ED Provider Note HPI: The patient is a 65-year-old female who presents the emergency department for the second time in the past 24 hours over concern for weakness and falls. Patient was evaluated in the emergency department yesterday, at that time imaging and lab work were fairly reassuring and the patient was discharged home. She states that when she woke up this morning she again felt very weak, states she fell 3 times, states that she has some pain in her left knee, states she does believe she hit her head when she fell. She denies any loss of consciousness. Patient is a very poor historian, she is alert on arrival and saturating well on room air. ROS: -MSK: Ambulatory dysfunction -Neuro: Positional dizziness *10 point review systems was conducted and is otherwise negative unless stated above *Outpatient medications and allergy history reviewed PE: General: Alert, NAD, disheveled appearing HEENT: Normocephalic, bruise to the mid forehead without any open lacerations or wounds Eyes: Extraocular eye movement is intact, no scleral erythema Pulmonary: Clear to auscultation bilaterally, no wheezing Cardio: Regular rate and rhythm GI: Abdomen is soft, nontender : No suprapubic tenderness MSK: No evidence of trauma or malformation of the extremities, no edema Skin: No evidence of rash Neuro: Alert, no focal deficits Psychiatric: Cooperative satellite project site monitor: - An order was placed for continuous cardiac monitoring - Patient was noted to be in sinus rhythm with rate of 80 EKG: Rate: 81 Rhythm: Normal sinus rhythm Intervals: Within normal limits Time: 1135 ST changes: No ST elevation Medical Decision Making: Patient presented to the emergency department with multiple falls today, she was been evaluated in the emergency room multiple times over the past 3 days. On arrival here to the ED the patient is in no acute distress, her lab work is suggestive of acute kidney injury with creatinine elevation to 2.5 today, patient was given IV fluids in the ED. CT imaging of the head does not show any evidence of acute intracranial process, CT imaging of the cervical spine does not show any evidence of fracture. COVID-19 test is pending. I discussed the above findings with the patient and her brother who is now at the bedside, he is very concerned about her ambulatory status as she has been here in the ED 3 separate times over the past several days for falls. Patient recently had her and she lives at home alone. She is unable to accomplish her activities of daily living, she has been having difficulty feeding herself, has diminished appetite, she has been having difficulty cleansing herself as well. Given the patient's ambulatory dysfunction and issues with activities of daily living in addition to acute kidney injury I did discuss the case with the on- call hospitalist for [facility] physician group, Dr. Cyr, the patient will be admitted for further care and assessment for placement. Patient was admitted in stable condition. Diagnosis: 1. Acute kidney injury 2. Ambulatory dysfunction 3. Multiple falls 4. Forehead contusion Disposition: Admission Preet Warner DO Emergency Medicine Past Med/Surg History Medical History NATTY (acute kidney injury) Depression Hypertension Stroke Surgical History H/O tubal ligation No pertinent past surgical history Family History Denies family history of Ovarian cancer Prostate cancer Myocardial infarction Breast cancer Colorectal cancer Colonic polyp Social History Smoking Status: Never smoker Second Hand Exposure: No; Preferred Language: German Communication Ability: Unable Visual Impairment: No Limitations Hearing Ability: Normal Contour Grinder Required: No Beliefs That Will Affect Care: None marital status: Life Partner Current Living Situation: Spouse current occupational status: disabled How many Children do You have: 1 Feels Safe at Home: Yes Childhood Exposure to Second-Hand Smoke: No Dental Care, Regularly: No Physical Activity Frequency: Does not Exercise Seatbelt Use: always Sunscreen Use: No Assistive Devices: Glasses and Walker Allergies Allergies Allergy/AdvReac Type Severity Reaction Status Date / Time No Known Allergies Allergy Unverified 07/14/21 11:26 Home Meds Home Medications Medication Instructions Recorded Confirmed bupropion HCl 150 mg tablet,12 hr 150 mg PO PM 08/28/19 07/14/21 sustained-release hydroxyzine pamoate 25 mg capsule 25 mg PO BID 08/28/19 07/14/21 hydroxyzine pamoate 50 mg capsule 50 mg PO HS 08/28/19 07/14/21 quetiapine 300 mg tablet,extended 300 mg PO HS 08/28/19 07/14/21 release 24 hr trazodone 150 mg tablet 150 mg PO HS 08/28/19 07/14/21 venlafaxine 150 mg 150 mg PO QAM cap 11/19/19 07/14/21 capsule,extended release 24 hr venlafaxine 75 mg capsule,extended 75 mg PO QAM cap 11/19/19 07/14/21 release 24 hr acetaminophen 500 mg tablet 1,000 mg PO Q6H PRN 07/13/21 07/14/21 (Tylenol Extra Strength) gabapentin 100 mg capsule 300 mg PO PM 07/13/21 07/14/21 lisinopril 20 mg tablet 20 mg PO PM 07/13/21 07/14/21 lorazepam 1 mg tablet 1 mg PO BID PRN 07/13/21 07/14/21 pantoprazole 40 mg tablet,delayed 40 mg PO QAM PRN 07/13/21 07/14/21 release Previous Rx's Medication Instructions Recorded sennosides 8.6 mg-docusate sodium 1 tab PO BID #180 tab 12/22/20 50 mg tablet (Senokot-S) Results & Data (ED) Vital Signs Vital Signs - 24 hr 07/14/21 11:32 07/14/21 11:46 Temperature 36.4 C L Temperature Source Oral Pulse Rate 90 Pulse Rhythm Regular Pulse Strength Normal Respiratory Rate 21 Respiratory Effort / Characteristics Non-Labored Spontaneous Respiratory Depth Normal Respiratory Pattern Regular Blood Pressure 96/60 L Blood Pressure Mean 72 Blood Pressure Position Lying Pulse Oximetry 100 Oxygen Delivery Method Room Air Room Air Sepsis Recent Fever Within 48 Hours No Sepsis New/Unexplained Change in Mental Status N/A Sepsis Action Taken by Nursing No Action Required Laboratory Data Result diagrams: 07/14/21 12:16 07/14/21 12:16 Lab Results 07/14/21 07/14/21 07/14/21 Range/Units 12:16 12:16 12:16 WBC 8.43 (4.8-10.8) K/uL RBC 4.71 (4.2-5.4) M/uL Hgb 12.3 (12.0-16.0) g/dL Hct 38.2 (37-47) % MCV 81.1 (80-100) fL MCH 26.1 (25-34) pg MCHC 32.2 (32-36) g/dL RDW Std Deviation 45.9 (36.4-46.3) fL RDW Coeff of Chanelle 15.6 H (11.5-14.5) % Plt Count 286 (130-400) K/uL MPV 9.2 (7.4-10.4) fL Immature Gran % (Auto) 0.2 % Neut % (Auto) 64.1 % Lymph % (Auto) 26.1 % [place] % (Auto) 7.9 % Eos % (Auto) 1.2 % Baso % (Auto) 0.5 % Neut # (Auto) 5.40 (1.4-6.5) K/uL Lymph # (Auto) 2.20 (1.2-3.4) K/uL [place] # (Auto) 0.67 H (0.11-0.59) K/uL Eos # (Auto) 0.10 (0-0.5) K/uL Baso # (Auto) 0.04 (0-0.2) K/uL Immature Gran # (Auto) 0.02 (0.00-0.02) K/uL PT 11.1 (9.0-12.0) Seconds INR 1.1 (0.9-1.1) Sodium 137 (136-145) mmol/L Potassium 4.1 (3.5-5.1) mmol/L Chloride 107 (98-107) mmol/L Carbon Dioxide 22 (21-32) mmol/L Anion Gap 8 (3-11) BUN 39 H (6-23) mg/dl Creatinine 2.50 H D (0.6-1.2) mg/dl Est Cr Clr Drug Dosing 20.6 ml/min Est GFR ( Amer) 22.5 ml/min Est GFR (Non-Af Amer) 19.4 ml/min BUN/Creatinine Ratio 15.6 (10-20) Glucose 93 (70-99) mg/dl Lactate (0.4-2.0) mmol/L Calcium 9.2 (8.5-10.1) mg/dl Total Bilirubin 0.7 (0.2-1.0) mg/dl AST 11 L (13-39) U/L ALT 12 (7-52) U/L Alkaline Phosphatase 72 (34-104) U/L Total Creatine Kinase 67 (26-192) U/L Troponin I < 0.03 (0-0.04) ng/ml Total Protein 7.0 (6.0-8.3) gm/dl Albumin 4.1 (3.4-5.0) gm/dl Globulin 2.9 (2.5-4.0) gm/dl Albumin/Globulin Ratio 1.4 (0.9-2) Procalcitonin (0-0.5) ng/ml Urine Color Urine Appearance (Clear) Urine pH (4.5-7.5) Ur Specific Julian (1.000-1.030) Urine Protein (Negative) Urine Glucose (UA) (Negative) Urine Ketones (Negative) Urine Blood (Negative) Urine Nitrite (Negative) Urine Bilirubin (Negative) Urine Urobilinogen (Negative) Ur Leukocyte Esterase (Negative) Urine WBC (Auto) (0-5) /hpf Urine RBC (Auto) (0-4) /hpf U Hyaline Cast (Auto) (0-5) /lpf U Epithel Cells (Auto) (0-5) /lpf Urine Bacteria (Auto) (Negative) 07/14/21 07/14/21 07/14/21 Range/Units 12:16 12:16 12:50 WBC (4.8-10.8) K/uL RBC (4.2-5.4) M/uL Hgb (12.0-16.0) g/dL Hct (37-47) % MCV (80-100) fL MCH (25-34) pg MCHC (32-36) g/dL RDW Std Deviation (36.4-46.3) fL RDW Coeff of Chanelle (11.5-14.5) % Plt Count (130-400) K/uL MPV (7.4-10.4) fL Immature Gran % (Auto) % Neut % (Auto) % Lymph % (Auto) % [place] % (Auto) % Eos % (Auto) % Baso % (Auto) % Neut # (Auto) (1.4-6.5) K/uL Lymph # (Auto) (1.2-3.4) K/uL [place] # (Auto) (0.11-0.59) K/uL Eos # (Auto) (0-0.5) K/uL Baso # (Auto) (0-0.2) K/uL Immature Gran # (Auto) (0.00-0.02) K/uL PT (9.0-12.0) Seconds INR (0.9-1.1) Sodium (136-145) mmol/L Potassium (3.5-5.1) mmol/L Chloride (98-107) mmol/L Carbon Dioxide (21-32) mmol/L Anion Gap (3-11) BUN (6-23) mg/dl Creatinine (0.6-1.2) mg/dl Est Cr Clr Drug Dosing ml/min Est GFR ( Amer) ml/min Est GFR (Non-Af Amer) ml/min BUN/Creatinine Ratio (10-20) Glucose (70-99) mg/dl Lactate 0.8 (0.4-2.0) mmol/L Calcium (8.5-10.1) mg/dl Total Bilirubin (0.2-1.0) mg/dl AST (13-39) U/L ALT (7-52) U/L Alkaline Phosphatase (34-104) U/L Total Creatine Kinase (26-192) U/L Troponin I (0-0.04) ng/ml Total Protein (6.0-8.3) gm/dl Albumin (3.4-5.0) gm/dl Globulin (2.5-4.0) gm/dl Albumin/Globulin Ratio (0.9-2) Procalcitonin 0.09 (0-0.5) ng/ml Urine Color Yellow Urine Appearance Cloudy A (Clear) Urine pH 5.0 (4.5-7.5) Ur Specific Julian 1.017 (1.000-1.030) Urine Protein Trace H (Negative) Urine Glucose (UA) Negative (Negative) Urine Ketones Trace H (Negative) Urine Blood Negative (Negative) Urine Nitrite Negative (Negative) Urine Bilirubin Negative (Negative) Urine Urobilinogen Negative (Negative) Ur Leukocyte Esterase 2+ H (Negative) Urine WBC (Auto) 10-30 H (0-5) /hpf Urine RBC (Auto) 0-4 (0-4) /hpf U Hyaline Cast (Auto) >30 H (0-5) /lpf U Epithel Cells (Auto) >30 H (0-5) /lpf Urine Bacteria (Auto) 1+ H (Negative) Administered Medications Discontinued Medications Sodium Chloride (Nss 1000ml) 1,000 mls @ 999 mls/hr IV .[id number] NAVI Stop: 07/14/21 12:15 Last Infusion: 07/14/21 12:38 Dose: 0 mls/hr Documented by: [id number] Admin: 07/14/21 11:30 Dose: 999 mls/hr Documented by: [id number] Imaging Data Radiologist's Impression: Chest X-Ray 07/14/21 11:10 XR chest 1V portable CLINICAL HISTORY: Fall. COMPARISON STUDY: Chest radiograph December 24, 2020. FINDINGS: Lung volumes are normal. Lungs are clear. There is no pneumothorax or pleural effusion. Cardiac size is normal. Mediastinal contours are normal. There is no evidence for pulmonary edema. IMPRESSION: No acute cardiopulmonary findings. ACT 112: Negative or not required by law. Electronically signed by: Nir Yang M.D. 07/14/2021 12:[address] 07/14/21 11:11 CT OF THE CERVICAL SPINE WITHOUT CONTRAST CLINICAL HISTORY: Trauma/fall COMPARISON STUDY: Cervical spine CT July 12, 2021. TECHNIQUE: Helical axial images of the cervical spine were obtained without IV contrast. Sagittal and coronal reconstructions were viewed. Automated exposure control was utilized for the study. A dose lowering technique was utilized adhering to the principles of ALARA. FINDINGS: Slight anterolisthesis of C3 on C4 is unchanged from earlier exams. Mild anterolisthesis of C5 on C6 is also unchanged. This is chronic. Incomplete anterior and posterior arches of C1 are incidentally noted. There is no acute cervical spine fracture. Severe multilevel facet arthrosis is present. Multilevel disc space narrowing is most pronounced at C4-C5. IMPRESSION: No acute cervical spine fracture or subluxation. ACT 112: Negative or not required by law. Electronically signed by: Nir Yang M.D. 07/14/2021 12:[address] 07/14/21 11:11 CT OF THE HEAD WITHOUT CONTRAST CLINICAL HISTORY: Trauma/fall COMPARISON STUDY: Head CT July 13, 2021. MRI of the brain February 16, 2021. CT DOSE: 990.23 mGy.cm TECHNIQUE: Helical axial images of the head were obtained without IV contrast. Automated exposure control was utilized for the study. A dose lowering technique was utilized adhering to the principles of ALARA. FINDINGS: No acute intracranial hemorrhage, midline shift or mass effect is present. The ventricular system is stable. Multifocal encephalomalacia is unchanged since prior exam. This is also similar to MRI of February 16, 2021. The basal cisterns are patent. No extra-axial collections are present. There are no findings to suggest acute dural sinus thrombosis or acute territorial infarct. No significant calvarial abnormalities are present. Visualized portions of the sinuses and mastoid air cells are clear. IMPRESSION: 1. No acute intracranial findings. No change in appearance of the brain. Multiple old infarcts. 2. No calvarial fracture. ACT 112: Negative or not required by law. Electronically signed by: Nir Yang M.D. 07/14/2021 12:27 PM Knee X-Ray 07/14/21 11:46 XR knee LT 3V CLINICAL HISTORY: Left knee pain following fall. COMPARISON: Left knee radiographs November 13, 2008. FINDINGS: Alignment of the left knee is anatomic. No acute fracture. There is severe medial compartment joint space narrowing with osteophytosis. There is mild joint space narrowing and moderate osteophytosis within the patellofemoral compartment. Lateral compartment osteophytosis is present. No joint effusion is present. Significant progression of osteoarthritis since prior exam is noted. IMPRESSION: 1. No acute fracture or joint effusion of the left knee. 2. Severe left knee osteoarthritis, most pronounced within the medial compartment. ACT 112: Negative or not required by law. Electronically signed by: Nir Yang M.D. 07/14/2021 12:24 PM Discharge Plan Visit Data Chief Complaint: Fall Stated Complaint: SYNCOPE, FALLS ED Provider: Preet Warner Discharge Problem: NATTY (acute kidney injury), Ambulatory dysfunction Forms Stand Alone Forms: [facility] Prescriptions Prescriptions: No Action sennosides-docusate sodium [Senokot-S] 8.6-50 mg tablet 1 tab PO BID Qty: 180 RF: 1 venlafaxine 75 mg capsule,extended release 24hr 75 mg PO QAM RF: 0 venlafaxine 150 mg capsule,extended release 24hr 150 mg PO QAM RF: 0 quetiapine 300 mg Tablet Extended Release 24 Hr 300 mg PO HS RF: 0 trazodone 150 mg Tablet 150 mg PO HS RF: 0 bupropion HCl 150 mg Tablet Sustained-Release 12 Hr 150 mg PO PM RF: 0 hydroxyzine pamoate 25 mg Capsule 25 mg PO BID RF: 0 hydroxyzine pamoate 50 mg Capsule 50 mg PO HS RF: 0 lisinopril 20 mg tablet 20 mg PO PM RF: 0 pantoprazole 40 mg tablet,delayed release (DR/EC) 40 mg PO QAM PRN (Reason: gastric upset) RF: 0 gabapentin 100 mg capsule 300 mg PO PM RF: 0 acetaminophen [Tylenol Extra Strength] 500 mg Tablet 1,000 mg PO Q6H PRN (Reason: Pain) RF: 0 lorazepam 1 mg Tablet 1 mg PO BID PRN (Reason: Anxiety) RF: 0 Referrals Referrals: Pantera Matthews III, CRNP [Primary Care Provider] -
[2021-07-14] MEDS ORDERED: SODIUM CHLORIDE 0.9% 1000ML 1,000 ML IV SCH (11:15)
--- NOTE | 2021-07-14 12:13 | XRay Report ---
XR chest 1V portable CLINICAL HISTORY: Fall. COMPARISON STUDY: Chest radiograph December 24, 2020. FINDINGS: Lung volumes are normal. Lungs are clear. There is no pneumothorax or pleural effusion. Car diac size is normal. Mediastinal contours are normal. There is no evidence for pulmonary edema. IMPRESSION: No acute cardiopulmonary findings. ACT 112: Negative or not required by law. Electronically signed by: Nir Yang M.D. 07/14/2021 12:12 PM
--- NOTE | 2021-07-14 12:26 | XRay Report ---
XR knee LT 3V CLINICAL HISTORY: Left knee pain following fall. COMPARISON: Left knee radiographs November 13, 2008. FINDINGS: Alignment of the left knee is anatomic. No acute fracture. There is severe medial compartm ent joint space narrowing with osteophytosis. There is mild joint space narrowing and moderate osteop hytosis within the patellofemoral compartment. Lateral compartment osteophytosis is present. No joint effusion is present. Significant progression of osteoarthritis since prior exam is noted. IMPRESSION: 1. No acute fracture or joint effusion of the left knee. 2. Severe left knee osteoarthritis, most pronounced within the medial compartment. ACT 112: Negative or not required by law. Electronically signed by: Nir Yang M.D. 07/14/2021 12:24 PM
[2021-07-14 12:28] LABS: Basophils # (auto) 0.04 K/uL (0-0.2); Basophils % (auto) 0.5 %; Eosinophils % (auto) 1.2 %; Hematocrit (blood only) 38.2 % (37-47); Hemoglobin 12.3 g/dL (12.0-16.0); Immature Granulocytes # (auto) 0.02 K/uL (0.00-0.02); Immature Granulocytes % (auto) 0.2 %; Lymphocytes % (auto) 26.1 %; Mean Corpuscular Hemoglobin 26.1 pg (25-34); Mean Corpuscular Hgb Conc 32.2 g/dL (32-36); Mean Corpuscular Volume 81.1 fL (80-100); Mean Platelet Volume 9.2 fL (7.4-10.4); Monocytes # (auto) 0.67 K/uL (0.11-0.59); Monocytes % (auto) 7.9 %; Neutrophils % (auto) 64.1 %; Platelet Count 286 K/uL (130-400); RDW Coefficient of Variation 15.6 % (11.5-14.5); RDW Standard Deviation 45.9 fL (36.4-46.3); Red Blood Count 4.71 M/uL (4.2-5.4); White Blood Count 8.43 K/uL (4.8-10.8)
--- NOTE | 2021-07-14 12:28 | CT Scan Report ---
CT OF THE HEAD WITHOUT CONTRAST CLINICAL HISTORY: Trauma/fall COMPARISON STUDY: Head CT July 13, 2021. MRI of the brain February 16, 2021. CT DOSE: 990.23 mGy.cm TECHNIQUE: Helical axial images of the head were obtained without IV contrast. Automated exposure con trol was utilized for the study. A dose lowering technique was utilized adhering to the principles o f ALARA. FINDINGS: No acute intracranial hemorrhage, midline shift or mass effect is present. The ventricular system is stable. Multifocal encephalomalacia is unchanged since prior exam. This is also similar to MRI of February 16, 2021. The basal cisterns are patent. No extra-axial collections are present. There are no findings to suggest acute dural sinus thrombosis or acute territorial infarct. No significant calvarial abnormalities are present. Visualized portions of the sinuses and mastoid air cells are mahesh ar. IMPRESSION: 1. No acute intracranial findings. No change in appearance of the brain. Multiple old infarcts. 2. No calvarial fracture. ACT 112: Negative or not required by law. Electronically signed by: Nir Yang M.D. 07/14/2021 12:27 PM
--- NOTE | 2021-07-14 12:36 | CT Scan Report ---
CT OF THE CERVICAL SPINE WITHOUT CONTRAST CLINICAL HISTORY: Trauma/fall COMPARISON STUDY: Cervical spine CT July 12, 2021. TECHNIQUE: Helical axial images of the cervical spine were obtained without IV contrast. Sagittal a nd coronal reconstructions were viewed. Automated exposure control was utilized for the study. A do se lowering technique was utilized adhering to the principles of ALARA. FINDINGS: Slight anterolisthesis of C3 on C4 is unchanged from earlier exams. Mild anterolisthesis of C5 on C6 is also unchanged. This is chronic. Incomplete anterior and posterior arches of C1 are inci dentally noted. There is no acute cervical spine fracture. Severe multilevel facet arthrosis is prese nt. Multilevel disc space narrowing is most pronounced at C4-C5. IMPRESSION: No acute cervical spine fracture or subluxation. ACT 112: Negative or not required by law. Electronically signed by: Nir Yang M.D. 07/14/2021 12:35 PM
[2021-07-14 12:40] LABS: INR 1.1 (0.9-1.1); Prothrombin Time 11.1 Seconds (9.0-12.0)
[2021-07-14 13:03] LABS: Appearance Urine Cloudy (Clear); Bacteria Urine Automated 1+ (Negative); Bilirubin Urine Negative (Negative); Blood Urine Negative (Negative); Color Urine Yellow; Epithelial Cell Urine Auto >30 /lpf (0-5); Glucose Urine UA Negative (Negative); Ketones Urine Trace (Negative); Leukocyte Esterase Urine 2+ (Negative); Nitrite Urine Negative (Negative); Protein Urine Trace (Negative); RBC Urine Automated 0-4 /hpf (0-4); Specific Gravity Urine 1.017 (1.000-1.030); Urobilinogen Urine Negative (Negative)
[2021-07-14 13:04] LABS: Cast Urine Automated >30 /lpf (0-5)
[2021-07-14 13:07] LABS: Troponin I < 0.03 ng/ml (0-0.04)
[2021-07-14 13:11] LABS: Alanine Aminotransferase 12 U/L (7-52); Albumin Globulin Ratio 1.4 (0.9-2); Albumin Level 4.1 gm/dl (3.4-5.0); Alkaline Phosphatase 72 U/L (34-104); Anion Gap 8 (3-11); Aspartate Aminotransferase 11 U/L (13-39); BUN Creatinine Ratio 15.6 (10-20); Bilirubin,Total 0.7 mg/dl (0.2-1.0); Blood Urea Nitrogen 39 mg/dl (6-23); Calcium 9.2 mg/dl (8.5-10.1); Carbon Dioxide 22 mmol/L (21-32); Chloride 107 mmol/L (98-107); Creatine Kinase 67 U/L (26-192); Creatinine Clr Calc Pharmacy 20.6 ml/min; Est GFR (African American) 22.5 ml/min; Est GFR (Non-African American) 19.4 ml/min; Globulin 2.9 gm/dl (2.5-4.0); Glucose 93 mg/dl (70-99); Potassium 4.1 mmol/L (3.5-5.1); Sodium 137 mmol/L (136-145)
[2021-07-14] MEDS ORDERED: SODIUM CHLORIDE 0.9% 1000ML 1,000 ML IV ONE (13:32)
--- NOTE | 2021-07-14 14:18 | History & Physical Report ---
Date of Service July 14, 2021 Assessment & Plan (1) NATTY (acute kidney injury): Plan: Suspect pre-renal from decreased PO intake in setting of lisinopril use No signs or symptoms to suggest UTI 2L NSS given in ER. Continue Lactated ringer's @125ml/hr Stop lisinopril and avoid NSAIDs Repeat BMP in AM (2) Recurrent falls: Plan: Suspect some degree of concussion from her initial fall in setting of NATTY No fractures from the fall PT/OT (3) CHI (closed head injury): Plan: PT/OT evals No bleed on x3 CT head in 3 days (4) Anxiety: Plan: Reportedly takes lorazepam at home but when pressed as this does not appear on her PDMP she is unable to confirm which pharmacy she picked this up from, urine toxicology also negative for benzodiazepines. PDMP - she was prescribed lorazepam last in 10/2019 by the discharging provider from the hospital. I do not believe she is on this medication therefore taken off her home medication list. Given main reason for admission is falls I am reluctant to give her this but having significant anxiety in the ER will prescribe 0.5mg Q12H PRN for 2 days. Multiple medications for anxiety and depression including bupropion, venlafaxine, quetiapine. Urine toxicology positive for MDMA suspect falsely due to bupropion. Consult psychiatry (5) Grief reaction: Plan: 2 weeks previously (6) Ambulatory dysfunction: Plan: PT/OT (7) Hypertension: Plan: Hypotensive on arrival to ER. Resolved with IV fluids. Hold lisinopril. Plan: VTE Prophylaxis - low risk Diet - regular Disposition - observation status to med/surg Admission and Anticipated Discharge Date Admission Date: July 14, 2021 History of Present Illness Chief Complaint: Recurrent falls Primary Care Provider: Pantera Matthews, III, COURTNEY Nevin Suarez is a 65 year old female who returns to the ER due to recurrent falls at home since hitting her head. This is her third ER visit in the past 3 days. She reports feeling dizzy before falling and unbalanced on her feet. No room spinning. Associated molina vision changing and headache. Initial fall was on the but since then she has been more confused and falling 2-3 times a day. Her on June 26 and since then has been feeling very depressed, sleeping a lot more and barely eating or drinking and urinating much less than usual. No fever chills, cough, nausea, vomiting, chest pain, abdominal pain, constipation, diarrhea, dysuria, urinary frequency, smell or change in color. Allergies Allergy/AdvReac Type Severity Reaction Status Date / Time No Known Allergies Allergy Unverified 07/14/21 11:26 Home Medications Medication Instructions Recorded Confirmed Type bupropion HCl 150 mg tablet,12 hr 150 mg PO PM 08/28/19 07/14/21 History sustained-release hydroxyzine pamoate 25 mg capsule 25 mg PO BID 08/28/19 07/14/21 History hydroxyzine pamoate 50 mg capsule 50 mg PO HS 08/28/19 07/14/21 History quetiapine 300 mg tablet,extended 300 mg PO HS 08/28/19 07/14/21 History release 24 hr trazodone 150 mg tablet 150 mg PO HS 08/28/19 07/14/21 History venlafaxine 150 mg 150 mg PO QAM cap 11/19/19 07/14/21 History capsule,extended release 24 hr venlafaxine 75 mg capsule,extended 75 mg PO QAM cap 11/19/19 07/14/21 History release 24 hr sennosides 8.6 mg-docusate sodium 1 tab PO BID #180 tab 12/22/20 07/14/21 Rx 50 mg tablet (Senokot-S) acetaminophen 500 mg tablet 1,000 mg PO Q6H PRN 07/13/21 07/14/21 History (Tylenol Extra Strength) gabapentin 100 mg capsule 300 mg PO PM 07/13/21 07/14/21 History lisinopril 20 mg tablet 20 mg PO PM 07/13/21 07/14/21 History pantoprazole 40 mg tablet,delayed 40 mg PO QAM PRN 07/13/21 07/14/21 History release Past Med/Surg History Medical History NATTY (acute kidney injury) Depression Hypertension Stroke Surgical History H/O tubal ligation No pertinent past surgical history Family History Denies family history of Ovarian cancer Prostate cancer Myocardial infarction Breast cancer Colorectal cancer Colonic polyp Social History Smoking Status: Never smoker Second Hand Exposure: No; Hx Alcohol Use: No Hx Substance Use: No Preferred Language: Malay Communication Ability: Effective Visual Impairment: No Limitations Hearing Ability: Normal Msws Required: No Beliefs That Will Affect Care: Gnosticism Gnosticism Beliefs: Restorationism Belief marital status: Life Partner Current Living Situation: Alone current occupational status: disabled How many Children do You have: 1 Other Information That Helps Us Care for You: No Feels Safe at Home: Yes Safety Concerns: Feels Safe At This Time Childhood Exposure to Second-Hand Smoke: No Dental Care, Regularly: No Physical Activity Frequency: Does not Exercise Seatbelt Use: always Sunscreen Use: No Assistive Devices: None Review of Systems Review of Systems: All systems reviewed & are unremarkable except as noted in HPI & below Physical Exam Constitutional: WD/WN, vitals as above Eyes: PERRL, conjunctivae normal, anicteric sclerae ENMT: external ear and nose normal, oropharynx normal Neck: trachea midline, no thyromegaly Respiratory: normal respiratory effort, lungs clear to auscultation Cardiovascular: Rate/Rhythm: regular rate and regular rhythm Heart Sounds: no murmur Extremities: normal capillary refill; no calf tenderness and no pedal edema Gastrointestinal (Abdomen): normal bowel sounds, soft, nontender, no hepatosplenomegaly Musculoskeletal: no cyanosis or clubbing, extremities motor strength 5/5 Skin: no rashes, warm and dry + ecchymosis (forehead) Neurologic: moves all extremities and awake; no focal motor deficits (no lateralizing deficit) and not confused Psychiatric: A+Ox3, euthymic affect Affect: + anxious affect Genitourinary: no CVA tenderness Results & Data Results & Data ([facility]) Vital Signs (Past 12 Hours) Vital Signs Temp Pulse Resp BP Pulse Ox 07/14/21 11:32 36.4 C L 90 21 96/60 L 100 Laboratory Results Abnormal lab results 07/14/21 07/14/21 07/14/21 Range/Units 12:16 12:16 12:50 RDW Coeff of Chanelle 15.6 H (11.5-14.5) % Conway # (Auto) 0.67 H (0.11-0.59) K/uL BUN 39 H (6-23) mg/dl Creatinine 2.50 H D (0.6-1.2) mg/dl AST 11 L (13-39) U/L Urine Appearance Cloudy A (Clear) Urine Protein Trace H (Negative) Urine Ketones Trace H (Negative) Ur Leukocyte Esterase 2+ H (Negative) Urine WBC (Auto) 10-30 H (0-5) /hpf U Hyaline Cast (Auto) >30 H (0-5) /lpf U Epithel Cells (Auto) >30 H (0-5) /lpf Urine Bacteria (Auto) 1+ H (Negative) Diagnostic Findings CT OF THE HEAD WITHOUT CONTRAST CLINICAL HISTORY: Trauma/fall COMPARISON STUDY: Head CT July 13, 2021. MRI of the brain February 16, 2021. CT DOSE: 990.23 mGy.cm TECHNIQUE: Helical axial images of the head were obtained without IV contrast. Automated exposure control was utilized for the study. A dose lowering technique was utilized adhering to the principles of ALARA. FINDINGS: No acute intracranial hemorrhage, midline shift or mass effect is present. The ventricular system is stable. Multifocal encephalomalacia is unchanged since prior exam. This is also similar to MRI of February 16, 2021. The basal cisterns are patent. No extra-axial collections are present. There are no findings to suggest acute dural sinus thrombosis or acute territorial infarct. No significant calvarial abnormalities are present. Visualized portions of the sinuses and mastoid air cells are clear. IMPRESSION: 1. No acute intracranial findings. No change in appearance of the brain. Multiple old infarcts. 2. No calvarial fracture. CT OF THE CERVICAL SPINE WITHOUT CONTRAST CLINICAL HISTORY: Trauma/fall COMPARISON STUDY: Cervical spine CT July 12, 2021. TECHNIQUE: Helical axial images of the cervical spine were obtained without IV contrast. Sagittal and coronal reconstructions were viewed. Automated exposure control was utilized for the study. A dose lowering technique was utilized adhering to the principles of ALARA. FINDINGS: Slight anterolisthesis of C3 on C4 is unchanged from earlier exams. Mild anterolisthesis of C5 on C6 is also unchanged. This is chronic. Incomplete anterior and posterior arches of C1 are incidentally noted. There is no acute cervical spine fracture. Severe multilevel facet arthrosis is present. Multilevel disc space narrowing is most pronounced at C4-C5. IMPRESSION: No acute cervical spine fracture or subluxation. XR chest 1V portable CLINICAL HISTORY: Fall. COMPARISON STUDY: Chest radiograph December 24, 2020. FINDINGS: Lung volumes are normal. Lungs are clear. There is no pneumothorax or pleural effusion. Cardiac size is normal. Mediastinal contours are normal. There is no evidence for pulmonary edema. IMPRESSION: No acute cardiopulmonary findings. XR knee LT 3V CLINICAL HISTORY: Left knee pain following fall. COMPARISON: Left knee radiographs November 13, 2008. FINDINGS: Alignment of the left knee is anatomic. No acute fracture. There is severe medial compartment joint space narrowing with osteophytosis. There is mild joint space narrowing and moderate osteophytosis within the patellofemoral compartment. Lateral compartment osteophytosis is present. No joint effusion is present. Significant progression of osteoarthritis since prior exam is noted. IMPRESSION: 1. No acute fracture or joint effusion of the left knee. 2. Severe left knee osteoarthritis, most pronounced within the medial compartment. Medications Administered ER Medications Given: NSS 2L bolus ECG Indication: other Rate (beats per minute): 81 Rhythm: normal sinus Findings: no acute ischemic change Comparison ECG Date: from (Jul 13, 2021) Change: no significant change Code Status & VTE Plan Code Status Full VTE Prophylaxis Plan VTE Prophylaxis will be ordered: No Reason for no VTE drug order: Treatment not indicated Reason for no VTE mechanical prophylaxis: Treatment not indicated PG Care Time/CCT Total # of Minutes Spent Total Time Spent with Patient: Total time spent is greater than 50% in coordination of care (as documented) at patient's floor/unit and/or counseling patient: Coding Level of Care Code INT OBSERVATION CARE 50M LVL 2 Diagnoses CHI (closed head injury) S09.90XA Encounter type: initial encounter NATTY (acute kidney injury) N17.9 Grief reaction F43.21 Ambulatory dysfunction R26.2 Anxiety F41.9 Hypertension I10 Hypertension type: unspecified Recurrent falls R29.6 (1) CHI (closed head injury) Encounter type: initial encounter Qualified Code(s): S09.90XA - Unspecified injury of head, initial encounter (2) Hypertension Hypertension type: unspecified Qualified Code(s): I10 - Essential (primary) hypertension
[2021-07-14 15:38] LABS: Amphetamines+Metham, Urine Neg (Neg); Barbiturates, Urine Neg (Neg); Benzodiazepine, Urine Neg (Neg); Cocaine, Urine Neg (Neg); MDMA (Ecstacy), Urine Pos (Neg); Methadone, Urine Neg (Neg); Opiate, Urine Neg (Neg); Phencyclidine, Urine Neg (Neg)
[2021-07-14] MEDS ORDERED: LORazepam 0.5 MG TAB PO STA (15:44)
[2021-07-14] MEDS ORDERED: POLYETHYLENE (MIRALAX) 17 GM PACK PO PRN (16:26)
[2021-07-14] MEDS ORDERED: ONDANSETRON INJ 2 MG/ML 2 ML VIAL IV PRN (16:26)
[2021-07-14] MEDS ORDERED: ALUMINUM/MAGNESIUM SUSP 30 ML UDC PO PRN (16:26)
[2021-07-14] MEDS ORDERED: LORazepam 1 MG TAB PO PRN (16:56)
[2021-07-14] MEDS: ACETAMINOPHEN 325 MG TAB PO PRN (17:12)
[2021-07-14] MEDS: LACTATED RINGER'S 1,000 ML IV SCH (17:19)
[2021-07-14] MEDS ORDERED: GABAPENTIN 300 MG CAP PO SCH (21:00)
[2021-07-14] MEDS ORDERED: COUGH DROP (SUGAR FREE) LOZ 24 LOZ/1 BOX BUCCAL PRN (21:06)
[2021-07-14] MEDS ORDERED: oxyCODONE HCL IR 5 MG TAB (IMMEDIATE RELEASE) PO STA (21:08)
[2021-07-14] MEDS: LORazepam 0.5 MG TAB PO PRN (21:19)
[2021-07-14] MEDS: hydrOXYzine HCl 25 MG TAB PO SCH (21:20)
[2021-07-14] MEDS: buPROPion SR 150 MG TABCR PO SCH ×2 (21:20→21:31)
[2021-07-14] MEDS: traZODone HCL 50 MG TAB PO SCH (21:20)
[2021-07-15] MEDS: ACETAMINOPHEN 325 MG TAB PO PRN ×3 (02:46→20:12)
[2021-07-15] MEDS: LACTATED RINGER'S 1,000 ML IV SCH ×2 (02:47→10:48)
[2021-07-15] MEDS: PANTOprazole 40 MG TAB PO SCH (09:06)
[2021-07-15] MEDS: VENLAFAXINE HCL XR 150 MG CAPXR PO SCH (09:06)
[2021-07-15] MEDS: VENLAFAXINE HCL XR 75 MG CAPXR PO SCH (09:06)
[2021-07-15] MEDS: hydrOXYzine HCl 25 MG TAB PO SCH ×3 (09:06→20:13)
[2021-07-15] MEDS: LORazepam 0.5 MG TAB PO PRN ×2 (09:10→20:12)
[2021-07-15 09:45] LABS: BUN Creatinine Ratio 22.1 (10-20); Calcium 8.4 mg/dl (8.5-10.1); Creatinine Clr Calc Pharmacy 33.5 ml/min; Est GFR (African American) 40.3 ml/min; Est GFR (Non-African American) 34.8 ml/min; Potassium 4.4 mmol/L (3.5-5.1)
--- NOTE | 2021-07-15 09:45 | Electrocardiogram Report ---
Test Reason : Blood Pressure : / mmHG Vent. Rate : 081 BPM Atrial Rate : 081 BPM P-R Int : 142 ms QRS Dur : 072 ms QT Int : 396 ms P-R-T Axes : 021 054 066 degrees QTc Int : 460 ms Normal sinus rhythm Normal ECG When compared with ECG of 13-JUL-2021 18:33, No significant change was found Confirmed by Qamar Bee ([id number]) on 07/15/2021 9:45:25 AM Referred By: REFERRED SELF Confirmed By:Qamar Bee
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
--- NOTE | 2021-07-15 14:21 | Hospitalist Progress Note ---
Date of Service July 15, 2021 Assessment & Plan (1) NATTY (acute kidney injury): Plan: Suspect pre-renal from decreased PO intake in setting of lisinopril use No signs or symptoms to suggest UTI 2L NSS given in ER. Continue Lactated ringer's @125ml/hr Stop lisinopril and avoid NSAIDs Repeat BMP in AM indicates improvement. Cr 1.5. At baseline. (2) Recurrent falls: Plan: Suspect some degree of concussion from her initial fall in setting of NATTY No fractures from the fall PT/OT recommend home. (3) CHI (closed head injury): Plan: PT/OT evals No bleed on x3 CT head in 3 days (4) Anxiety: Plan: Reportedly takes lorazepam at home but when pressed as this does not appear on her PDMP she is unable to confirm which pharmacy she picked this up from, urine toxicology also negative for benzodiazepines. PDMP - she was prescribed lorazepam last in 10/2019 by the discharging provider from the hospital. I do not believe she is on this medication therefore taken off her home medication list. Given main reason for admission is falls I am reluctant to give her this but having significant anxiety in the ER will prescribe 0.5mg Q12H PRN for 2 days. Multiple medications for anxiety and depression including bupropion, venlafaxine, quetiapine. Urine toxicology positive for MDMA suspect falsely due to bupropion. - Consulted psychiatry -> Plan to keep current medications. (5) Grief reaction: Plan: 2 weeks previously (6) Ambulatory dysfunction: Plan: PT/OT (7) Hypertension: Plan: Hypotensive on arrival to ER. Resolved with IV fluids. Hold lisinopril. Plan: VTE Prophylaxis - low risk Diet - regular Disposition - observation status to med/surg Admission and Anticipated Discharge Date Admission Date: July 14, 2021 Subjective Doing well, but anxious. She requests more Ativan. Reports no fevers/chills, chest pain, shortness of breath, abdominal pain, nausea, or vomiting. Physical Exam Constitutional: WD/WN, vitals as above Eyes: EOM intact bilaterally; no conjunctival abnormality ENMT: external ear and nose normal, oropharynx normal Neck: trachea midline, no thyromegaly normal visual inspection Respiratory: normal respiratory effort, lungs clear to auscultation no respiratory distress Cardiovascular: RRR, no murmur, no edema Gastrointestinal (Abdomen): Inspection/Auscultation: abdomen normal to inspection; abdomen not distended Musculoskeletal: no cyanosis or clubbing, extremities motor strength 5/5 Skin: no rashes, warm and dry Neurologic: moves all extremities and awake Psychiatric: Orientation: alert, oriented to person and cooperative Results & Data Results & Data ([facility]) Vital Signs (Past 12 Hours) Vital Signs Temp Pulse Resp BP Pulse Ox 07/15/21 07:16 37 C 88 18 113/67 98 PG Care Time/CCT Total # of Minutes Spent Total Time Spent with Patient: Total time spent is greater than 50% in coordination of care (as documented) at patient's floor/unit and/or counseling patient: Coding Level of Care Code 20896 [facility] Hosp Care Lvl 2 Diagnoses NATTY (acute kidney injury) N17.9 Recurrent falls R29.6 CHI (closed head injury) S09.90XA Encounter type: initial encounter Anxiety F41.9 Grief reaction F43.21 Ambulatory dysfunction R26.2 Hypertension I10 Hypertension type: unspecified (1) CHI (closed head injury) Encounter type: initial encounter Qualified Code(s): S09.90XA - Unspecified injury of head, initial encounter (2) Hypertension Hypertension type: unspecified Qualified Code(s): I10 - Essential (primary) hypertension
[2021-07-15] MEDS: buPROPion SR 150 MG TABCR PO SCH (15:05)
[2021-07-15] MEDS: traZODone HCL 50 MG TAB PO SCH (20:13)
[2021-07-15] MEDS ORDERED: MELATONIN 3 MG TAB PO ONE (23:38)
[2021-07-15] MEDS ORDERED: CALCIUM CARBONATE 500 MG CHEWABLE TAB PO ONE (23:38)
[2021-07-16] MEDS: ACETAMINOPHEN 325 MG TAB PO PRN (07:20)
[2021-07-16] MEDS ORDERED: GABAPENTIN 300 MG CAP PO STA (07:32)
[2021-07-16] MEDS: VENLAFAXINE HCL XR 75 MG CAPXR PO SCH (08:12)
[2021-07-16] MEDS: VENLAFAXINE HCL XR 150 MG CAPXR PO SCH (08:12)
[2021-07-16] MEDS: hydrOXYzine HCl 25 MG TAB PO SCH ×3 (08:13→20:22)
[2021-07-16] MEDS: LORazepam 0.5 MG TAB PO PRN ×2 (08:13→20:21)
[2021-07-16] MEDS: PANTOprazole 40 MG TAB PO SCH (08:13)
[2021-07-16 08:27] LABS: Hematocrit (blood only) 32.6 % (37-47); Hemoglobin 10.1 g/dL (12.0-16.0); Mean Corpuscular Hemoglobin 25.6 pg (25-34); Mean Corpuscular Volume 82.7 fL (80-100); Mean Platelet Volume 9.4 fL (7.4-10.4); Platelet Count 242 K/uL (130-400); RDW Coefficient of Variation 15.5 % (11.5-14.5); RDW Standard Deviation 47.7 fL (36.4-46.3); Red Blood Count 3.94 M/uL (4.2-5.4); White Blood Count 6.93 K/uL (4.8-10.8)
[2021-07-16 09:00] LABS: BUN Creatinine Ratio 14.7 (10-20); Calcium 8.8 mg/dl (8.5-10.1); Creatinine Clr Calc Pharmacy 34.4 ml/min; Est GFR (African American) 41.6 ml/min; Est GFR (Non-African American) 35.9 ml/min; Magnesium 1.7 mg/dl (1.7-2.4); Potassium 4.2 mmol/L (3.5-5.1)
--- NOTE | 2021-07-16 09:41 | Communication Note ---
Date of Service: July 16, 2021 interim progress reviewed, our service was contacted by primary nurse and Dr. Mccain re: patient's request for more frequent benzodiazepine. Reviewed that given age, substance use hx, fall risk, recent head injury and lack of an outpatient prescriber (no evidence in surescripts or PDMP since 2019), would recommend not continue prn on discharge. benzos also have a depressant effect and she is experiencing grief reaction. She is already prescribed total of 100 mg Vistaril a day and would not increase due to anticholinergic effects. She did sign a release for [facility] today and we will be confirming her outpatient appointments.
[2021-07-16] MEDS: lisinopril 20 MG TAB PO SCH (13:13)
[2021-07-16] MEDS: buPROPion SR 150 MG TABCR PO SCH (13:18)
--- NOTE | 2021-07-16 13:53 | Hospitalist Progress Note ---
Date of Service July 16, 2021 Assessment & Plan (1) NATTY (acute kidney injury): Plan: Suspect pre-renal from decreased PO intake in setting of lisinopril use No signs or symptoms to suggest UTI 2L NSS given in ER. Continue Lactated ringer's @125ml/hr Stop lisinopril and avoid NSAIDs Repeat BMP in AM indicates improvement. Cr 1.5. At baseline. (2) Recurrent falls: Plan: Suspect some degree of concussion from her initial fall in setting of NATTY No fractures from the fall PT/OT recommend home with home services. (3) CHI (closed head injury): Plan: PT/OT evals No bleed on x3 CT head in 3 days (4) Anxiety: Plan: Reportedly takes lorazepam at home but when pressed as this does not appear on her PDMP she is unable to confirm which pharmacy she picked this up from, urine toxicology also negative for benzodiazepines. PDMP - she was prescribed lorazepam last in 10/2019 by the discharging provider from the hospital. I do not believe she is on this medication therefore taken off her home medication list. Given main reason for admission is falls I am reluctant to give her this but having significant anxiety in the ER will prescribe 0.5mg Q12H PRN for 2 days. Multiple medications for anxiety and depression including bupropion, venlafaxine, quetiapine. Urine toxicology positive for MDMA suspect falsely due to bupropion. - Consulted psychiatry -> Plan to keep current medications. They are reaching out to [facility]. (5) Grief reaction: Plan: 2 weeks previously (6) Ambulatory dysfunction: Plan: PT/OT (7) Hypertension: Plan: Hypotensive on arrival to ER. Resolved with IV fluids. BP now up to 180/80. - Restart lisinopril. Plan: VTE Prophylaxis - low risk Diet - regular Disposition - observation status to med/surg Admission and Anticipated Discharge Date Admission Date: July 14, 2021 Subjective Had trouble sleeping last night. Reports no fevers/chills, chest pain, shortness of breath, abdominal pain, nausea, or vomiting. Physical Exam Constitutional: WD/WN, vitals as above Eyes: EOM intact bilaterally; no conjunctival abnormality ENMT: external ear and nose normal, oropharynx normal Neck: trachea midline, no thyromegaly normal visual inspection Respiratory: normal respiratory effort, lungs clear to auscultation no res piratory distress Cardiovascular: RRR, no murmur, no edema Gastrointestinal (Abdomen): Inspection/Auscultation: abdomen normal to inspection; abdomen not distended Musculoskeletal: no cyanosis or clubbing, extremities motor strength 5/5 Skin: no rashes, warm and dry Neurologic: moves all extremities and awake Psychiatric: Orientation: alert, oriented to person and cooperative Results & Data Results & Data ([facility]) Vital Signs (Past 12 Hours) Vital Signs Temp Pulse Resp BP Pulse Ox 07/16/21 08:41 36.8 C 82 16 181/80 H 99 PG Care Time/CCT Total # of Minutes Spent Total Time Spent with Patient: Total time spent is greater than 50% in coordination of care (as documented) at patient's floor/unit and/or counseling patient: Coding Level of Care Code 80602 Subseq Obs Care Lvl 2 Diagnoses NATTY (acute kidney injury) N17.9 Recurrent falls R29.6 CHI (closed head injury) S09.90XA Encounter type: initial encounter Anxiety F41.9 Grief reaction F43.21 Ambulatory dysfunction R26.2 Hypertension I10 Hypertension type: unspecified (1) CHI (closed head injury) Encounter type: initial encounter Qualified Code(s): S09.90XA - Unspecified injury of head, initial encounter (2) Hypertension Hypertension type: unspecified Qualified Code(s): I10 - Essential (primary) hypertension
[2021-07-16] MEDS: traZODone HCL 50 MG TAB PO SCH (20:22)
[2021-07-16] MEDS ORDERED: GABAPENTIN 300 MG CAP PO SCH (21:00)
[2021-07-17 07:05] LABS: Estimated Average Glucose 120 mg/dl; Hemoglobin A1C 5.8 % (4.5-5.6)
[2021-07-17] MEDS: lisinopril 20 MG TAB PO SCH (08:34)
[2021-07-17] MEDS: hydrOXYzine HCl 25 MG TAB PO SCH (08:34)
[2021-07-17] MEDS: VENLAFAXINE HCL XR 75 MG CAPXR PO SCH (08:35)
[2021-07-17] MEDS: PANTOprazole 40 MG TAB PO SCH (08:35)
[2021-07-17] MEDS: VENLAFAXINE HCL XR 150 MG CAPXR PO SCH (08:35)
--- NOTE | 2021-07-17 13:05 | Discharge Summary ---
Date of Service July 17, 2021 Admission HPI Per Admitting Provider Nevin Suarez is a 65 year old female who returns to the ER due to recurrent falls at home since hitting her head. This is her third ER visit in the past 3 days. She reports feeling dizzy before falling and unbalanced on her feet. No room spinning. Associated molina vision changing and headache. Initial fall was on the but since then she has been more confused and falling 2-3 times a day. Her on June 26 and since then has been feeling very depressed, sleeping a lot more and barely eating or drinking and urinating much less than usual. No fever chills, cough, nausea, vomiting, chest pain, abdominal pain, constipation, diarrhea, dysuria, urinary frequency, smell or change in color. Principal Diagnosis Likely lorazepam-induced dizziness, falls, weakness Mild acute kidney injury Discharge Exam Constitutional WD/WN, vitals as above Eyes EOM intact bilaterally; no conjunctival abnormality ENMT external ear and nose normal, oropharynx normal Neck trachea midline, no thyromegaly normal visual inspection Respiratory normal respiratory effort, lungs clear to auscultation no respiratory distress Cardiovascular RRR, no murmur, no edema Gastrointestinal (Abdomen) Inspection/Auscultation: abdomen normal to inspection; abdomen not distended Musculoskeletal no cyanosis or clubbing, extremities motor strength 5/5 Skin no rashes, warm and dry Neurologic moves all extremities and awake Motor/Sensory: no tremor Psychiatric Orientation: alert, oriented to person and cooperative Discharge Data Allergies Allergy/AdvReac Type Severity Reaction Status Date / Time No Known Allergies Allergy Unverified 07/14/21 11:26 Consultations 07/14/21 14:17 ED Decision to Admit Stat 07/14/21 16:26 Consult Psychiatry Routine Ordered Studies 07/14/21 11:11 CT cervical spine wo con Stat CT head/brain wo con Stat Hospital Course (1) NATTY (acute kidney injury): Suspect pre-renal from decreased PO intake in setting of lisinopril use. No signs or symptoms to suggest UTI. 2L NSS given in ER. Continue Lactated ringer's @125ml/hr Stop lisinopril and avoid NSAIDs Repeat BMP in AM indicates improvement. Cr 1.5. At baseline. (2) Benzodiazepine abuse: Patient reported taking lorazepam every 4 hours at home. It turned out this was the patient's 's liquid from when he was on hospice. Possible she was taking 2 - 4 mg per dose, though no way to confirm this. Patient acted surprised when confronted with this fact and said she thought it was her prescription. Family checked patient's room and removed all scripts that were not for her. [facility] notified that patient's spouse had and told not to refill any of his medications. (3) Recurrent falls: Due to benzo use. No fractures from the fall. - PT/OT recommended home with home services. Arranged by CM. (4) CHI (closed head injury): PT/OT evals No bleed on x3 CT head in 3 days (5) Anxiety: - Consulted psychiatry -> Plan to keep current medications. [facility] (6) Grief reaction: 2 weeks previously (7) Ambulatory dysfunction: PT/OT (8) Hypertension: Hypotensive on arrival to ER. Resolved with IV fluids. BP now up to 180/80. - Restart lisinopril. Total Time Total Time Spent Total Time Spent (In Minutes): 35 Discharge Plan Discharge Items Patient Disposition: Home - Home Health Services Reason For Visit: NATTY Discharge Diagnosis: Confusion, falls from medication usage Mild kidney injury - now resolved Activity: Resume your previous activity Non-emergency contact: Primary Care Provider and Psychiatrist Call non-emergency contact if: your symptoms worsen Follow-up/Referrals: Nelly De La Paz [Other] - 07/31/21 3:40 pm (Please arrive 20 minutes prior to appt. If you need a sooner appt or need to cancel, please call office) aPntera Matthews III, CRNP [Primary Care Provider] - 07/19/21 4:00 pm (Seeing Jana Mancera) Diet: Regular Addtl Attending Provider Instructions: Ms. Suarez, You were admitted to the hospital with confusion, dizziness, falls, and weakness at home. A large part of this was likely from the lorazepam you were taking at home. This was actually your spouse's medication, and you should not mix it with your other psychiatric medications. In combination, this can cause all of the symptoms you were experiencing. We have given you some fluids to help your kidneys, and they are back to normal for you. Please drink plenty of water to help stay hydrated. You should have urine that is light yellow which shows you are hydrated. There was some discussion about you having diabetes, but this is not the case. Your testing showed that your blood sugars are quite well controlled without any medication. Please follow up with your PCP to keep an eye on this issue. Pending Studies at Discharge: No Stand-Alone Forms: My [facility], Smoking Cessation Medications and DC Order Prescriptions: Continued sennosides-docusate sodium [Senokot-S] 8.6-50 mg tablet 1 tab PO BID Qty: 180 RF: 1 venlafaxine 75 mg capsule,extended release 24hr 75 mg PO QAM RF: 0 venlafaxine 150 mg capsule,extended release 24hr 150 mg PO QAM RF: 0 quetiapine 300 mg Tablet Extended Release 24 Hr 300 mg PO HS RF: 0 trazodone 150 mg Tablet 150 mg PO HS RF: 0 bupropion HCl 150 mg Tablet Sustained-Release 12 Hr 150 mg PO PM RF: 0 hydroxyzine pamoate 25 mg Capsule 25 mg PO BID RF: 0 hydroxyzine pamoate 50 mg Capsule 50 mg PO HS RF: 0 lisinopril 20 mg tablet 20 mg PO PM RF: 0 pantoprazole 40 mg tablet,delayed release (DR/EC) 40 mg PO QAM PRN (Reason: gastric upset) RF: 0 gabapentin 100 mg capsule 300 mg PO PM RF: 0 acetaminophen [Tylenol Extra Strength] 500 mg Tablet 1,000 mg PO Q6H PRN (Reason: Pain) RF: 0 gabapentin 200 mg 200 mg PO QAM RF: 0 Discharge Orders: Discharge Order (Routine); Ordered 07/17/21 Ordered By: Luca Mccain Admission Data Admit Date/Time: 07/14/21 14:44 Attending Provider: Luca Mccain Admit Provider: Pedro Cyr Primary Care Provider: Pantera Matthews III Other Providers: Ashley Waite ; Sirena Koenig ; Carmina Avila ; Mikhail Abarca ; Luca Mccain ; [place] Other Interventions: Discharge Summary Assessment (RN) Last Done: 07/17/21 11:23 Coding Level of Care Code 92382 OBS Care - Discharge Diagnoses NATTY (acute kidney injury) N17.9 Recurrent falls R29.6 CHI (closed head injury) S09.90XA Encounter type: initial encounter Anxiety F41.9 Grief reaction F43.21 Ambulatory dysfunction R26.2 Hypertension I10 Hypertension type: unspecified Benzodiazepine abuse F13.10
[2021-07-19 08:46] LABS: MDA negative; MDEA negative; MDMA (Ecstasy) Urine, Confirm negative
== END 2021-07-17 12:03 | disposition home health service (06) ==
LOC: 3N 10:56 → ED 10:56 → SUATTDRO 14:44 → 3N 16:00